=== PATIENT | male | born 1990 | race African-American/Black ===

== ENCOUNTER 2021-06-06 21:34 | Emergency (ER) | payer OTHER ==
[2021-06-06 21:49] VITALS: BP 159/91; PULSE 113; RESP 20; TEMP 98.7
[2021-06-06] MEDS ORDERED: CEPHALEXIN 500MG STARTER PACK 4 CAP BTL PO STA (22:20)
[2021-06-06] MEDS ORDERED: SULFAMETH-TMP DS STARTER PACK 2 TAB BTL PO STA (22:20)
--- NOTE | 2021-06-06 22:21 | ED ---
General Adult HPI - General Chief complaint: Skin/Abscess/Foreign Body Stated complaint: R Thigh Abscess Time Seen by Provider: 06/06/21 22:12 Source: patient, RN notes reviewed Mode of arrival: ambulatory Limitations: no limitations - History of Present Illness Initial comments: 30-year-old male presents emergency Department chief complaint of abscess to his right thigh region. Patient states started days ago states it ruptured a large hole. Patient states he drank a bunch of pus which has stopped with states she's noticed a fall or a period is a diabetic his blood sugars have been well controlled at this time. No other complaints of fevers or chills. - Related Data Previous Rx's Medication Instructions Recorded Cephalexin [Keflex] 500 mg PO Q6HR #40 cap 06/06/21 Sulfamethox-Tmp 800-160Mg [Bactrim 1 each PO Q12HR #20 tab 06/06/21 Ds] Allergies Allergy/AdvReac Type Severity Reaction Status Date / Time Penicillins Allergy Unknown Verified 06/06/21 21:45 Review of Systems ROS Statement: Those systems with pertinent positive or pertinent negative responses have been documented in the HPI. ROS Other: All systems not noted in ROS Statement are negative. Past Medical History Past Medical History: Asthma, Diabetes Mellitus History of Any Multi-Drug Resistant Organisms: None Reported Past Surgical History: No Surgical Hx Reported Past Psychological History: No Psychological Hx Reported Smoking Status: Never smoker Past Alcohol Use History: Rare Past Drug Use History: None Reported General Exam Limitations: no limitations General appearance: alert, in no apparent distress Head exam: Present: atraumatic, normocephalic, normal inspection Eye exam: Present: normal appearance, PERRL, EOMI. Absent: scleral icterus, conjunctival injection, periorbital swelling Respiratory exam: Present: normal lung sounds bilaterally. Absent: respiratory distress, wheezes, rales, rhonchi, stridor Cardiovascular Exam: Present: regular rate, normal rhythm, normal heart sounds. Absent: systolic murmur, diastolic murmur, rubs, gallop, clicks GI/Abdominal exam: Present: soft, normal bowel sounds. Absent: distended, tenderness, guarding, rebound, rigid Extremities exam: Present: other (Right posterior thigh region there is a 2 cm open very large open abscess with no active drainage, no induration.) Course Vital Signs 12/08/21 21:46 Temperature 98.7 F Pulse Rate 113 H Respiratory 20 Rate Blood Pressure 159/91 O2 Sat by Pulse 97 Oximetry Medical Decision Making - Medical Decision Making Patient has a large opening from an abscess. Patient will be started on oral antibiotics return parameters were discussed. Disposition Clinical Impression: Abscess of right thigh Disposition: HOME SELF-CARE Condition: Stable Instructions (If sedation given, give patient instructions): Abscess (ED) Additional Instructions: Please return to the Emergency Department if symptoms worsen or any other concerns. Prescriptions: Sulfamethox-Tmp 800-160Mg [Bactrim Ds] 1 each PO Q12HR #20 tab Cephalexin [Keflex] 500 mg PO Q6HR #40 cap Is patient prescribed a controlled substance at d/c from ED?: No Referrals: Primo Forman DO [Primary Care Provider] - 1-2 days Time of Disposition: 22:21
== END 2021-06-06 23:07 | disposition home or self-care (01) ==
LOC: EC 21:34
DX: L02.415 Cutaneous abscess of right lower limb (principal); J45.909 Unspecified asthma, uncomplicated; E11.9 Type 2 diabetes mellitus without complications; Z88.0 Allergy status to penicillin
CPT/HCPCS: 99282

== ENCOUNTER 2021-10-29 06:48 | Day surgery (SDC) | payer OTHER ==
[2021-10-25 14:46] VITALS: BMI 61.7
--- NOTE | 2021-10-29 00:21 | P.GSHP ---
History of Present Illness H&P Date: 10/29/21 CHIEF COMPLAINT: GERD HISTORY OF PRESENT ILLNESS: The patient is a 31-year-old male who presents reports gastroesophageal reflux disease. Upper endoscopy was offered for further evaluation and management. PAST MEDICAL HISTORY: Please see list. PAST SURGICAL HISTORY: Please see list. MEDICATIONS: Please see list. ALLERGIES: Please see list. SOCIAL HISTORY: No illicit drug use FAMILY HISTORY: No reports of Crohn disease or ulcerative colitis. REVIEW OF ORGAN SYSTEMS: CONSTITUTIONAL: No reports of fevers or chills. GI: Denies any blood in stools or constipation. PHYSICAL EXAM: VITAL SIGNS: Stable GENERAL: Well-developed and pleasant in no acute distress. HEENT: No scleral icterus. Extraocular movements grossly intact. Moist buccal mucosa. NECK: Supple without lymphadenopathy. CHEST: Unlabored respirations. Equal bilateral excursions. CARDIOVASCULAR: Regular rate and rhythm. Distal 2+ pulses. ABDOMEN: Soft, nondistended. MUSCULOSKELETAL: No clubbing, cyanosis, or edema. ASSESSMENT: 1. Gastroesophageal reflux disease PLAN: 1. Recommend proceeding with an upper endoscopy Past Medical History Past Medical History: Asthma, Chest Pain / Angina, Diabetes Mellitus, GERD/Reflux, Hypertension Additional Past Medical History / Comment(s): "high heart rate" - February 2020, History of Any Multi-Drug Resistant Organisms: None Reported Past Surgical History: No Surgical Hx Reported Additional Past Surgical History / Comment(s): lip surgery from dog bite as a child. cardioversion feb 2020 Past Anesthesia/Blood Transfusion Reactions: No Reported Reaction Smoking Status: Never smoker - Past Family History Mother Family Medical History: No Reported History Medications and Allergies Home Medications Medication Instructions Recorded Confirmed Type INSULIN LISPRO (humaLOG) [humaLOG] 20 units SQ TID-W/MEALS 08/31/21 10/25/21 History Insulin Glargine,Hum.rec.anlog 60 unit SQ HS 08/31/21 10/25/21 History [Lantus Solostar Pen] Lisinopril [Zestril] 10 mg PO DAILY 08/31/21 10/25/21 History Allergies Allergy/AdvReac Type Severity Reaction Status Date / Time Penicillins Allergy Unknown Verified 10/25/21 14:38 Childhood
[~2021-10-29 06:48] MED LIST: LACTATED RINGERS 1,000 ML IV SCH; LIDOCAINE 1% (10MG/ML) FOR IV START INTRADERMA PRN
[2021-10-29 07:26] VITALS: TEMP 97
[2021-10-29 07:38] LABS: Glucose,Whole Blood 185 mg/dL (75-99)
[2021-10-29] MEDS ORDERED: MIDAZOLAM 2 MG/2 ML VIAL ONE (08:40)
[2021-10-29] MEDS ORDERED: GLYCOPYRROLATE 0.2 MG/ML 2 ML VIAL ONE (08:40)
[2021-10-29] MEDS ORDERED: LIDOCAINE 2% INJ 20 MG/ML (2 ML VIAL) ONE (08:40)
[2021-10-29] MEDS ORDERED: PROPOFOL 10 MG/ML 20 ML VIAL IV ONE (08:40)
[2021-10-29] MEDS ORDERED: KETAMINE 10 MG/ML 20 ML VIAL ONE (08:40)
[2021-10-29] MEDS ORDERED: IV FLUID CONTINUATION 1,000 ML IV ONE (08:53)
--- NOTE | 2021-10-29 09:01 | P.PCN ---
Date of Procedure: 10/29/21 Description of Procedure: PREOPERATIVE DIAGNOSIS: Gastroesophageal reflux disease. Morbid obesity. POSTOPERATIVE DIAGNOSIS: Gastroesophageal reflux disease with erosive esophagitis Morbid obesity. Gastritis. Esophageal ulcer OPERATION: Esophagogastroduodenoscopy with biopsies along antrum and duodenum SURGEON: Elzbieta Jenkins MD ANESTHESIA: MAC. INDICATIONS: The patient is a 31-year-old female who presents with reflux disease. Benefits and risks of the procedure were described. Informed consent was obtained. DESCRIPTION: The patient was brought into the endoscopy suite and laid in the left lateral decubitus position. An Olympus gastroscope was passed along the posterior oropharynx down to the distal esophagus where the squamocolumnar junction was encountered at 40 cm from the incisors. The stomach was entered and no bile reflux was found. Additional findings are listed below. Biopsies with cold forceps were obtained of the antrum. The first through third portion of the duodenum was examined with biopsy of a cold forceps. Retroflexion of the scope confirmed Hill grade 3 lower esophageal valve. The squamocolumnar junction demonstrated LA grade C erosive esophagitis with esophageal ulceration. The stomach was desufflated. The patient tolerated the procedure well. FINDINGS: Squamocolumnar junction 40 cm from the incisors. Diaphragmatic hiatus at 40 cm. Hill grade 3 lower esophageal valve. LA grade C erosive esophagitis with esophageal ulceration Cold biopsies obtained of the duodenum Chronic gastritis with recent bleed with biopsies obtained RECOMMENDATIONS: Omeprazole 40 mg daily for 2 weeks Plan - Discharge Summary Discharge Rx Participant: No New Discharge Prescriptions: New Omeprazole [PriLOSEC] 40 mg PO DAILY #14 cap Continue Lisinopril [Zestril] 10 mg PO DAILY INSULIN LISPRO (humaLOG) [humaLOG] 20 units SQ TID-W/MEALS Insulin Glargine,Hum.rec.anlog [Lantus Solostar Pen] 60 unit SQ HS Discharge Medication List INSULIN LISPRO (humaLOG) [humaLOG] 20 units SQ TID-W/MEALS 08/31/21 [History] Insulin Glargine,Hum.rec.anlog [Lantus Solostar Pen] 60 unit SQ HS 08/31/21 [History] Lisinopril [Zestril] 10 mg PO DAILY 08/31/21 [History] Omeprazole [PriLOSEC] 40 mg PO DAILY #14 cap 10/29/21 [Rx] Follow up [facility]ment(s[facility]Ref[facility] [place] [facility] Patient Instructions/Handouts: *Surgery [facility] - (Anesthesia) Endoscopy Discharge Instructions, Upper Endoscopy (DC), Peptic Ulcer (GEN), GERD (Gastroesophageal Reflux Disease) (ED), Diet for Stomach Ulcers and Gastritis (ED) Discharge Disposition: HOME SELF-CARE
[2021-10-29 09:15] VITALS: BP 145/88; PULSE 100; RESP 18
== END 2021-10-29 10:01 | disposition home or self-care (01) ==
LOC: ORWHC2ENDO 06:48
PROVIDERS: ATTEND Surgery Plastic and Reconstructive Surgery
DX: K21.00 Gastro-esophageal reflux disease with esophagitis, without bleeding (principal); K22.10 Ulcer of esophagus without bleeding; K29.50 Unspecified chronic gastritis without bleeding; E66.01 Morbid (severe) obesity due to excess calories; E11.9 Type 2 diabetes mellitus without complications; I10 Essential (primary) hypertension; K21.9 Gastro-esophageal reflux disease without esophagitis; J45.909 Unspecified asthma, uncomplicated; Z79.4 Long term (current) use of insulin; Z88.0 Allergy status to penicillin; Z79.899 Other long term (current) drug therapy
CPT/HCPCS: 43239; 88305; 88312; J2250; J2704; J2001

== ENCOUNTER → 2021-11-19 | Outpatient (CLI) | payer OTHER ==
[2021-11-19 14:17] LABS: INR 0.9 (<1.2); Prothrombin Time 10.2 sec (9.0-12.0)
[2021-11-19 18:40] LABS: HCT 45.6 % (39.6-50.0); HGB 15.2 g/dL (13.0-17.0); MCH 28.8 pg (27.0-32.0); MCHC 33.3 g/dL (32.0-37.0); MCV 86.4 fL (80.0-97.0); Mean Platelet Volume 11.3 fL (9.5-12.2); NRBC Per 100 WBC 0 /100 WBCS (0.0-0.0); Platelet Count 237 X 10*3/uL (140-440); RBC 5.28 X 10*6/uL (4.40-5.60); RDW 12.8 % (11.5-14.5); WBC 6.66 X 10*3/uL (4.50-10.00)
[2021-11-19 20:45] LABS: ALT 43 U/L (10-49); AST 29 U/L (14-35); African American GFR (CKD) 149.7 (60.0-200.0); Albumin 4.5 g/dL (3.8-4.9); Alkaline Phosphatase 96 U/L (41-126); BUN/Creat Ratio 14.56 Ratio (12.00-20.00); Blood Urea Nitrogen 9.4 mg/dL (9.0-27.0); Calcium 9.8 mg/dL (8.7-10.3); Carbon Dioxide 23.8 mmol/L (20.0-27.5); Chloride 103 mmol/L (96-109); Globulin 2.7 g/dL (1.6-3.3); Glucose 197 mg/dL (70-110); Iron 55 ug/dL (65-175); Magnesium 1.8 mg/dL (1.5-2.4); Non-African American GFR(CKD) 129.1 (60.0-200.0); Phosphorus 3.2 mg/dL (2.4-5.1); Potassium 4.3 mmol/L (3.5-5.5); Sodium 140 mmol/L (135-145); Total Iron Binding Capacity 325 ug/dL (228-460); Total Protein 7.2 g/dL (6.2-8.2)
[2021-11-19 20:52] LABS: Chol/HDL Ratio 4.99 Ratio; LDL Cholesterol,Calculated 105.7 mg/dL (0.0-131.0); Prealbumin 22.5 mg/dL (18.0-42.0)
[2021-11-20 13:49] LABS: Zinc, Serum 75 ug/dL (60-130)
[2021-11-21 08:11] LABS: Vit B1(Thiamine) 97 ug/L (38-122)
[2021-11-21 08:38] LABS: Vitamin A 47 ug/dL (38-106)
[2021-11-22 00:41] LABS: Selenium 137 mcg/L (63-160)
== END | disposition home or self-care (01) ==
LOC: LABWHC1 12:28
PROVIDERS: ATTEND Surgery Plastic and Reconstructive Surgery
DX: E66.01 Morbid (severe) obesity due to excess calories (principal); D50.8 Other iron deficiency anemias; K90.89 Other intestinal malabsorption; E55.9 Vitamin D deficiency, unspecified; K74.1 Hepatic sclerosis; N19 Unspecified kidney failure; T56.894A Toxic effect of other metals, undetermined, initial encounter; K50.90 Crohn's disease, unspecified, without complications
CPT/HCPCS: 36415; 80053; 80061; 82306; 82525; 82607; 82728; 82746; 83036; 83540; 83550; 83735; 83970; 84100; 84134; 84255; 84425; 84443; 84590; 84630; 85027; 85610; 85730

== ENCOUNTER → 2022-02-27 | Outpatient (CLI) | payer OTHER ==
[2022-02-27 16:48] VITALS: BP 136/97; PULSE 82; RESP 16; TEMP 98.5; BMI 60.3
--- NOTE | 2022-02-27 17:14 | P.BASOAP ---
Subjective Progress Note Date: 02/27/22 He comes in with weight loss. He is losing weight. He has swelling of the legs. He was pending disability. He needs 6 months. He needs a food log. He has severe co-morbidities. He is looking sleeve. He has successful weight loss. He is now looking into the gastric bypass. Went over [facility] [place]. Objective - Vital Signs Vital signs: Vital Signs Temp 98.5 F 02/27/22 16:45 Pulse 82 02/27/22 16:45 Resp 16 02/27/22 16:45 BP 136/97 02/27/22 16:45 Pulse Ox FiO2 Intake & Output 02/26/22 02/27/22 02/27/22 18:59 06:59 18:59 Weight 177.355 kg Assessment/Plan Plan: Date: 02/27/22 Initial Weight: 180.983 kg Initial BMI: 61.5 Current Weight: 177.355 kg Current BMI: 60.3 Type of Surgery: Total Volume in Band: Previous Volume: Volume Removed: Volume Added: Band Size:
== END | disposition home or self-care (01) ==
LOC: BARWHC3 16:17
PROVIDERS: ATTEND Surgery Plastic and Reconstructive Surgery
DX: E66.01 Morbid (severe) obesity due to excess calories (principal); R63.4 Abnormal weight loss; R60.9 Edema, unspecified; Z68.44 Body mass index [BMI] 60.0-69.9, adult
CPT/HCPCS: 99211

== ENCOUNTER → 2022-04-15 | Outpatient (CLI) | payer OTHER ==
[2022-04-15 11:22] VITALS: BMI 62.1
== END ==
LOC: BARWHC3 08:27
PROVIDERS: ATTEND Surgery Plastic and Reconstructive Surgery
DX: E66.01 Morbid (severe) obesity due to excess calories (principal); Z68.44 Body mass index [BMI] 60.0-69.9, adult; Z88.0 Allergy status to penicillin; Z71.3 Dietary counseling and surveillance
CPT/HCPCS: 97804

== ENCOUNTER → 2022-06-10 | Outpatient (CLI) | payer OTHER | END | disposition home or self-care (01) | LOC: LABPAT 09:29 | PROVIDERS: ATTEND Surgery Plastic and Reconstructive Surgery | DX: Z01.812 Encounter for preprocedural laboratory examination (principal) ==

== ENCOUNTER → 2022-06-14 | Outpatient (CLI) | payer OTHER | END | disposition home or self-care (01) | LOC: LABWHC1 08:36 | PROVIDERS: ATTEND Surgery Plastic and Reconstructive Surgery | DX: Z01.818 Encounter for other preprocedural examination (principal) | CPT/HCPCS: 36415; 93005 ==

== ENCOUNTER 2022-06-17 10:41 | Inpatient (IN) | payer OTHER ==
[2022-06-11 13:59] LABS: African American GFR (CKD) 144.7 (60.0-200.0); Albumin 4.4 g/dL (3.8-4.9); Albumin/Globulin Ratio 1.96 (1.60-3.17); Anion Gap 11.9 mmol/L (10.00-18.00); BUN/Creat Ratio 16.71 Ratio (12.00-20.00); Basophils # (A) 0.01 X 10*3/uL (0.00-0.10); Basophils % (A) 0.3 %; Blood Urea Nitrogen 11.7 mg/dL (9.0-27.0); Calcium 9.5 mg/dL (8.7-10.3); Carbon Dioxide 25.4 mmol/L (20.0-27.5); Eosinophils # (A) 0.06 X 10*3/uL (0.04-0.35); Eosinophils % (A) 1.6 %; Globulin 2.3 g/dL (1.6-3.3); HGB 16.4 g/dL (13.0-17.0); Immature Grans, Automated 0.3 %; Lymphocytes # (A) 1.54 X 10*3/uL (0.90-5.00); Lymphocytes % (A) 40.5 %; MCH 30.3 pg (27.0-32.0); MCHC 34.9 g/dL (32.0-37.0); MCV 86.9 fL (80.0-97.0); Mean Platelet Volume 11.4 fL (9.5-12.2); Monocytes # (A) 0.38 X 10*3/uL (0.20-1.00); NRBC Per 100 WBC 0 /100 WBCS (0.0-0.0); Neutrophils % (A) 47.3 %; Non-African American GFR(CKD) 124.9 (60.0-200.0); Platelet Count 205 X 10*3/uL (140-440); Potassium 4.6 mmol/L (3.5-5.5); RBC 5.41 X 10*6/uL (4.40-5.60); RDW 12.3 % (11.5-14.5); Total Bilirubin 1.1 mg/dL (0.30-1.20); Total Protein 6.7 g/dL (6.2-8.2)
[~2022-06-17 10:41] MED LIST changes: +CHLORHEXIDINE GLUCONATE 15 ML CUP MUCOUS MEM PRN; -LACTATED RINGERS 1,000 ML IV SCH; -LIDOCAINE 1% (10MG/ML) FOR IV START INTRADERMA PRN; +PANTOPRAZOLE 40 MG/10 ML VIAL IVP PRN; +ceFAZolin 3 GM in SODIUM CHLORIDE 0.9% 100 ML IVPB PRN
[2022-06-17] MEDS ORDERED: SCOPOLAMINE 1 MG/72 HR PATCH TRANSDERM STA (10:44)
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
[2022-06-17] MEDS ORDERED: LIDOCAINE 1% (10MG/ML) FOR IV START INTRADERMA PRN (10:50)
[2022-06-17] MEDS ORDERED: ONDANSETRON 4 MG/2 ML VIAL IVP ONE (10:50)
[2022-06-17] MEDS ORDERED: MIDAZOLAM 2 MG/2 ML VIAL IV PRN (10:50)
[2022-06-17] MEDS ORDERED: DEXAMETHASONE SOD PHOSPHATE 4 MG/ML 1 ML VIAL IV ONE (10:50)
[2022-06-17] MEDS ORDERED: HEPARIN SODIUM,PORCINE/PF 5,000 UNIT/0.5 ML SYRINGE SQ PRN (10:50)
[2022-06-17 11:05] LABS: Glucose,Whole Blood 121 mg/dL (70-110)
--- NOTE | 2022-06-17 11:11 | P.HPADDEND ---
H&P Addendum H&P Addendum Date: 06/17/22 In the event of severe intra-abdominal scar tissue, patient given options of lysis of adhesions with delayed gastric bypass or sleeve gastrectomy at the time of the procedure. Patient opted for sleeve gastrectomy in the event of severe intra-abdominal scar tissue.
[2022-06-17] MEDS: LACTATED RINGERS 1,000 ML IV SCH (11:12)
[2022-06-17] MEDS ORDERED: SUCCINYLCHOLINE CHLORIDE 200 MG/10 ML VIAL IV ONE (11:59)
[2022-06-17] MEDS ORDERED: GLYCOPYRROLATE 0.2 MG/ML 2 ML VIAL ONE (11:59)
[2022-06-17] MEDS ORDERED: LIDOCAINE 2% INJ 20 MG/ML (2 ML VIAL) ONE (11:59)
[2022-06-17] MEDS ORDERED: KETAMINE 10 MG/ML 20 ML VIAL ONE (11:59)
[2022-06-17] MEDS ORDERED: fentaNYL (PF) 50 MCG/ML 2 ML AMP ONE (11:59)
[2022-06-17] MEDS ORDERED: PROPOFOL 10 MG/ML 20 ML VIAL IV ONE (11:59)
[2022-06-17] MEDS ORDERED: NEOSTIGMINE 1 MG/ML 10 ML VIAL ONE (11:59)
[2022-06-17] MEDS ORDERED: MIDAZOLAM 2 MG/2 ML VIAL ONE (11:59)
[2022-06-17] MEDS ORDERED: VECURONIUM 10 MG VIAL IV ONE (11:59)
[2022-06-17] MEDS ORDERED: HYDROmorphone (PF) 1 MG/ML ONE (11:59)
[2022-06-17] MEDS ORDERED: ONDANSETRON 4 MG/2 ML VIAL ONE (11:59)
[2022-06-17] MEDS ORDERED: BUPIVACAIN-EPI 0.25%-1:200,000 30 ML VIAL SQ ONE (12:31)
[2022-06-17] MEDS ORDERED: LACTATED RINGERS 1,000 ML IV ONE (13:44)
[2022-06-17] MEDS ORDERED: NALOXONE 0.4 MG/ML 1 ML VIAL IV PRN ×2 (16:18→19:46)
[2022-06-17] MEDS ORDERED: HYDROmorphone 1 MG/ML 1 ML SYRINGE IVP PRN (16:18)
[2022-06-17] MEDS ORDERED: HYOSCYAMINE ORAL DROPS 1.875 MG/15 ML BOTTLE PO PRN (16:18)
[2022-06-17] MEDS ORDERED: DEXTROSE 50% SYRINGE 50 ML IVP PRN ×2 (16:21)
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
[2022-06-17] MEDS: HYDROmorphone 0.5 MG/0.5 ML SYRINGE IVP PRN ×2 (16:44→16:54)
[2022-06-17 17:16] LABS: Glucose,Whole Blood 223 mg/dL (70-110)
[2022-06-17] MEDS: INSULIN ASPART (NovoLOG) 100 UNIT/ML VIAL SQ SCH (17:18)
[2022-06-17] MEDS: SIMETHICONE 40 MG/0.6 ML DROPS 2,000 MG/30 ML BOTTLE PO SCH (17:49)
[2022-06-17] MEDS: ONDANSETRON 4 MG/2 ML VIAL IVP SCH (17:49)
[2022-06-17] MEDS: ACETAMINOPHEN IV (For NPO) 1,000 MG in EMPTY BAG 1 BAG IVPB SCH (17:49)
[2022-06-17] MEDS ORDERED: SODIUM CHLORIDE 0.9% 1,000 ML IV ONE (19:47)
[2022-06-17] MEDS: ALBUTEROL NEBULIZED 2.5 MG/3 ML INHALATION SCH (19:51)
[2022-06-17] MEDS ORDERED: ceFAZolin 3 GM in SODIUM CHLORIDE 0.9% 100 ML IVPB SCH (20:00)
--- NOTE | 2022-06-17 20:09 | P.PN ---
Progress Note - Text Progress Note Date: 06/17/22 Per discussion with nursing, patient has mild chest pain and is to be expected following surgery. Protonix prescribed. Troponins and EKG to be sent.
[2022-06-17] MEDS: PANTOPRAZOLE 40 MG/10 ML VIAL IV SCH (20:52)
[2022-06-17] MEDS: 0.9% NACL WITH KCL 20 MEQ/L 1,000 ML IV SCH (20:56)
[2022-06-17] MEDS: fentaNYL PCA 500 MCG/50 ML BAG IV PRN (21:14)
[2022-06-17 21:21] LABS: Basophils % (A) 0 %; Eosinophils % (A) 0 %; HCT 46.4 % (39.0-53.0); HGB 15.9 gm/dL (13.0-17.5); Lymphocytes # (A) 0.5 k/uL (1.0-4.8); Lymphocytes % (A) 5 %; MCH 30.7 pg (25.0-35.0); MCHC 34.2 g/dL (31.0-37.0); MCV 89.6 fL (80.0-100.0); Mean Platelet Volume 9.6; Monocytes # (A) 0.6 k/uL (0-1.0); Monocytes % (A) 5 %; Neutrophils # (A) 10.5 k/uL (1.3-7.7); Neutrophils % (A) 89 %; Platelet Count 175 k/uL (150-450); RBC 5.18 m/uL (4.30-5.90); WBC 11.9 k/uL (3.8-10.6)
[2022-06-18] LABS: Glucose,Whole Blood 199 mg/dL (70-110)
[2022-06-18] MEDS: SIMETHICONE 40 MG/0.6 ML DROPS 2,000 MG/30 ML BOTTLE PO SCH ×4 (00:03→17:18)
[2022-06-18] MEDS: ACETAMINOPHEN IV (For NPO) 1,000 MG in EMPTY BAG 1 BAG IVPB SCH ×4 (00:04→17:18)
[2022-06-18] MEDS: ONDANSETRON 4 MG/2 ML VIAL IVP SCH ×4 (00:04→17:18)
[2022-06-18] MEDS: INSULIN ASPART (NovoLOG) 100 UNIT/ML VIAL SQ SCH ×5 (00:05→23:47)
[2022-06-18] MEDS: 0.9% NACL WITH KCL 20 MEQ/L 1,000 ML IV SCH ×4 (00:05→17:18)
[2022-06-18 05:45] LABS: Glucose,Whole Blood 188 mg/dL (70-110)
[2022-06-18] MEDS: MAGNESIUM SULFATE-D5W PMX 1 GM in DEXTROSE/WATER 1 100ML.BAG IVPB SCH ×4 (06:52→10:54)
[2022-06-18] MEDS: PANTOPRAZOLE 40 MG/10 ML VIAL IV SCH ×2 (08:00→20:34)
[2022-06-18] MEDS: ENOXAPARIN 40 MG/0.4 ML SYRINGE SQ SCH (08:01)
[2022-06-18] MEDS: ALBUTEROL NEBULIZED 2.5 MG/3 ML INHALATION SCH ×4 (08:29→18:35)
[2022-06-18 09:03] LABS: Basophils # (A) 0.01 X 10*3/uL (0.00-0.10); Basophils % (A) 0.1 %; Eosinophils # (A) 0 X 10*3/uL (0.04-0.35); Eosinophils % (A) 0 %; HCT 42.4 % (39.6-50.0); HGB 14.8 g/dL (13.0-17.0); Immature Grans, Automated 0.4 %; Lymphocytes # (A) 0.99 X 10*3/uL (0.90-5.00); Lymphocytes % (A) 9.8 %; MCH 29.5 pg (27.0-32.0); MCHC 34.9 g/dL (32.0-37.0); MCV 84.6 fL (80.0-97.0); Mean Platelet Volume 11.1 fL (9.5-12.2); Monocytes # (A) 0.79 X 10*3/uL (0.20-1.00); Monocytes % (A) 7.8 %; NRBC Per 100 WBC 0 /100 WBCS (0.0-0.0); Neutrophils # (A) 8.24 X 10*3/uL (1.80-7.70); Neutrophils % (A) 81.9 %; Platelet Count 169 X 10*3/uL (140-440); RBC 5.01 X 10*6/uL (4.40-5.60); RDW 12.8 % (11.5-14.5); WBC 10.07 X 10*3/uL (4.50-10.00)
[2022-06-18 09:18] LABS: Magnesium 1.7 mg/dL (1.5-2.4)
[2022-06-18 09:26] LABS: African American GFR (CKD) 144.7 (60.0-200.0); Anion Gap 14.3 mmol/L (10.00-18.00); Blood Urea Nitrogen 4.1 mg/dL (9.0-27.0); Calcium 8.8 mg/dL (8.7-10.3); Carbon Dioxide 16.7 mmol/L (20.0-27.5); Non-African American GFR(CKD) 124.9 (60.0-200.0); Phosphorus 3.1 mg/dL (2.4-5.1); Potassium 4.3 mmol/L (3.5-5.5)
[2022-06-18] MEDS: LACTATED RINGERS 1,000 ML IV SCH (10:55)
[2022-06-18 11:14] LABS: Glucose,Whole Blood 178 mg/dL (70-110)
[2022-06-18 11:16] VITALS: BMI 56.4
--- NOTE | 2022-06-18 12:57 | FL ---
EXAMINATION TYPE: FL UGI DATE OF EXAM: 06/18/2022 COMPARISON: NONE HISTORY: Postoperative bariatric surgery TECHNIQUE: A single contrast UGI study is performed. A total of 54 seconds of fluoroscopic time was utilized during procedure and 12 images obtained. FINDINGS: Flag Car Driver image of the abdomen shows no gross abnormality. The esophagus shows normal motility and emptying into the gastric. Contrast extends into the jejunal portion of the Lydia-en-Y. No evidence of extravasation.. IMPRESSION: Postsurgical changes with no evidence of obstruction or extravasation..
[2022-06-18] MEDS: fentaNYL PCA 500 MCG/50 ML BAG IV PRN (13:41)
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
[2022-06-18 16:15] LABS: Glucose,Whole Blood 160 mg/dL (70-110)
[2022-06-18 23:42] LABS: Glucose,Whole Blood 147 mg/dL (70-110)
[2022-06-19] MEDS: SIMETHICONE 40 MG/0.6 ML DROPS 2,000 MG/30 ML BOTTLE PO SCH ×2 (00:15→05:58)
[2022-06-19] MEDS: ONDANSETRON 4 MG/2 ML VIAL IVP SCH ×2 (00:15→05:58)
[2022-06-19] MEDS: ACETAMINOPHEN IV (For NPO) 1,000 MG in EMPTY BAG 1 BAG IVPB SCH ×2 (00:16→05:58)
[2022-06-19] MEDS: 0.9% NACL WITH KCL 20 MEQ/L 1,000 ML IV SCH (05:19)
[2022-06-19] MEDS: INSULIN ASPART (NovoLOG) 100 UNIT/ML VIAL SQ SCH (05:54)
[2022-06-19 05:55] LABS: Glucose,Whole Blood 130 mg/dL (70-110)
[2022-06-19 08:27] VITALS: BP 128/77; RESP 15; TEMP 98.3
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
[2022-06-19] MEDS: ENOXAPARIN 40 MG/0.4 ML SYRINGE SQ SCH (08:46)
[2022-06-19] MEDS: ALBUTEROL NEBULIZED 2.5 MG/3 ML INHALATION SCH (08:47)
[2022-06-19] MEDS: PANTOPRAZOLE 40 MG/10 ML VIAL IV SCH (08:47)
[2022-06-19 10:08] VITALS: PULSE 98
== END 2022-06-19 11:22 | disposition home or self-care (01) | DRG 620 ==
LOC: 2ORMAIN 10:41 → 4SSUR 15:52
PROVIDERS: ADMIT Surgery Plastic and Reconstructive Surgery; ATTEND Surgery Plastic and Reconstructive Surgery
PROC: 0DNW4ZZ Release Peritoneum, Percutaneous Endoscopic Approach (ICD-10-PCS; 2022-06-17)
PROC: 8E0W4CZ Robotic Assisted Procedure of Trunk Region, Percutaneous Endoscopic Approach (ICD-10-PCS; 2022-06-17)
PROC: 0D164ZA Bypass Stomach to Jejunum, Percutaneous Endoscopic Approach (ICD-10-PCS; principal; 2022-06-17 12:00)
DX: E66.01 Morbid (severe) obesity due to excess calories (principal); I47.1 Supraventricular tachycardia; K22.10 Ulcer of esophagus without bleeding; I11.9 Hypertensive heart disease without heart failure; J45.909 Unspecified asthma, uncomplicated; E11.65 Type 2 diabetes mellitus with hyperglycemia; Z68.44 Body mass index [BMI] 60.0-69.9, adult; N62 Hypertrophy of breast; K21.9 Gastro-esophageal reflux disease without esophagitis; K29.50 Unspecified chronic gastritis without bleeding; E55.9 Vitamin D deficiency, unspecified; E50.9 Vitamin A deficiency, unspecified; E61.1 Iron deficiency; E78.1 Pure hyperglyceridemia; R74.8 Abnormal levels of other serum enzymes; K66.0 Peritoneal adhesions (postprocedural) (postinfection); G47.30 Sleep apnea, unspecified; Z87.828 Personal history of other (healed) physical injury and trauma; Z79.4 Long term (current) use of insulin; Z79.85 Long-term (current) use of injectable non-insulin antidiabetic drugs; Z79.899 Other long term (current) drug therapy; Z88.0 Allergy status to penicillin; Z28.310 Unvaccinated for COVID-19
CPT/HCPCS: 74240; 80051; 80053; 82310; 82565; 83036; 83735; 84100; 84484; 84520; 85025; 86850; 86900; 86901; 93005; 94640

== ENCOUNTER → 2022-06-28 | Outpatient (CLI) | payer OTHER ==
[~2022-06-28] MED LIST changes: -CHLORHEXIDINE GLUCONATE 15 ML CUP MUCOUS MEM PRN; -PANTOPRAZOLE 40 MG/10 ML VIAL IVP PRN; +SODIUM CHLORIDE 0.9% 2,000 ML IV NR; +SODIUM CHLORIDE 0.9% 500 ML 500 ML in EMPTY BAG 1 BAG IV PRN; -ceFAZolin 3 GM in SODIUM CHLORIDE 0.9% 100 ML IVPB PRN
[2022-06-28 09:00] VITALS: BP 133/86; PULSE 101; RESP 16; TEMP 98.3
--- NOTE | 2022-06-28 10:14 | P.BASOAP ---
Subjective Progress Note Date: 06/28/22 Patient present to have IV fluid bolus. No abdominal pain. No infection. Heart rate improving. Recommend continued IV fluids. Protein shakes advised. Follow-up in one week. Objective - Vital Signs Vital signs: Vital Signs Temp 98.3 F 06/28/22 08:57 Pulse 101 H 06/28/22 08:57 Resp 16 06/28/22 08:57 BP 133/86 06/28/22 08:57 Pulse Ox FiO2 Intake & Output 06/27/22 06/28/22 06/28/22 18:59 06:59 18:59 Weight 160.572 kg Assessment/Plan Plan: Date: 06/28/22 Initial Weight: 180.983 kg Initial BMI: Current Weight: 160.572 kg Current BMI: Type of Surgery: Total Volume in Band: Previous Volume: Volume Removed: Volume Added: Band Size:
== END ==
LOC: PROCWHC3 08:50
PROVIDERS: ATTEND Surgery Plastic and Reconstructive Surgery
DX: E86.0 Dehydration (principal); Z88.0 Allergy status to penicillin
CPT/HCPCS: 96360; 96361

== ENCOUNTER 2022-07-14 09:28 | Emergency (ER) | payer OTHER ==
[2022-07-14] MEDS ORDERED: PANTOPRAZOLE 40 MG/10 ML VIAL IVP STA (09:53)
[2022-07-14] MEDS ORDERED: SODIUM CHLORIDE 0.9% 2,000 ML IV STA (09:53)
[2022-07-14] MEDS ORDERED: ONDANSETRON 4 MG/2 ML VIAL IVP STA (09:53)
[2022-07-14] MEDS ORDERED: MORPHINE SULFATE 4 MG/ML SYRINGE IVP STA ×2 (09:54→15:39)
[2022-07-14] MEDS ORDERED: KETOROLAC 15 MG/ML 1 ML VIAL IVP STA (09:54)
--- NOTE | 2022-07-14 10:09 | ED ---
General Adult HPI - General Chief complaint: Dizziness Stated complaint: Dizziness,L. Foot Pain Time Seen by Provider: 07/14/22 09:44 Source: patient, RN notes reviewed, old records reviewed Mode of arrival: ambulatory Limitations: no limitations - History of Present Illness Initial comments: Patient is a 31-year-old male with past medical history remarkable for gastric bypass surgery presents emergency Department complaining of multi day history of decreased oral intake due to the "fullness sensation" in his stomach, concern for dehydration, lightheadedness, shortness of breath, nonspecific abdominal discomfort, as well as nausea. Was supposed to come in on Friday for IV fluids per his surgeon Dr. Lowe, however he did not. States symptoms, have gotten worse which is why he presents here for further evaluation. Denies any lower extremity edema. Does endorse dorsal left foot pain which he believes is gout. The pain as intermittent and achy in his abdomen. Nonspecific. Minimal at this time. Endorses shortness of breath with exertion but also with generalized feeling of fatigue and lack of energy. Denies any coughing or fever s. Denies any chest pain. Endorses nausea with an episode of nonbilious nonbloody emesis. Primary complaint is a feeling of fullness any chest or drink the correct amount of water he is supposed to drink. Does endorse that he believes he is dehydrated at this time. Presents for further evaluation at this time. Denies any numbness, focal weakness. Denies any headache, blurry vision. No history of blood clots in himself or family members. No cardiac history. Does have a history of diabetes.Patient states that his sugars are typically running in the 100s. He is an insulin-dependent diabetic. No history of DKA. - Related Data Home Medications Medication Instructions Recorded Confirmed INSULIN LISPRO (HumaLOG) [humaLOG] See Protocol SQ TID-W/MEALS 07/14/22 07/14/22 Insulin Glargine [Lantus Vial] 7 unit SQ HS 07/14/22 07/14/22 Previous Rx's Medication Instructions Recorded Acetaminophen Tab [Tylenol Tab] 1,000 mg PO Q6HR PRN #30 tablet 06/19/22 Omeprazole [PriLOSEC] 40 mg PO DAILY #30 cap 06/19/22 Ondansetron Odt [Zofran Odt] 4 mg PO Q8HR PRN #9 tab 06/19/22 Simethicone 40 mg/0.6 ml Drops 40 mg PO PCHS PRN #30 ml 06/19/22 [Mylicon Drops] bisacodyL [Dulcolax] 5 mg PO DAILY PRN #10 tab MDD 15mg 06/19/22 Allergies Allergy/AdvReac Type Severity Reaction Status Date / Time Penicillins Allergy Rash/Hives, Verified 07/14/22 12:48 Difficulty breathing Review of Systems ROS Statement: Those systems with pertinent positive or pertinent negative responses have been documented in the HPI. Review of Systems: CONST: Denies fever EYES: Denies blurry vision ENT: Endorses dry tongue C/V: Denies Chest pain RESP: Endorses nonspecific shortness of breath. GI: Endorses nonspecific abdominal pain : Denies dysuria SKIN: Denies rash. MSK: Denies joint pain. NEURO: Endorses lightheadedness ROS Other: All systems not noted in ROS Statement are negative. Past Medical History Past Medical History: Asthma, Chest Pain / Angina, Diabetes Mellitus, GERD/Reflux, Hypertension Additional Past Medical History / Comment(s): "high heart rate" - February 2020,. gout History of Any Multi-Drug Resistant Organisms: None Reported Past Surgical History: No Surgical Hx Reported Additional Past Surgical History / Comment(s): lip surgery from dog bite as a child, Gastric Bypass 06/17/22. cardioversion feb 2020 Past Anesthesia/Blood Transfusion Reactions: No Reported Reaction Past Psychological History: No Psychological Hx Reported Smoking Status: Never smoker Past Alcohol Use History: None Reported Past Drug Use History: None Reported - Past Family History Mother Family Medical History: No Reported History General Exam - General Exam Comments Initial Comments: General: Appears in no acute distress. Patient is morbidly obese. HEAD: Normal with no signs of head trauma. EYES: PERRLA, EOMI, conjunctiva normal, no discharge. ENT: Hearing grossly intact, normal oropharynx. Dry mucous membranes. RESPIRATORY: Clear breath sounds bilaterally. No wheezes, rales, or rhonchi. C/V: Tachycardia with a regular rhythm. S1 and S2 auscultated, no edema, peripheral pulses 2+ and intact throughout ABD: Abd is soft, nondistended. No focal tenderness to palpation. Surgical sites appear within acceptable limits. No evidence of acute infection. No guarding. No rebound tenderness. No peritoneal signs. EXT: Normal range of motion, no obvious deformity. Left dorsal foot tenderness palpation with mild bruising. No obvious trauma. SKIN: No rashes or lesions observed on exposed skin. NEURO: Alert and oriented x 4. Cranial nerves II-XII intact. No focal sensory or strength deficits. Limitations: no limitations Course Vital Signs 07/14/22 07/14/22 07/14/22 09:30 10:23 11:51 Temperature 98.1 F 98.2 F Pulse Rate 140 H 116 H 100 Respiratory 22 18 18 Rate Blood Pressure 155/98 143/106 137/88 O2 Sat by Pulse 97 94 L 97 Oximetry 07/14/22 07/14/22 07/14/22 13:00 14:00 15:07 Temperature Pulse Rate 103 H 95 110 H Respiratory 18 18 18 Rate Blood Pressure 132/81 132/84 128/83 O2 Sat by Pulse 95 94 L 96 Oximetry Medical Decision Making - Medical Decision Making Based on the patient's presentation and physical exam, I'm concerned for suspected dehydration and the patient but cannot rule out other etiology for his current symptoms. Does have nonspecific abdominal pain with sinus tachycardia as well as subjective shortness of breath. Vital signs other than the sinus tachycardia are within acceptable limits. Patient will receive a 2 L fluid bolus, as well as pain medications for his foot and IV Zofran and Protonix. We will obtain abdominal laboratory studies in addition to a screening d-dimer for his shortness of breath. I do believe most of his symptoms are likely related to his dehydration but cannot definitively rule out PE at this time. He is low risk, and therefore we will start with a screening d-dimer. He is not hypoxic. No increased work of breathing. He was in agreement with this plan. Appears to be chronically tachycardic when looking back at prior visits. EKG shows no signs of acute ischemia. Shows chronic changes.Chest x-ray shows n o acute cardio primary process, foot x-ray shows no acute process. He shows sinus tachycardia with no signs of acute ischemia. Laboratory studies remarkable for an elevated d-dimer 0.6. Patient has acetone in his serum as well as 4+ ketones in his urine but does not appear to be in DKA, as the patient has no anion gap. Patient does appear dehydrated on labs, as well as clinically will be given multiple fluid boluses. Covid is negative. Urine is otherwise unremarkable. Due to the elevated d-dimer, I did recommend we obtain a chest CT to rule out PE as well as abdominal and pelvis CT with contrast to evaluate for hisAbdominal pain. CT PE was negative for acute pulmonary embolus. CT abdomen and pelvis revealed his surgery with findings concerning for left upper quadrant fat stranding as well as possible dehiscence at the anastomosis. Cannot rule out phlegmon. At this time it did reach out to Dr. Du of surgery who is covering for Dr. Lowe who is out of town for the next week per Dr. Du. I discussed the case with him and as he states he does not perform this type of gastric bypass surgery, is uncomfortable with the patient remaining at this hospital. He recommended antibiotics be started the patient be transferred to [facility] where he is sent patient's in the past with similar complaints. I discussed the patient's findings as well as this plan with the patient and he was in agreement this plan. Is ALLERGIC to penicillins and therefore was started on IV levofloxacin and Flagyl. We'll continue fluid hydration. We'll continue analgesia medications, antiemetics as well as keep the patient nothing by mouth. Patient's vitals are improved at this time with improvement in his sinus tachycardia, which is somewhat chronic. Remainder of his vital signs within acceptable limits. After a long delay in arranging for transfer to [facility], which was initially started at 1248 the patient was at accepted at approximately 1540. Excepting physician is Dr. Figueroa of surgery. She requested the patient be transferred via [facility] and will be placed in cat 2 at [facility] emergency department. I discussed this with the patient and he was in agreement this plan. Patient was transferred in serious condition. Was pt. sent in by a medical professional or institution (, PA, CARDROOM WORKER, urgent care, hospital, or alf...) When possible be specific @ -No Did you speak to anyone other than the patient for history (EMS, parent, family, police, friend...)? What history was obtained from this source @ -No Did you review nursing and triage notes (agree or disagree)? Why? @ -I reviewed and agree with nursing and triage notes Were old charts reviewed (outside hosp., previous admission, EMS record, old EKG, old radiological studies, urgent care reports/EKG's, alf records)? Report findings @ -Yes, old charts were reviewed. Differential Diagnosis (chest pain, altered mental status, abdominal pain women, abdominal pain men, vaginal bleeding, weakness, fever, dyspnea, syncope, headache, dizziness, GI bleed, back pain, seizure, CVA, palpatations, mental health)? @ -Pulmonary embolism, intra-abdominal infection, postop complication, dehydration, DKA. This list is not all inclusive. EKG interpreted by me (3pts min.). @ -As above X-rays interpreted by me (1pt min.). @ -Chest x-ray showed no acute cardiopulmonary process. Foot x-ray showed no acute process. CT interpreted by me (1pt min.). @ -CT PE revealed no pulmonary embolism. CT of the abdomen and pelvis revealed a fluid collection near the end anastomosis site. I agree with radiology that this is concerning for a leak versus possible infection. No other obvious findings. U/S interpreted by me (1pt. min.). @ -None done What testing was considered but not performed or refused? (CT, X-rays, U/S, labs)? Why? @ -None What meds were considered but not given or refused? Why? @ -None Did you discuss the management of the patient with other professionals (professionals i.e. , PA, CARDROOM WORKER, lab, RT, psych nurse, health social work professor, apprentice pattern maker, teacher, border patrol officer, case consultant)? Give summary @ -No Was smoking cessation discussed for >3mins.? @ -No Was critical care preformed (if so, how long)? @ -Yes. 35 minutes. See note. Were there social determinants of health that impacted care today? How? (H omelessness, low income, unemployed, alcoholism, drug addiction, transportation, low edu. Level, literacy, decrease access to med. care, long-term, rehab)? @ -No Was there de-escalation of care discussed even if they declined (Discuss DNR or withdrawal of care, Hospice)? DNR status @ -No What co-morbidities impacted this encounter? (DM, HTN, Smoking, COPD, CAD, Cancer, CVA, ARF, Chemo, Hep., AIDS, mental health diagnosis, sleep apnea, morbid obesity)? @ -None Was patient admitted / discharged? Hospital course, mention meds given and route, prescriptions, significant lab abnormalities, going to OR and other pertinent info. @ -Patient was transferred to [facility] emergency department. Excepting physician is Dr. Figueroa. Please see above for emergency Department course. Undiagnosed new problem with uncertain prognosis? @ -Yes Drug Therapy requiring intensive monitoring for toxicity (Heparin, Nitro, Insulin, Cardizem)? @ -No Were any procedures done? @ -No Diagnosis/symptom? @ -Postop complication, concern for dehiscence of surgical anastomosis versus infection Acute, or Chronic, or Acute on Chronic? @ -Acute Uncomplicated (without systemic symptoms) or Complicated (systemic symptoms)? @ -Complicated Side effects of treatment? @ -No Exacerbation, Progression, or Severe Exacerbation? @ -No Poses a threat to life or bodily function? How? (Chest pain, [place], [place], pneumonia, PE, COPD, DKA, ARF, appy, cholecystitis, CVA, Diverticulitis, Homicidal, Suicidal, threat to staff... and all critical care pts) @ -Yes, if untreated can result in significant morbidity and mortality. Diagnosis/symptom? @ -Dehydration Acute, or Chronic, or Acute on Chronic? @ -Acute Uncomplicated (without systemic symptoms) or Complicated (systemic symptoms)? @ -Complicated Side effects of treatment? @ -none Exacerbation, Progression, or Severe Exacerbation] @ -no Poses a threat to life or bodily function? @ -Yes, if untreated can result in significant morbidity and mortality. Diagnosis/symptom? @ -Left foot pain, suspect muscular tendon pain Acute, or Chronic, or Acute on Chronic? @ -Acute Uncomplicated (without systemic symptoms) or Complicated (systemic symptoms)? @ -Uncomplicated Side effects of treatment? @ -none Exacerbation, Progression, or Severe Exacerbation] @ -no Poses a threat to life or bodily function? @ -no Diagnosis/symptom? @ -Sinus tachycardia Acute, or Chronic, or Acute on Chronic? @ -Chronic Uncomplicated (without systemic symptoms) or Complicated (systemic symptoms)? @ -Uncomfortable Side effects of treatment? @ -none Exacerbation, Progression, or Severe Exacerbation] @ -no Poses a threat to life or bodily function? @ -no - Lab Data Result diagrams: 07/14/22 11:03 07/14/22 10:39 Lab Results 07/14/22 07/14/22 07/14/22 Range/Units 10:16 10:16 10:16 WBC (3.8-10.6) k/uL RBC (4.30-5.90) m/uL Hgb (13.0-17.5) gm/dL Hct (39.0-53.0) % MCV (80.0-100.0) fL MCH (25.0-35.0) pg MCHC (31.0-37.0) g/dL RDW (11.5-15.5) % Plt Count (150-450) k/uL MPV Neutrophils % % Lymphocytes % % Monocytes % % Eosinophils % % Basophils % % Neutrophils # (1.3-7.7) k/uL Lymphocytes # (1.0-4.8) k/uL Monocytes # (0-1.0) k/uL Eosinophils # (0-0.7) k/uL Basophils # (0-0.2) k/uL PT 12.6 H (9.0-12.0) sec INR 1.2 H (<1.2) APTT 26.9 (22.0-30.0) sec D-Dimer 0.86 H (<0.60) mg/L FEU Sodium (137-145) mmol/L Potassium (3.5-5.1) mmol/L Chloride (98-107) mmol/L Carbon Dioxide (22-30) mmol/L Anion Gap mmol/L BUN (9-20) mg/dL Creatinine (0.66-1.25) mg/dL Est GFR (CKD-EPI)AfAm (>60 ml/min/1.73 sqM) Est GFR (CKD-EPI)NonAf (>60 ml/min/1.73 sqM) Glucose (74-99) mg/dL POC Glucose (mg/dL) (70-110) mg/dL POC Glu Vice President Education ID Plasma Lactic Acid Adrian 1.2 (0.7-2.0) mmol/L Calcium (8.4-10.2) mg/dL Total Bilirubin (0.2-1.3) mg/dL AST (17-59) U/L ALT (4-49) U/L Alkaline Phosphatase (38-126) U/L Total Protein (6.3-8.2) g/dL Albumin (3.5-5.0) g/dL Amylase (30-110) U/L Lipase (23-300) U/L Urine Color Dark Yellow Urine Appearance Clear (Clear) Urine pH 6.0 (5.0-8.0) Ur Specific [place] 1.027 (1.001-1.035) Urine Protein 2+ H (Negative) Urine Glucose (UA) Negative (Negative) Urine Ketones 4+ H (Negative) Urine Blood Negative (Negative) Urine Nitrite Negative (Negative) Urine Bilirubin 1+ H (Negative) Urine Urobilinogen 12.0 (<2.0) mg/dL Ur Leukocyte Esterase Negative (Negative) Urine RBC 1 (0-5) /hpf Urine WBC 2 (0-5) /hpf Ur Squamous Epith Cells <1 (0-4) /hpf Hyaline Casts 61 H (0-2) /lpf Urine Mucus Many H (None) /hpf Acetone, Qual (Negative) Coronavirus (PCR) (Not Detectd) 07/14/22 07/14/22 07/14/22 Range/Units 10:24 10:39 11:03 WBC 5.0 (3.8-10.6) k/uL RBC 4.72 (4.30-5.90) m/uL Hgb 14.2 (13.0-17.5) gm/dL Hct 41.2 (39.0-53.0) % MCV 87.3 (80.0-100.0) fL MCH 30.0 (25.0-35.0) pg MCHC 34.4 (31.0-37.0) g/dL RDW 13.8 (11.5-15.5) % Plt Count 124 L (150-450) k/uL MPV 10.1 Neutrophils % 65 % Lymphocytes % 21 % Monocytes % 11 % Eosinophils % 1 % Basophils % 0 % Neutrophils # 3.3 (1.3-7.7) k/uL Lymphocytes # 1.0 (1.0-4.8) k/uL Monocytes # 0.6 (0-1.0) k/uL Eosinophils # 0.0 (0-0.7) k/uL Basophils # 0.0 (0-0.2) k/uL PT (9.0-12.0) sec INR (<1.2) APTT (22.0-30.0) sec D-Dimer (<0.60) mg/L FEU Sodium 139 (137-145) mmol/L Potassium 3.7 (3.5-5.1) mmol/L Chloride 107 (98-107) mmol/L Carbon Dioxide 18 L (22-30) mmol/L Anion Gap 14 mmol/L BUN 6 L (9-20) mg/dL Creatinine 0.57 L (0.66-1.25) mg/dL Est GFR (CKD-EPI)AfAm >90 (>60 ml/min/1.73 sqM) Est GFR (CKD-EPI)NonAf >90 (>60 ml/min/1.73 sqM) Glucose 180 H (74-99) mg/dL POC Glucose (mg/dL) 192 H (70-110) mg/dL POC Glu Vice President Education ID Don Blancas Plasma Lactic Acid Adrian (0.7-2.0) mmol/L Calcium 8.3 L (8.4-10.2) mg/dL Total Bilirubin 1.3 (0.2-1.3) mg/dL AST 28 (17-59) U/L ALT 30 (4-49) U/L Alkaline Phosphatase 66 (38-126) U/L Total Protein 6.5 (6.3-8.2) g/dL Albumin 3.6 (3.5-5.0) g/dL Amylase 47 (30-110) U/L Lipase 147 (23-300) U/L Urine Color Urine Appearance (Clear) Urine pH (5.0-8.0) Ur Specific [place] (1.001-1.035) Urine Protein (Negative) Urine Glucose (UA) (Negative) Urine Ketones (Negative) Urine Blood (Negative) Urine Nitrite (Negative) Urine Bilirubin (Negative) Urine Urobilinogen (<2.0) mg/dL Ur Leukocyte Esterase (Negative) Urine RBC (0-5) /hpf Urine WBC (0-5) /hpf Ur Squamous Epith Cells (0-4) /hpf Hyaline Casts (0-2) /lpf Urine Mucus (None) /hpf Acetone, Qual Positive (Negative) Coronavirus (PCR) (Not Detectd) 07/14/22 Range/Units 13:07 WBC (3.8-10.6) k/uL RBC (4.30-5.90) m/uL Hgb (13.0-17.5) gm/dL Hct (39.0-53.0) % MCV (80.0-100.0) fL MCH (25.0-35.0) pg MCHC (31.0-37.0) g/dL RDW (11.5-15.5) % Plt Count (150-450) k/uL MPV Neutrophils % % Lymphocytes % % Monocytes % % Eosinophils % % Basophils % % Neutrophils # (1.3-7.7) k/uL Lymphocytes # (1.0-4.8) k/uL Monocytes # (0-1.0) k/uL Eosinophils # (0-0.7) k/uL Basophils # (0-0.2) k/uL PT (9.0-12.0) sec INR (<1.2) APTT (22.0-30.0) sec D-Dimer (<0.60) mg/L FEU Sodium (137-145) mmol/L Potassium (3.5-5.1) mmol/L Chloride (98-107) mmol/L Carbon Dioxide (22-30) mmol/L Anion Gap mmol/L BUN (9-20) mg/dL Creatinine (0.66-1.25) mg/dL Est GFR (CKD-EPI)AfAm (>60 ml/min/1.73 sqM) Est GFR (CKD-EPI)NonAf (>60 ml/min/1.73 sqM) Glucose (74-99) mg/dL POC Glucose (mg/dL) (70-110) mg/dL POC Glu Vice President Education ID Plasma Lactic Acid Adrian (0.7-2.0) mmol/L Calcium (8.4-10.2) mg/dL Total Bilirubin (0.2-1.3) mg/dL AST (17-59) U/L ALT (4-49) U/L Alkaline Phosphatase (38-126) U/L Total Protein (6.3-8.2) g/dL Albumin (3.5-5.0) g/dL Amylase (30-110) U/L Lipase (23-300) U/L Urine Color Urine Appearance (Clear) Urine pH (5.0-8.0) Ur Specific [place] (1.001-1.035) Urine Protein (Negative) Urine Glucose (UA) (Negative) Urine Ketones (Negative) Urine Blood (Negative) Urine Nitrite (Negative) Urine Bilirubin (Negative) Urine Urobilinogen (<2.0) mg/dL Ur Leukocyte Esterase (Negative) Urine RBC (0-5) /hpf Urine WBC (0-5) /hpf Ur Squamous Epith Cells (0-4) /hpf Hyaline Casts (0-2) /lpf Urine Mucus (None) /hpf Acetone, Qual (Negative) Coronavirus (PCR) Not Detected (Not Detectd) - EKG Data -: EKG Interpreted by Me EKG Comments: 12-lead Electrocardiogram Interpretation Note EKG was reviewed and interpreted by myself. 12-lead ECG performed at 0956 is interpreted by me as revealing sinus tachycardia at a rate of 121 beats per minute. [place] is normal. RI interval is 136 seconds, QRS duration is 82 ms, QTc is 378 ms.. There were no acute ST or T wave abnormalities to suggest myocardial ischemia or injury. There are chronic T wave inversions in lead III. R wave progression across the precordium was satisfactory. By my interpretation this EKG is non-diagnostic for acute ischemia. When compared with Prior EKG from May 2022, as well as to 2020, patient is chronically in sinus tachycardia with chronic T wave inversions in lead III. No acute changes. Critical Care Time Critical Care Time: Yes Total Critical Care Time: 35 Critical Care Time: Upon my evaluation, this patient had a high probability of imminent or life- threatening deterioration due to postop infection versus complication, transfer, dehydration, which required my direct attention, intervention, and personal management. I have personally provided 35 minutes of critical care time exclusive of time spent on separately billable procedures. Time includes review of laboratory data, radiology results, discussion with consultants, and monitoring for potential decompensation. Interventions were performed as documented in my note. Disposition Clinical Impression: Dehydration, Post-operative complication, Sinus tachycardia, Left foot pain, Nausea and vomiting Disposition: OTHER INSTITUTION NOT DEFINED Condition: Serious Referrals: Primo Forman DO [Primary Care Provider] - 1-2 days Time of Disposition: 15:40 - Out of Hospital Transfer - Req. Specs Out of Hospital Transfer - Requested Specifics: Other Emergency Center (Transfer for [facility] for escalation of care.)
[2022-07-14 10:26] LABS: Glucose,Whole Blood 192 mg/dL (70-110)
[2022-07-14 10:47] LABS: INR 1.2 (<1.2); Partial Thromboplastin Time 26.9 sec (22.0-30.0); Prothrombin Time 12.6 sec (9.0-12.0)
--- NOTE | 2022-07-14 10:48 | XR ---
EXAMINATION TYPE: XR chest 1V portable DATE OF EXAM: 07/14/2022 10:43 AM COMPARISON: Chest radiographs from 05/15/2018 TECHNIQUE: XR chest 1V portable Portable AP radiograph of the chest. CLINICAL INDICATION:Male, 31 years old with history of abdominal pain; FINDINGS: Lungs/Pleura: Low lung volumes are present. There is no evidence of pleural effusion, focal consolida tion, or pneumothorax. Pulmonary vascularity: Unremarkable. Heart/mediastinum: Cardiomediastinal silhouette is unremarkable. Musculoskeletal: No acute osseous pathology. IMPRESSION: No acute cardiopulmonary disease/process.
--- NOTE | 2022-07-14 10:49 | XR ---
EXAMINATION TYPE: XR foot complete LT DATE OF EXAM: 07/14/2022 10:44 AM INDICATION: Patient age:Male; 31 years old; Reason for study: pain; COMPARISON: None TECHNIQUE: The left foot was examined in the AP, oblique, and lateral projections. FINDINGS: No evidence of any acute osseous pathology. No evidence of soft tissue swelling. Joints are preserve d. No findings to suggest gout. Calcaneal plantar spurring is minimal with Achilles calcaneal entheso phyte. Flattening of the arch of the foot. IMPRESSION: 1. No evidence of acute fracture. 2. No evidence for gout. 3. Pes planus.
[2022-07-14 11:09] LABS: ALT 30 U/L (4-49); AST 28 U/L (17-59); African American GFR (CKD) >90 (>60 ml/min/1.73 sqM); Albumin 3.6 g/dL (3.5-5.0); Alkaline Phosphatase 66 U/L (38-126); Amylase 47 U/L (30-110); Anion Gap 14 mmol/L; Blood Urea Nitrogen 6 mg/dL (9-20); Calcium 8.3 mg/dL (8.4-10.2); Carbon Dioxide 18 mmol/L (22-30); Chloride 107 mmol/L (98-107); Glucose 180 mg/dL (74-99); Lipase 147 U/L (23-300); Non-African American GFR(CKD) >90 (>60 ml/min/1.73 sqM); Potassium 3.7 mmol/L (3.5-5.1); Sodium 139 mmol/L (137-145); Total Bilirubin 1.3 mg/dL (0.2-1.3); Total Protein 6.5 g/dL (6.3-8.2)
[2022-07-14 11:10] LABS: Basophils % (A) 0 %; Eosinophils % (A) 1 %; HCT 41.2 % (39.0-53.0); HGB 14.2 gm/dL (13.0-17.5); Lymphocytes % (A) 21 %; MCHC 34.4 g/dL (31.0-37.0); MCV 87.3 fL (80.0-100.0); Mean Platelet Volume 10.1; Monocytes # (A) 0.6 k/uL (0-1.0); Monocytes % (A) 11 %; Neutrophils # (A) 3.3 k/uL (1.3-7.7); Neutrophils % (A) 65 %; Platelet Count 124 k/uL (150-450); RBC 4.72 m/uL (4.30-5.90); RDW 13.8 % (11.5-15.5)
[2022-07-14] MEDS ORDERED: SODIUM CHLORIDE 0.9% 1,000 ML IV STA ×2 (11:42→12:52)
[2022-07-14 11:52] VITALS: TEMP 98.2
[2022-07-14 12:07] LABS: Appearance,Urine Clear (Clear); Bilirubin,Urine 1+ (Negative); Blood,Urine Negative (Negative); Color,Urine Dark Yellow; Glucose,Urine (UA) Negative (Negative); Hyaline Casts,Urine 61 /lpf (0-2); Ketones,Urine 4+ (Negative); Leukocyte Esterase,Urine Negative (Negative); Mucus,Urine Many /hpf; Nitrite,Urine Negative (Negative); Protein,Urine 2+ (Negative); RBC,Urine 1 /hpf (0-5); Specific Gravity,Urine 1.027 (1.001-1.035); Squamous Epithelial Cell,Urine <1 /hpf (0-4); WBC,Urine 2 /hpf (0-5)
--- NOTE | 2022-07-14 12:12 | CT ---
EXAMINATION TYPE: CT chest angio for PE CT DLP: 1035.1 mGycm, Automated exposure control for dose reduction was used. DATE OF EXAM: 07/14/2022 11:55 AM COMPARISON: Chest radiograph same day CLINICAL INDICATION:Male, 31 years old with history of elevated dimer, eval for PE; pe TECHNIQUE/CONTRAST: CTA scan of the thorax is performed with IV Contrast, patient injected with 100 mL of Isovue 370, pul monary embolism protocol. MIP images are created and reviewed these [facility] FINDINGS: Pulmonary Artery: There is no evidence for a central filling defect within the pulmonary vasculature to suggest acute pulmonary embolism. Limited evaluation of the segmental and subsegmental branches se condary to bolus timing. The pulmonary artery is of normal size. Lungs/Pleura: No evidence of focal consolidation, pleural effusion or pneumothorax. Airway: Large airways are patent. Heart: Heart is within normal limits for size. Vasculature: No evidence of aortic aneurysm. Mediastinum: No gross evidence of adenopathy. Musculoskeletal: No acute osseous abnormalities Soft Tissues: Increased density posterior to the nipples bilaterally consistent with gynecomastia. Lower neck: No significant findings. Upper Abdomen: No significant findings. IMPRESSION: 1. No evidence of central pulmonary embolism. Limited evaluation of the segmental and subsegmental b ranches secondary to poor bolus timing. 2. No acute process
--- NOTE | 2022-07-14 12:20 | CT ---
EXAMINATION TYPE: CT abdomen pelvis w con CT DLP: 3567 mGycm, Automated exposure control for dose reduction was used. DATE OF EXAM: 07/14/2022 11:55 AM COMPARISON: None CLINICAL INDICATION:Male, 31 years old with history of abd pain, acute, nonlocalized; upper abd pain TECHNIQUE: Axial CT of the abdomen and pelvis. Sagittal and coronal reformats were created on a [employer] workstation. Contrast used:100 mL of Isovue 370 with IV Contrast, Oral contrast used: without Oral Contrast FINDINGS: LOWER CHEST: Unremarkable ABDOMEN LIVER: Unremarkable GALLBLADDER AND BILE DUCTS: Unremarkable. PANCREAS: Unremarkable. SPLEEN: Unremarkable. ADRENAL GLANDS: Unremarkable. KIDNEYS AND URETERS: No evidence of hydronephrosis or renal calculus. The ureters are unremarkable. PELVIS BLADDER: Unremarkable REPRODUCTIVE: Unremarkable. ABDOMEN & PELVIS STOMACH AND BOWEL: No evidence of bowel obstruction. Postsurgical changes to the bowel consistent wit h gastric bypass. There is a suspicious area in the left upper quadrant that is felt to be outside th e bowel measuring up to 3.2 x 3.3 cm this is immediately adjacent to small bowel loops with suture pr esent. PERITONEUM/RETROPERITONEUM: No evidence of pneumoperitoneum or free fluid. . VASCULATURE: No evidence of aortic aneurysm. MUSCULOSKELETAL: No acute osseous abnormalities LYMPH NODES: No gross evidence for lymphadenopathy. SOFT TISSUE/ABDOMINAL WALL: Port site surgical changes are noted in the anterior abdominal wall. IMPRESSION: Left upper quadrant fat stranding surrounding a lower density area immediately adjacent to small cruzito l loops with surgical changes. Findings could represent dehiscent at an anastomotic site. Further bismark luation is recommended. No free air in the abdomen. Phlegmonous change with possible early abscess fo rmation not entirely excluded. Surgical consultation recommended.
[2022-07-14] MEDS ORDERED: LEVOFLOXACIN 750MG-D5W PMX 750 MG in DEXTROSE/WATER 1 150ML.BAG IVPB ONE (14:00)
[2022-07-14] MEDS ORDERED: metroNIDAZOLE-NS PMX 500 MG in SALINE 1 100ML.BAG IVPB SCH (14:00)
[2022-07-14 16:41] VITALS: BP 135/92; PULSE 111; RESP 16
[2022-07-15] MEDS ORDERED: LEVOFLOXACIN 750MG-D5W PMX 750 MG in DEXTROSE/WATER 1 150ML.BAG IVPB SCH (16:00)
== END 2022-07-14 16:24 | disposition other institution (70) ==
LOC: EC 09:28
DX: T81.9XXA Unspecified complication of procedure, initial encounter (principal); E86.0 Dehydration; R00.0 Tachycardia, unspecified; M79.605 Pain in left leg; R11.2 Nausea with vomiting, unspecified; I10 Essential (primary) hypertension; E11.9 Type 2 diabetes mellitus without complications; J45.909 Unspecified asthma, uncomplicated; Z79.4 Long term (current) use of insulin; Z88.0 Allergy status to penicillin; Z20.822 Contact with and (suspected) exposure to COVID-19
CPT/HCPCS: 99291; 96365; 96366; 96376; 96375 ×4; 96361 ×5; 36415; 93005; 85379; 80053; 82150; 82009; 83605; 83690; 85025; 85610; 85730; 81001; 87040; 87635; 73630; 71045; 71275; 74177; J2270; J2405; J1956; J1885; C9113; Q9967

== ENCOUNTER → 2022-07-22 | Outpatient (CLI) | payer OTHER ==
[2022-07-22 11:53] VITALS: BP 135/97; PULSE 117; RESP 16; TEMP 97.9
[2022-07-22] MEDS: SODIUM CHLORIDE 0.9% 1,000 ML IV SCH ×2 (12:00→13:02)
== END ==
LOC: PROCWHC3 11:41
PROVIDERS: ATTEND Surgery Plastic and Reconstructive Surgery
DX: E86.0 Dehydration (principal); Z88.0 Allergy status to penicillin
CPT/HCPCS: 96360; 96361

== ENCOUNTER → 2022-07-22 | Outpatient (CLI) | payer OTHER ==
[2022-07-22 12:06] VITALS: BP 135/97; PULSE 108; TEMP 97.9; BMI 51.3
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
[2022-07-22 15:52] LABS: INR 1.2 (<1.2); Partial Thromboplastin Time 24.3 sec (22.0-30.0); Prothrombin Time 12.2 sec (9.0-12.0)
[2022-07-22 19:08] LABS: HCT 43.9 % (39.6-50.0); HGB 14.9 g/dL (13.0-17.0); MCHC 33.9 g/dL (32.0-37.0); MCV 85.6 fL (80.0-97.0); Mean Platelet Volume 11.3 fL (9.5-12.2); NRBC Per 100 WBC 0 /100 WBCS (0.0-0.0); Platelet Count 209 X 10*3/uL (140-440); RBC 5.13 X 10*6/uL (4.40-5.60); RDW 12.9 % (11.5-14.5); WBC 3.69 X 10*3/uL (4.50-10.00)
[2022-07-23 11:15] LABS: % Iron Saturation 22.98 (15.00-50.00); ALT 82 U/L (10-49); AST 104 U/L (14-35); African American GFR (CKD) 158.5 (60.0-200.0); Albumin 3.9 g/dL (3.8-4.9); Albumin/Globulin Ratio 1.42 (1.60-3.17); Alkaline Phosphatase 58 U/L (41-126); BUN/Creat Ratio 11.28 Ratio (12.00-20.00); Blood Urea Nitrogen 6.3 mg/dL (9.0-27.0); Calcium 8.8 mg/dL (8.7-10.3); Carbon Dioxide 22.7 mmol/L (20.0-27.5); Chloride 100 mmol/L (96-109); Globulin 2.7 g/dL (1.6-3.3); Glucose 113 mg/dL (70-110); Iron 49 ug/dL (65-175); Magnesium 1.4 mg/dL (1.5-2.4); Non-African American GFR(CKD) 136.8 (60.0-200.0); Phosphorus 3.2 mg/dL (2.4-5.1); Potassium 3.5 mmol/L (3.5-5.5); Sodium 141 mmol/L (135-145); Total Iron Binding Capacity 213 ug/dL (228-460); Total Protein 6.6 g/dL (6.2-8.2)
[2022-07-23 11:22] LABS: Chol/HDL Ratio 4.51 Ratio; LDL Cholesterol,Calculated 69.8 mg/dL (0.0-131.0); Prealbumin 18.8 mg/dL (18.0-42.0)
== END | disposition home or self-care (01) ==
LOC: BARWHC3 11:42
PROVIDERS: ATTEND Surgery Plastic and Reconstructive Surgery
DX: I47.1 Supraventricular tachycardia (principal); E66.01 Morbid (severe) obesity due to excess calories; Z88.0 Allergy status to penicillin; Z68.43 Body mass index [BMI] 50.0-59.9, adult; E55.9 Vitamin D deficiency, unspecified; K21.9 Gastro-esophageal reflux disease without esophagitis; Z98.890 Other specified postprocedural states; I11.9 Hypertensive heart disease without heart failure; D50.9 Iron deficiency anemia, unspecified; E11.65 Type 2 diabetes mellitus with hyperglycemia; N62 Hypertrophy of breast; K29.50 Unspecified chronic gastritis without bleeding; E50.9 Vitamin A deficiency, unspecified; E61.0 Copper deficiency; E78.5 Hyperlipidemia, unspecified; Z86.39 Personal history of other endocrine, nutritional and metabolic disease; M10.9 Gout, unspecified; Z79.4 Long term (current) use of insulin
CPT/HCPCS: 84255; 84134; 84425; 80061; 80053; 82607; 82728; 82525; 82746; 83540; 83550; 83735; 84100; 84443; 84590; 84630; 85027; 85610; 85730; 82306; 83970; 83036; G0463; 99211

== ENCOUNTER 2022-07-28 23:38 | Emergency (ER) | payer OTHER ==
[2022-07-28 23:51] VITALS: BP 144/68; PULSE 71; RESP 15; TEMP 98.2
[2022-07-28] MEDS ORDERED: ONDANSETRON 4 MG/2 ML VIAL IVP STA (23:55)
[2022-07-28] MEDS ORDERED: SODIUM CHLORIDE 0.9% 1,000 ML IV STA (23:55)
--- NOTE | 2022-07-28 23:59 | ED ---
General Adult HPI - General Chief complaint: Nausea/Vomiting/Diarrhea Stated complaint: Weakess Time Seen by Provider: 07/28/22 23:52 Source: patient, EMS Mode of arrival: EMS Limitations: no limitations - History of Present Illness Initial comments: Patient presents to the ED by ambulance for evaluation. Patient states that he had a small amount of food to eat this evening, then felt like he needed to have a bowel movement, so he went to the bathroom. Patient states that he then became dizzy and nauseated, and he vomited once. Patient also states that he had a loose bowel movement. Patient states that he now continues to feel nauseated and generally weak. Patient states that he has had similar episodes intermittently ever since having gastric bypass surgery last month. Patient denies fever or chills, headache, focal neuro deficit, visual changes, chest pain or pressure, dyspnea, palpitations, syncope, abdominal pain, back or flank pain, constipation, bloody or melanotic stool, hematemesis, dysuria/hematuria/urinary frequency/urinary symptoms, or any other symptoms or complaints. - Related Data Home Medications Medication Instructions Recorded Confirmed INSULIN LISPRO (HumaLOG) [humaLOG] See Protocol SQ TID-W/MEALS 07/14/22 07/22/22 Insulin Glargine [Lantus Vial] 7 unit SQ HS 07/14/22 07/22/22 Previous Rx's Medication Instructions Recorded Acetaminophen Tab [Tylenol] 1,000 mg PO Q6HR PRN #30 tablet 06/19/22 Ondansetron Odt [Zofran ODT] 4 mg PO Q8HR PRN #9 tab 06/19/22 bisacodyL [Dulcolax] 5 mg PO DAILY PRN #10 tab MDD 15mg 06/19/22 Omeprazole [PriLOSEC] 40 mg PO BID #14 cap 07/22/22 Sucralfate [Carafate] 1 gm PO BID #30 tablet 07/22/22 Allergies Allergy/AdvReac Type Severity Reaction Status Date / Time Penicillins Allergy Rash/Hives, Verified 07/28/22 23:48 Difficulty breathing Review of Systems ROS Statement: Those systems with pertinent positive or pertinent negative responses have been documented in the HPI. ROS Other: All systems not noted in ROS Statement are negative. Past Medical History Past Medical History: Asthma, Chest Pain / Angina, Diabetes Mellitus, GERD/Reflu x, Hypertension Additional Past Medical History / Comment(s): "high heart rate" - February 2020,. gout History of Any Multi-Drug Resistant Organisms: None Reported Past Surgical History: No Surgical Hx Reported, Bariatric Surgery Additional Past Surgical History / Comment(s): lip surgery from dog bite as a child, Gastric Bypass 06/17/22. cardioversion feb 2020 Past Anesthesia/Blood Transfusion Reactions: No Reported Reaction Past Psychological History: No Psychological Hx Reported Smoking Status: Never smoker Past Alcohol Use History: None Reported Past Drug Use History: None Reported - Past Family History Mother Family Medical History: No Reported History General Exam Limitations: no limitations General appearance: alert, in no apparent distress Head exam: Present: atraumatic, normocephalic Eye exam: Present: normal appearance, PERRL, EOMI. Absent: nystagmus ENT exam: Present: mucous membranes moist Respiratory exam: Present: normal lung sounds bilaterally. Absent: respiratory distress, wheezes, rales, rhonchi, stridor Cardiovascular Exam: Present: regular rate, normal rhythm, normal heart sounds, other (Normal radial pulses bilaterally) GI/Abdominal exam: Present: soft, normal bowel sounds, other (Obese abdomen). Absent: distended, tenderness, guarding Extremities exam: Absent: pedal edema Back exam: Absent: CVA tenderness (R), CVA tenderness (L) Neurological exam: Present: alert, oriented X3, CN II-XII intact. Absent: motor sensory deficit Psychiatric exam: Present: normal affect, normal mood Skin exam: Present: warm, dry, intact, normal color Course Vital Signs 07/28/22 23:48 Temperature 98.2 F Pulse Rate 71 Respiratory 15 Rate Blood Pressure 144/68 O2 Sat by Pulse 100 Oximetry - Reevaluation(s) Reevaluation #1: 07/29/22 00:47 Patient sates that his nausea has improved with ED treatment. Patient has not had any vomiting or diarrhea while in the ED. Patient remains alert and breathing comfortably. Patient continues to have a soft and completely nontender abdominal exam. Patient and significant other are aware the patient's test results, and patient feels comfortable going home at this time. Will discharge patient home with a starter pack of ODT Zofran. Patient was counseled about nausea/vomiting and weakness/dizziness. Patient was clearly explained return and follow-up instructions, and he was instructed to follow up closely with his primary care provider. Patient feels comfortable with this plan. Medical Decision Making - Medical Decision Making Was pt. sent in by a medical professional or institution (, SHIVANI, FOOD SERVICE SUPERVISOR, urgent care, hospital, or long-term...) When possible be specific @ -[No] Did you speak to anyone other than the patient for history (EMS, parent, family, police, friend...)? What history was obtained from this source @ -[No] Did you review nursing and triage notes (agree or disagree)? Why? @ -[I reviewed and agree with nursing and triage notes] Were old charts reviewed (outside hosp., previous admission, EMS record, old EKG, old radiological studies, urgent care reports/EKG's, long-term records)? Report findings @ -[No old charts were reviewed] Differential Diagnosis (chest pain, altered mental status, abdominal pain women, abdominal pain men, vaginal bleeding, weakness, fever, dyspnea, syncope, headache, dizziness, GI bleed, back pain, seizure, CVA, palpatations, mental health)? @ -Nausea, vomiting, diarrhea, viral illness, gastritis, food poisoning, gastroenteritis, GERD, pancreatitis, hepatitis, colitis, enteritis, dizziness, anemia, hypoglycemia, hyperglycemia, dehydration, electrolyte abnormality, DKA, medication reaction EKG interpreted by me (3pts min.). @ -None done X-rays interpreted by me (1pt min.). @ -[None done] CT interpreted by me (1pt min.). @ -[None done] U/S interpreted by me (1pt. min.). @ -[None done] What testing was considered but not performed or refused? (CT, X-rays, U/S, labs)? Why? @ -[None] What meds were considered but not given or refused? Why? @ -[None] Did you discuss the management of the patient with other professionals (professionals i.e. , SHIVANI, FOOD SERVICE SUPERVISOR, lab, RT, psych nurse, social services, aquatic facility manager, teacher, artillery officer, residential case manager)? Give summary @ -[No] Was smoking cessation discussed for >3mins.? @ -[No] Was critical care preformed (if so, how long)? @ -[No] Were there social determinants of health that impacted care today? How? (Homelessness, low income, unemployed, alcoholism, drug addiction, transportat ion, low edu. Level, literacy, decrease access to med. care, fci, rehab)? @ -[No] Was there de-escalation of care discussed even if they declined (Discuss DNR or withdrawal of care, Hospice)? DNR status @ -[No] What co-morbidities impacted this encounter? (DM, HTN, Smoking, COPD, CAD, Cancer, CVA, ARF, Chemo, Hep., AIDS, mental health diagnosis, sleep apnea, morbid obesity)? @ -Obesity status post gastric bypass surgery Was patient admitted / discharged? Hospital course, mention meds given and route, prescriptions, significant lab abnormalities, going to OR and other pertinent info. @ -Patient has a soft and nontender abdominal exam. Patient denies having any abdominal pain. Patient is afebrile and without leukocytosis. Patient's labs are fairly unremarkable. I do not suspect an emergent medical or surgical condition at this time. Will discharge patient home with his family at this time. Undiagnosed new problem with uncertain prognosis? @ -[No] Drug Therapy requiring intensive monitoring for toxicity (Heparin, Nitro, Insulin, Cardizem)? @ -[No] Were any procedures done? @ -[No] Diagnosis/symptom? @ -Nausea and vomiting Acute, or Chronic, or Acute on Chronic? @ -Acute Uncomplicated (without systemic symptoms) or Complicated (systemic symptoms)? @ -[default] Side effects of treatment? @ -[No] Exacerbation, Progression, or Severe Exacerbation? @ -Exacerbation Poses a threat to life or bodily function? How? (Chest pain, [place], [place], pneumonia, PE, COPD, DKA, ARF, appy, cholecystitis, CVA, Diverticulitis, Homicidal, Suici deny, threat to staff... and all critical care pts) @ -[No] Diagnosis/symptom? @ -Generalized weakness Acute, or Chronic, or Acute on Chronic? @ -Acute Uncomplicated (without systemic symptoms) or Complicated (systemic symptoms)? @ -[default] Side effects of treatment? @ -[none] Exacerbation, Progression, or Severe Exacerbation] @ -[no] Poses a threat to life or bodily function? @ -[no] - Lab Data Result diagrams: 07/28/22 23:57 07/28/22 23:57 Lab Results 07/28/22 07/28/22 Range/Units 23:57 23:57 WBC 6.8 (3.8-10.6) k/uL RBC 5.17 (4.30-5.90) m/uL Hgb 15.2 (13.0-17.5) gm/dL Hct 44.2 (39.0-53.0) % MCV 85.4 (80.0-100.0) fL MCH 29.4 (25.0-35.0) pg MCHC 34.4 (31.0-37.0) g/dL RDW 13.5 (11.5-15.5) % Plt Count 197 D (150-450) k/uL MPV 9.5 Neutrophils % 69 % Lymphocytes % 21 % Monocytes % 7 % Eosinophils % 1 % Basophils % 0 % Neutrophils # 4.7 (1.3-7.7) k/uL Lymphocytes # 1.5 (1.0-4.8) k/uL Monocytes # 0.5 (0-1.0) k/uL Eosinophils # 0.1 (0-0.7) k/uL Basophils # 0.0 (0-0.2) k/uL Sodium 140 (137-145) mmol/L Potassium 3.5 (3.5-5.1) mmol/L Chloride 102 (98-107) mmol/L Carbon Dioxide 22 (22-30) mmol/L Anion Gap 16 mmol/L BUN 7 L (9-20) mg/dL Creatinine 0.54 L (0.66-1.25) mg/dL Est GFR (CKD-EPI)AfAm >90 (>60 ml/min/1.73 sqM) Est GFR (CKD-EPI)NonAf >90 (>60 ml/min/1.73 sqM) Glucose 160 H (74-99) mg/dL Calcium 8.9 (8.4-10.2) mg/dL Total Bilirubin 1.4 H (0.2-1.3) mg/dL AST 40 (17-59) U/L ALT 60 H (4-49) U/L Alkaline Phosphatase 62 (38-126) U/L Total Protein 6.9 (6.3-8.2) g/dL Albumin 4.0 (3.5-5.0) g/dL Lipase 206 (23-300) U/L Disposition Clinical Impression: Weakness, Nausea and vomiting Disposition: HOME SELF-CARE Condition: Stable Instructions (If sedation given, give patient instructions): Acute Nausea and Vomiting (ED), Acute Diarrhea (ED), Weakness (ED), Dizziness (ED) Additional Instructions: Return to the ER immediately should you develop persistent vomiting or diarrhea, a fever, any significant pain, feeling dizzy or faint, shortness of breath, or new or worsening symptoms. Follow up closely with your primary care provider. Is patient prescribed a controlled substance at d/c from ED?: No Referrals: Primo Forman DO [Primary Care Provider] - 1-2 days Time of Disposition: 00:54
[2022-07-29 00:06] LABS: Basophils % (A) 0 %; Eosinophils # (A) 0.1 k/uL (0-0.7); Eosinophils % (A) 1 %; HCT 44.2 % (39.0-53.0); HGB 15.2 gm/dL (13.0-17.5); Lymphocytes # (A) 1.5 k/uL (1.0-4.8); Lymphocytes % (A) 21 %; MCH 29.4 pg (25.0-35.0); MCHC 34.4 g/dL (31.0-37.0); MCV 85.4 fL (80.0-100.0); Mean Platelet Volume 9.5; Monocytes # (A) 0.5 k/uL (0-1.0); Monocytes % (A) 7 %; Neutrophils # (A) 4.7 k/uL (1.3-7.7); Neutrophils % (A) 69 %; Platelet Count 197 k/uL (150-450); RBC 5.17 m/uL (4.30-5.90); RDW 13.5 % (11.5-15.5); WBC 6.8 k/uL (3.8-10.6)
[2022-07-29 00:14] LABS: Chloride 102 mmol/L (98-107)
[2022-07-29 00:16] LABS: ALT 60 U/L (4-49); AST 40 U/L (17-59); African American GFR (CKD) >90 (>60 ml/min/1.73 sqM); Alkaline Phosphatase 62 U/L (38-126); Anion Gap 16 mmol/L; Blood Urea Nitrogen 7 mg/dL (9-20); Calcium 8.9 mg/dL (8.4-10.2); Carbon Dioxide 22 mmol/L (22-30); Glucose 160 mg/dL (74-99); Lipase 206 U/L (23-300); Non-African American GFR(CKD) >90 (>60 ml/min/1.73 sqM); Potassium 3.5 mmol/L (3.5-5.1); Sodium 140 mmol/L (137-145); Total Bilirubin 1.4 mg/dL (0.2-1.3); Total Protein 6.9 g/dL (6.3-8.2)
[2022-07-29] MEDS ORDERED: KETOROLAC 15 MG/ML 1 ML VIAL IVP STA (00:46)
[2022-07-29] MEDS ORDERED: ONDANSETRON 4 MG ODT STARTER PACK 2 TAB BTL PO STA (00:47)
== END 2022-07-29 01:05 | disposition home or self-care (01) ==
LOC: EC 23:38
DX: R53.1 Weakness (principal); R11.2 Nausea with vomiting, unspecified; I10 Essential (primary) hypertension; J44.9 Chronic obstructive pulmonary disease, unspecified; E11.9 Type 2 diabetes mellitus without complications; Z79.4 Long term (current) use of insulin; Z88.0 Allergy status to penicillin
CPT/HCPCS: 99285 ×2; 96374 ×2; 96361 ×2; 36415; 80053; 83690; 85025; J2405

== ENCOUNTER → 2022-07-31 | Outpatient (CLI) | payer OTHER ==
[~2022-07-31] MED LIST changes: +ONDANSETRON 4 MG/2 ML VIAL IVP STA; +SODIUM CHLORIDE 0.9% 1,000 ML IV ONE; -SODIUM CHLORIDE 0.9% 2,000 ML IV NR; -SODIUM CHLORIDE 0.9% 500 ML 500 ML in EMPTY BAG 1 BAG IV PRN
[2022-07-31] MEDS: SODIUM CHLORIDE 0.9% 1,000 ML IV ONE ×2 (14:30→15:20)
[2022-07-31 14:44] VITALS: TEMP 98
[2022-07-31 14:54] LABS: Basophils % (A) 0 %; Eosinophils % (A) 1 %; HCT 43.2 % (39.0-53.0); HGB 14.7 gm/dL (13.0-17.5); Lymphocytes # (A) 0.9 k/uL (1.0-4.8); Lymphocytes % (A) 17 %; MCH 29.2 pg (25.0-35.0); MCHC 34.1 g/dL (31.0-37.0); MCV 85.8 fL (80.0-100.0); Mean Platelet Volume 9.7; Monocytes # (A) 0.4 k/uL (0-1.0); Monocytes % (A) 8 %; Neutrophils # (A) 3.9 k/uL (1.3-7.7); Neutrophils % (A) 72 %; Platelet Count 168 k/uL (150-450); RBC 5.04 m/uL (4.30-5.90); RDW 13.9 % (11.5-15.5); WBC 5.5 k/uL (3.8-10.6)
[2022-07-31 15:07] LABS: ALT 32 U/L (4-49); AST 21 U/L (17-59); African American GFR (CKD) >90 (>60 ml/min/1.73 sqM); Albumin 3.7 g/dL (3.5-5.0); Alkaline Phosphatase 67 U/L (38-126); Anion Gap 16 mmol/L; Blood Urea Nitrogen 4 mg/dL (9-20); Calcium 9.1 mg/dL (8.4-10.2); Carbon Dioxide 18 mmol/L (22-30); Chloride 105 mmol/L (98-107); Glucose 192 mg/dL (74-99); Non-African American GFR(CKD) >90 (>60 ml/min/1.73 sqM); Potassium 3.6 mmol/L (3.5-5.1); Sodium 139 mmol/L (137-145); Total Bilirubin 1.6 mg/dL (0.2-1.3); Total Protein 6.8 g/dL (6.3-8.2)
[2022-07-31 15:10] VITALS: RESP 16
[2022-07-31 15:39] VITALS: BP 111/77; PULSE 99
== END ==
LOC: PROCWHC3 14:33
PROVIDERS: ATTEND Surgery Plastic and Reconstructive Surgery
DX: E86.0 Dehydration (principal); Z88.0 Allergy status to penicillin
CPT/HCPCS: 80053; 85025; 96360; 96361; 36415; J2405

== ENCOUNTER → 2022-07-31 | Outpatient (CLI) | payer OTHER ==
[2022-07-31 14:16] VITALS: BP 135/97; PULSE 108; RESP 12; TEMP 97.9; BMI 51.3
--- NOTE | 2022-07-31 14:32 | P.BASOAP ---
Subjective Progress Note Date: 07/31/22 He comes in intractable nausea and vomiting. He reports epigastric and periumbilical pain. Heart rate up to 120s. Recommend CT abdomen and pelvis and ultrasound. ER notified. Plan for admission with gallbladder address. May need EGD. Objective - Vital Signs Vital signs: Vital Signs Temp 97.9 F 07/31/22 14:09 Pulse 108 H 07/31/22 14:09 Resp 12 07/31/22 14:09 BP 135/97 07/31/22 14:09 Pulse Ox FiO2 Intake & Output 07/30/22 07/31/22 07/31/22 18:59 06:59 18:59 Weight 150.956 kg Assessment/Plan Plan: Date: 07/31/22 Initial Weight: 180.983 kg Initial BMI: 61.5 Current Weight: 150.956 kg Current BMI: 51.3 Type of Surgery: Total Volume in Band: Previous Volume: Volume Removed: Volume Added: Band Size:
== END ==
LOC: BARWHC3 13:42
PROVIDERS: ATTEND Surgery Plastic and Reconstructive Surgery
DX: E66.01 Morbid (severe) obesity due to excess calories (principal); Z68.43 Body mass index [BMI] 50.0-59.9, adult; Z88.0 Allergy status to penicillin
CPT/HCPCS: 99211

== ENCOUNTER 2022-09-05 00:49 | Inpatient (IN) | payer OTHER ==
[2022-09-05] MEDS ORDERED: SODIUM CHLORIDE 0.9% 1,000 ML IV STA ×2 (01:05→02:55)
[2022-09-05] MEDS ORDERED: ONDANSETRON 4 MG/2 ML VIAL IVP STA (01:07)
--- NOTE | 2022-09-05 01:09 | ED ---
Chest Pain HPI - General Chief Complaint: Chest Pain Stated Complaint: Chest Pain, Right Arm Pain Time Seen by Provider: 09/05/22 01:05 Source: patient Mode of arrival: wheelchair Limitations: no limitations - History of Present Illness Initial Comments: Patient is a 31-year-old male who presents to the emergency department with a chief complaint of chest pain. The pain started abruptly around 5:00 today. Patient appears to be in significant discomfort he states the pain is left-sided and shooting. It is worse with standing and sitting forward. Patient also has pain in his right arm, specifically his right elbow. He denies injury. Patient feels dizzy as if the room is spinning and he has nausea without any episodes of vomiting. He denies shortness of breath, diaphoresis. He also complains of blurry vision in both of his eyes. No head trauma. He has history of hypertension, diabetes, tachycardia. He does not take any rate controlling medication. States he has an appointment with a chief psychology next week for evaluation of tachycardia. No family history of cardiac disease. Denies tobacco use. He denies alcohol and other illicit drug use. Of note, patient has history of Lydia-en-Y in May 2022 and cholecystectomy last month. - Related Data Home Medications Medication Instructions Recorded Confirmed Insulin Glargine [Lantus Vial] 7 unit SQ HS 07/14/22 08/20/22 Previous Rx's Medication Instructions Recorded Diclofenac Sodium Gel [Voltaren 4 gm TOPICAL QID #100 gm 08/04/22 Gel] Acetaminophen Oral Susp [Tylenol] 650 mg PO Q4-6H PRN #480 ml 08/09/22 Simethicone 40 mg/0.6 ml Drops 40 mg PO PCHS PRN #30 ml 08/09/22 [Mylicon Drops] Sucralfate [Carafate] 1 gm PO BID #90 tablet 08/09/22 Scopolamine 1 mg/72 Hr Patch 1 patch TRANSDERM Q72H #4 patch 08/10/22 [TransDerm Scop] Allergies Allergy/AdvReac Type Severity Reaction Status Date / Time Penicillins Allergy Rash/Hives, Verified 09/05/22 00:56 Difficulty breathing Review of Systems ROS Statement: Those systems with pertinent positive or pertinent negative responses have been documented in the HPI. ROS Other: All systems not noted in ROS Statement are negative. Past Medical History Past Medical History: Asthma, Chest Pain / Angina, Diabetes Mellitus, GERD/Reflux, Hypertension Additional Past Medical History / Comment(s): "high heart rate" - February 2020,. gout. RECENT INPT FOR DEHYDRATION-07/31/22-08/09/22 History of Any Multi-Drug Resistant Organisms: None Reported Past Surgical History: Bariatric Surgery, Cholecystectomy Additional Past Surgical History / Comment(s): lip surgery from dog bite as a child, Gastric Bypass 06/17/22. cardioversion feb 2020 Past Anesthesia/Blood Transfusion Reactions: No Reported Reaction Past Psychological History: No Psychological Hx Reported Smoking Status: Never smoker - Past Family History Mother Family Medical History: No Reported History General Exam Limitations: no limitations General appearance: alert, in distress (due to pain) Eye exam: Present: normal appearance, PERRL, EOMI. Absent: scleral icterus, conjunctival injection, periorbital swelling Neck exam: Present: normal inspection Respiratory exam: Present: normal lung sounds bilaterally, chest wall tenderness (left sided ). Absent: respiratory distress, wheezes, rales, rhonchi, stridor Cardiovascular Exam: Present: normal rhythm, tachycardia, normal heart sounds. Absent: regular rate, systolic murmur, diastolic murmur, rubs, gallop, clicks GI/Abdominal exam: Present: soft, normal bowel sounds. Absent: distended, tenderness, guarding, rebound, rigid Right Upper Arm exam: Present: normal inspection. Absent: full ROM (limited due to pain), tenderness, swelling Elbow exam: Present: normal inspection, tenderness. Absent: full ROM (limited due to pain), swelling, erythema Forearm Wrist exam: Present: normal inspection. Absent: full ROM (limited due to pain), tenderness, swelling, erythema Vascular: Present: normal capillary refill Neurological exam: Present: alert, oriented X3, CN II-XII intact Psychiatric exam: Present: normal affect, anxious Skin exam: Present: warm, dry, intact, normal color. Absent: rash Course Vital Signs 09/05/22 09/05/22 09/05/22 00:53 01:09 01:10 Temperature 97.6 F Pulse Rate 110 H 122 H 124 H Respiratory 28 H 14 Rate Blood Pressure 122/84 120/80 O2 Sat by Pulse 96 97 97 Oximetry 09/05/22 09/05/22 09/05/22 01:20 01:30 01:40 Temperature Pulse Rate 107 H 100 98 Respiratory 17 15 20 Rate Blood Pressure 120/80 120/80 130/88 O2 Sat by Pulse 96 97 Oximetry 09/05/22 09/05/22 09/05/22 01:50 02:00 02:20 Temperature Pulse Rate 106 H 97 Respiratory 17 Rate Blood Pressure 130/88 130/88 127/74 O2 Sat by Pulse 93 L Oximetry 09/05/22 09/05/22 09/05/22 02:30 02:40 02:50 Temperature Pulse Rate 93 94 90 Respiratory 17 14 18 Rate Blood Pressure 127/74 121/77 121/77 O2 Sat by Pulse 92 L 95 92 L Oximetry 09/05/22 09/05/22 03:00 03:10 Temperature Pulse Rate 89 84 Respiratory 17 15 Rate Blood Pressure 121/77 116/82 O2 Sat by Pulse 93 L 99 Oximetry Chest Pain MDM - [facility] EKG taken at 1:00, interpreted of any Sinus tachycardia, no ST segment or T-wave abnormalities Ventricular rate of 131, NH interval 131, QRS duration 94, QTC 395 Was pt. sent in by a medical professional or institution (, PA, HAULPAK DRIVER, urgent care, hospital, or group home...) When possible be specific @ -[No] Did you speak to anyone other than the patient for history (EMS, parent, family, police, friend...)? What history was obtained from this source @ -[No] Did you review nursing and triage notes (agree or disagree)? Why? @ -[I reviewed and agree with nursing and triage notes] Were old charts reviewed (outside hosp., previous admission, EMS record, old EKG, old radiological studies, urgent care reports/EKG's, group home records)? Report findings @ -[No old charts were reviewed] Differential Diagnosis (chest pain, altered mental status, abdominal pain women, abdominal pain men, vaginal bleeding, weakness, fever, dyspnea, syncope, headache, dizziness, GI bleed, back pain, seizure, CVA, palpatations, mental health)? @ -[not applicable] EKG interpreted by me (3pts min.). @ -[As above] X-rays interpreted by me (1pt min.). @ -[None done] CT interpreted by me (1pt min.). @ -Yes, negative for acute process U/S interpreted by me (1pt. min.). @ -[None done] What testing was considered but not performed or refused? (CT, X-rays, U/S, labs)? Why? @ -[None] What meds were considered but not given or refused? Why? @ -[None] Did you discuss the management of the patient with other professionals (professionals i.e. DrBrandon, PA, HAULPAK DRIVER, lab, RT, psych nurse, social security specialist, filenet p8 developer, teacher, career services officer, case planner)? Give summary @ -[No] Was smoking cessation discussed for >3mins.? @ -[No] Was critical care preformed (if so, how long)? @ -[No] Were there social determinants of health that impacted care today? How? (Homelessness, low income, unemployed, alcoholism, drug addiction, t ransportation, low edu. Level, literacy, decrease access to med. care, skilled nursing, rehab)? @ -[No] Was there de-escalation of care discussed even if they declined (Discuss DNR or withdrawal of care, Hospice)? DNR status @ -[No] What co-morbidities impacted this encounter? (DM, HTN, Smoking, COPD, CAD, Cancer, CVA, ARF, Chemo, Hep., AIDS, mental health diagnosis, sleep apnea, morbid obesity)? @ -Diabetes, hypertension, obesity Was patient admitted / discharged? Hospital course, mention meds given and route, prescriptions, significant lab abnormalities, going to OR and other pertinent info. @ -Patient presenting for chest pain. Patient appears to be in pain. He is tachycardic which he has history of. Hemodynamically stable. No shortness of breath. EKG shows sinus tachycardia with no evidence of acute ischemia.Laboratory studies obtained. Troponin is within normal limits. D- dimer is elevated at 0.76. There is mild hypokalemia at 3.3, hypomagnesemia at 1.3. Lactic elevated at 2.9. Patient given fluid bolus zofran and dilaudid with improvement of sym ptoms.Patient did become mildy hypoxic at 92% he was placed on 2L nasal cannula. CT angiogram thoracic abdomen and pelvis shows no evidence of dissection, aneurysm, pulmonary embolism or acute process.There is a 3.24.04.8 cm cystic mass adjacent to the greater curvature staple line which is favored to relate the sequelae of prior surgery. results discussed with patient and family. Patient tp be admitted for further evaluation and management. Cardiology and general surgery on consult. Patient admitted in stable condition Undiagnosed new problem with uncertain prognosis? @ -[No] Drug Therapy requiring intensive monitoring for toxicity (Heparin, Nitro, Insulin, Cardizem)? @ -[No] Were any procedures done? @ -[No] Diagnosis/symptom? @ -chest pain Acute, or Chronic, or Acute on Chronic? -acute Uncomplicated (without systemic symptoms) or Complicated (systemic symptoms)? @ -uncomplicated Side effects of treatment? @ -[No] Exacerbation, Progression, or Severe Exacerbation? @ -[No] Poses a threat to life or bodily function? How? (Chest pain, USA, DC, pneumonia, PE, COPD, DKA, ARF, appy, cholecystitis, CVA, Diverticulitis, Homicidal, Suicidal, threat to staff... and all critical care pts) @ -possibly Dr. Babb is my attending . Disposition Clinical Impression: Chest pain Disposition: ADMITTED IP TO THIS HOSP Condition: Stable Referrals: None,Stated [REFERRING] - 1-2 days
[2022-09-05 01:20] LABS: Basophils % (A) 1 %; Eosinophils # (A) 0.1 k/uL (0-0.7); Eosinophils % (A) 1 %; HCT 44.2 % (39.0-53.0); Lymphocytes % (A) 30 %; MCH 29.9 pg (25.0-35.0); MCHC 33.8 g/dL (31.0-37.0); MCV 88.4 fL (80.0-100.0); Mean Platelet Volume 10.1; Monocytes # (A) 0.7 k/uL (0-1.0); Monocytes % (A) 10 %; Neutrophils # (A) 3.6 k/uL (1.3-7.7); Neutrophils % (A) 55 %; Platelet Count 130 k/uL (150-450); RDW 14.2 % (11.5-15.5); WBC 6.4 k/uL (3.8-10.6)
[2022-09-05] MEDS ORDERED: HYDROmorphone 1 MG/ML 1 ML SYRINGE IVP STA (01:22)
[2022-09-05 01:31] LABS: ALT 23 U/L (4-49); AST 25 U/L (17-59); African American GFR (CKD) >90 (>60 ml/min/1.73 sqM); Albumin 4.1 g/dL (3.5-5.0); Alkaline Phosphatase 71 U/L (38-126); Anion Gap 20 mmol/L; Blood Urea Nitrogen 3 mg/dL (9-20); Calcium 8.9 mg/dL (8.4-10.2); Carbon Dioxide 16 mmol/L (22-30); Chloride 99 mmol/L (98-107); Glucose 218 mg/dL (74-99); Magnesium 1.3 mg/dL (1.6-2.3); Non-African American GFR(CKD) >90 (>60 ml/min/1.73 sqM); Potassium 3.3 mmol/L (3.5-5.1); Sodium 135 mmol/L (137-145); Total Bilirubin 1.6 mg/dL (0.2-1.3); Total Protein 7.1 g/dL (6.3-8.2)
[2022-09-05 01:33] LABS: INR 1.2 (<1.2); Prothrombin Time 12.8 sec (9.0-12.0)
[2022-09-05] MEDS ORDERED: POTASSIUM CHLORIDE ER 20 MEQ TAB.ER PO STA (01:44)
[2022-09-05] MEDS ORDERED: MAGNESIUM SULFATE-D5W PMX 1 GM in DEXTROSE/WATER 1 100ML.BAG IVPB ONE (01:45)
[2022-09-05 02:13] LABS: Alcohol <10 mg/dL; Lipase 114 U/L (23-300)
--- NOTE | 2022-09-05 04:04 | CT ---
EXAM: CT Angiography Chest, Abdomen and Pelvis Without and With Intravenous Contrast CLINICAL HISTORY: ITS.REASON CT Reason: dissection concern TECHNIQUE: Axial computed tomographic angiography images of the chest, abdomen and pelvis without and with intravenous contrast. CTDI is 42.14 mGy and DLP is 1929.65 mGy-cm. This CT exam was performed using one or more of the following dose reduction techniques: automated exposure control, adjustment of the mA and/or kV according to patient size, and/or use of iterative reconstruction technique. MIP reconstructed images were created and reviewed. COMPARISON: No relevant prior studies available. FINDINGS: Limitations: Limited evaluation given bolus timing. VASCULATURE: Aorta: No acute findings. No aortic aneurysm. No dissection. Pulmonary arteries: Poorly diagnostic due to bolus timing and motion. No evidence of pulmonary embolism in the pulmonary outflow tract. Great vessels of aortic arch: No acute findings. No dissection. No arterial occlusion or significant stenosis. Celiac trunk and mesenteric arteries: No acute findings. No occlusion or significant stenosis. Renal arteries: No acute findings. No occlusion or significant stenosis. Iliac arteries: No acute findings. No occlusion or significant stenosis. CHEST: Lungs: Dependent atelectatic changes. No mass. No consolidation. Pleural space: Unremarkable. No significant effusion. No pneumothorax. Heart: Unremarkable. No cardiomegaly. No significant pericardial effusion. Mediastinum: Small esophageal hiatal hernia. ABDOMEN: Liver: Unremarkable. No mass. Gallbladder and bile ducts: Cholecystectomy changes. No ductal dilation. Pancreas: Unremarkable. No ductal dilation. No mass. Spleen: Unremarkable. No splenomegaly. Adrenals: Unremarkable. No mass. Kidneys and ureters: Unremarkable. No obstructing stones. No hydronephrosis. No solid mass. Stomach and bowel: Lydia-en-Y gastric bypass changes. 3.2 x 4.0 x 4.8 cm cystic mass adjacent to the greater curvature staple line which is favored to relate to sequelae of prior surgery. No evidence of bowel obstruction. PELVIS: Appendix: Normal appendix. Bladder: Unremarkable. No stones. No mass. Reproductive: Unremarkable as visualized. CHEST, ABDOMEN and PELVIS: Intraperitoneal space: Unremarkable. No significant fluid collection. No free air. Bones/joints: No acute fracture. No dislocation. Soft tissues: Umbilical hernia containing fat. Lymph nodes: Unremarkable. No enlarged lymph nodes. Tubes, lines and devices: Stranding overlying the intra-abdominal wall which may relate to laparoscopic port changes. IMPRESSION: 1. No evidence of aneurysm or dissection is clinically queried. 2. Lydia-en-Y gastric bypass changes. 3.2 x 4.0 x 4.8 cm cystic mass adjacent to the greater curvature staple line which is favored to relate to sequelae of prior surgery. No evidence of bowel obstruction. 3. No other acute findings. 4. Incidental findings as described.
[2022-09-05] MEDS ORDERED: NALOXONE 0.4 MG/ML 1 ML VIAL IV PRN ×2 (04:07→04:24)
[2022-09-05] MEDS ORDERED: SIMETHICONE 40 MG/0.6 ML DROPS 2,000 MG/30 ML BOTTLE PO PRN (04:25)
[2022-09-05] MEDS ORDERED: DEXTROSE 50% SYRINGE 50 ML IVP PRN ×2 (04:27)
[2022-09-05] MEDS: SCOPOLAMINE 1 MG/72 HR PATCH TRANSDERM SCH (04:38)
[2022-09-05] MEDS: HYDROmorphone 0.5 MG/0.5 ML SYRINGE IVP PRN ×2 (04:46→17:55)
[2022-09-05 05:02] LABS: Glucose,Whole Blood 169 mg/dL (70-110)
[2022-09-05] MEDS ORDERED: POTASSIUM CHLORIDE 20 MEQ in WATER FOR INJECTION 1 100ML.BAG IVPB STA (05:19)
[2022-09-05] MEDS: INSULIN ASPART (NovoLOG) 100 UNIT/ML VIAL SQ SCH ×2 (07:33→18:12)
--- NOTE | 2022-09-05 09:50 | P.CRDCN ---
History of Present Illness Consult date: 09/05/22 Consult reason: chest pain History of present illness: History of present illness: This is a 31-year-old male patient seen in the past by Dr. Jamal Gallegos with past medical history of SVT status post cardioversion in 2019, diabetes mellitus, hypertension, gastroesophageal reflux disease, morbid obesity. Patient was last seen in the office in 2019 that time he was on Toprol-XL 25 mg daily. We have been asked to evaluate the patient for chest pain. Patient complains of severe pain in his right arm most severe at the elbow. He states he has had no injury but is unable to move his arm. Regarding chest pains had some that comes and goes when he stands. He also states his heart rate was elevated when he came in. No chest pain at this time. Patient denies alcohol use. Patient has not been taking Toprol-XL at home. EKG sinus tachycardia 131 bpm Laboratory studies: WBC 6.4, hemoglobin 15. Platelet count 130. INR 1.2. D- dimer 0.76. Sodium 135, potassium 3.3, CO2 16, BUN 3, creatinine 0.53. Blood sugar 218. Troponin negative 2. Lactic acid 2.9 and repeat 0.6. Alcohol level less than 10, acetone positive CT angiogram of the chest abdomen pelvis revealed no evidence of aneurysm or dissection. Lydia-en-Y gastric bypass changes. Cystic mass adjacent to a stable. No evidence of bowel obstruction. No other acute findings. Home cardiac medications: None Review Of Systems: At the time of my evaluation: Constitutional: No fever, no chills. No weakness, fatigue or lethargy. EENT: No headache. No dizziness. Lungs: No shortness of breath, cough, no sputum production. No wheezing. Cardiovascular: No chest pain, no lower extremity edema. No palpitations. No paroxysmal nocturnal dyspnea. No orthopnea. No lightheadedness or dizziness. No syncopal episodes. Abdominal: No abdominal pain. No nausea, vomiting. No diarrhea. No constipation. No bloody or tarry stools. Genitourinary: No dysuria.. No urinary retention. Musculoskeletal: No myalgias. No muscle weakness, no frequent falls. No back pain. No neck pain. Integumentary: No wounds. Neurologic: No aphasia. No facial droop. No change in mentation. No head injury. No headache. Physical examination: Gen: This is a 31-year-old male, resting on the ER stretcher. Appears to be uncomfortable due to right elbow pain. VS: reviewed HEENT: Head is atraumatic, normocephalic. Pupils equal, round. Sclerae is anicteric. NECK: Supple. No JVD. LUNGS: Clear to auscultation. No wheezes or rhonchi. No intercostal retractions. HEART: Regular rate and rhythm. No murmur. ABDOMEN: Soft. No tenderness. EXTREMITIES: No pedal edema. No calf tenderness. NEUROLOGICAL: Patient is awake, alert and oriented x3. Assessment: Right elbow pain SVT Cystic mass on CAT scan Plan: Patient will be started on Toprol-XL 25 mg daily and should continue at discha rge. No cardiac workup, discontinue cardiac monitoring. Cardiology will sign off this case and follow on an as-needed basis. Please reconsult for any new concerns. Thank you kindly for this consultation. Nurse practitioner note has been reviewed, I agree with documented findings and plan of care. Patient was seen and examined. Past Medical History Past Medical History: Asthma, Chest Pain / Angina, Diabetes Mellitus, GERD/Reflux, Hypertension Additional Past Medical History / Comment(s): "high heart rate" - February 2020,. gout. RECENT INPT FOR DEHYDRATION-07/31/22-08/09/22 History of Any Multi-Drug Resistant Organisms: None Reported Past Surgical History: Bariatric Surgery, Cholecystectomy Additional Past Surgical History / Comment(s): lip surgery from dog bite as a child, Gastric Bypass 06/17/22. cardioversion feb 2020 Past Anesthesia/Blood Transfusion Reactions: No Reported Reaction Past Psychological History: No Psychological Hx Reported Smoking Status: Never smoker - Past Family History Mother Family Medical History: No Reported History Medications and Allergies Home Medications Medication Instructions Recorded Confirmed Type Insulin Glargine [Lantus Vial] 7 unit SQ HS 07/14/22 09/05/22 History Acetaminophen Oral Susp [Tylenol] 650 mg PO Q4-6H PRN #480 ml 08/09/22 09/05/22 Rx Simethicone 40 mg/0.6 ml Drops 40 mg PO PCHS PRN #30 ml 08/09/22 09/05/22 Rx [Mylicon Drops] Diclofenac Sodium Gel [Voltaren 4 gm TOPICAL QID PRN 09/05/22 09/05/22 History Gel] Metoclopramide [Reglan] 10 mg PO Q6H PRN 09/05/22 09/05/22 History Omeprazole 40 mg PO BID PRN 09/05/22 09/05/22 History Scopolamine [Scopolamine 1 MG/72 1 patch TRANSDERM Q72H PRN 09/05/22 09/05/22 History HR patch] Sucralfate [Carafate] 1 gm PO BID PRN 09/05/22 09/05/22 History Allergies Allergy/AdvReac Type Severity Reaction Status Date / Time Penicillins Allergy Rash/Hives, Verified 09/05/22 06:55 Difficulty breathing Physical Exam Vitals: Vital Signs Temp Pulse Resp BP Pulse Ox 09/05/22 06:30 98 18 128/85 96 09/05/22 06:00 95 16 118/87 95 09/05/22 05:50 90 16 118/87 95 09/05/22 05:46 95 09/05/22 05:40 93 14 118/87 99 09/05/22 05:30 87 13 116/81 98 09/05/22 05:20 89 13 116/81 97 09/05/22 05:10 90 13 116/81 97 09/05/22 05:00 87 12 132/93 99 09/05/22 04:50 86 14 132/93 100 09/05/22 04:40 88 20 132/93 99 09/05/22 04:30 88 17 124/82 100 09/05/22 04:20 110 H 14 124/82 100 09/05/22 04:10 84 15 124/82 99 09/05/22 04:00 82 16 122/78 99 09/05/22 03:50 83 15 122/78 98 09/05/22 03:40 89 15 122/78 98 09/05/22 03:30 87 15 116/82 98 09/05/22 03:20 85 16 116/82 98 09/05/22 03:10 84 15 116/82 99 09/05/22 03:00 89 17 121/77 93 L 09/05/22 02:50 90 18 121/77 92 L 09/05/22 02:40 94 14 121/77 95 09/05/22 02:30 93 17 127/74 92 L 09/05/22 02:20 97 17 127/74 93 L 09/05/22 02:00 130/88 09/05/22 01:50 106 H 130/88 09/05/22 01:40 98 20 130/88 09/05/22 01:30 100 15 120/80 97 09/05/22 01:20 107 H 17 120/80 96 09/05/22 01:10 124 H 14 120/80 97 09/05/22 01:09 122 H 97 09/05/22 00:53 97.6 F 110 H 28 H 122/84 96 Intake and Output 09/04/22 09/05/22 09/05/22 22:59 06:59 14:59 Other: Weight 136.985 kg Results 09/05/22 01:14 09/05/22 01:14 Cardiac Enzymes 09/05/22 09/05/22 09/05/22 Range/Units 01:14 01:14 04:23 AST 25 (17-59) U/L Troponin I <0.012 <0.012 (0.000-0.034) ng/mL Coagulation 09/05/22 Range/Units 01:14 PT 12.8 H (9.0-12.0) sec APTT 23.0 (22.0-30.0) sec CBC 09/05/22 Range/Units 01:14 WBC 6.4 (3.8-10.6) k/uL RBC 5.00 (4.30-5.90) m/uL Hgb 15.0 (13.0-17.5) gm/dL Hct 44.2 (39.0-53.0) % Plt Count 130 L (150-450) k/uL Comprehensive Metabolic Panel 09/05/22 Range/Units 01:14 Sodium 135 L (137-145) mmol/L Potassium 3.3 L (3.5-5.1) mmol/L Chloride 99 (98-107) mmol/L Carbon Dioxide 16 L (22-30) mmol/L BUN 3 L (9-20) mg/dL Creatinine 0.53 L (0.66-1.25) mg/dL Glucose 218 H (74-99) mg/dL Calcium 8.9 (8.4-10.2) mg/dL AST 25 (17-59) U/L ALT 23 (4-49) U/L Alkaline Phosphatase 71 (38-126) U/L Total Protein 7.1 (6.3-8.2) g/dL Albumin 4.1 (3.5-5.0) g/dL Current Medications Generic Name Dose Route Start Last Admin Trade Name Freq PRN Reason Stop Dose Admin Dextrose/Water 25 ml 09/05/22 04:27 Dextrose 50% Syringe 50 Ml IVP PER PROTOCOL PRN Hypoglycemia Protocol Dextrose/Water 50 ml 09/05/22 04:27 Dextrose 50% Syringe 50 Ml IVP PER PROTOCOL PRN Hypoglycemia Protocol Hydromorphone HCl 0.5 mg 09/05/22 04:07 09/05/22 04:46 Hydromorphone 0.5 Mg/0.5 Ml Syringe IVP 0.5 mg Q3HR PRN Administration Moderate Pain (Scale 4 to 6) Sodium Chloride 1,000 mls @ 130 mls/hr 09/05/22 02:55 09/05/22 03:13 Saline 0.9% IV 09/05/22 10:36 130 mls/hr .[id number] STA Administration Insulin Aspart 0 unit 09/05/22 07:30 Insulin Aspart (Novolog) 100 Unit/Ml Vial SQ ACHS CHAZ Protocol Naloxone HCl 0.2 mg 09/05/22 04:07 Naloxone 0.4 Mg/Ml 1 Ml Vial IV Q2M PRN Opioid Reversal Ondansetron HCl 4 mg 09/05/22 04:07 Ondansetron 4 Mg/2 Ml Vial IVP Q8HR PRN Nausea And Vomiting Scopolamine 1 patch 09/05/22 04:30 09/05/22 04:38 Scopolamine 1 Mg/72 Hr Patch TRANSDERM 1 patch Q72H CHAZ Administration Simethicone 40 mg 09/05/22 04:25 09/05/22 04:39 Simethicone 40 Mg/0.6 Ml Drops 2,000 Mg/30 Ml Bottle PO 40 mg PCHS PRN Administration gas Sucralfate 1 gm 09/05/22 09:00 Sucralfate 1 Gm Tab PO BID CHAZ Intake and Output 09/04/22 09/05/22 09/05/22 22:59 06:59 14:59 Other: Weight 136.985 kg 09/05/22 01:14 09/05/22 01:14
[2022-09-05] MEDS ORDERED: PROPOFOL 10 MG/ML 20 ML VIAL IV ONE (10:27)
[2022-09-05] MEDS ORDERED: fentaNYL (PF) 50 MCG/ML 2 ML AMP ONE (10:27)
[2022-09-05] MEDS ORDERED: KETAMINE 10 MG/ML 20 ML VIAL ONE (10:27)
[2022-09-05] MEDS ORDERED: GLYCOPYRROLATE 0.2 MG/ML 2 ML VIAL ONE (10:27)
[2022-09-05] MEDS ORDERED: MIDAZOLAM 2 MG/2 ML VIAL ONE (10:27)
[2022-09-05] MEDS ORDERED: ONDANSETRON 4 MG/2 ML VIAL ONE (10:27)
[2022-09-05] MEDS ORDERED: LIDOCAINE 2% INJ 20 MG/ML (2 ML VIAL) ONE (10:27)
--- NOTE | 2022-09-05 10:27 | P.GSCN ---
History of Present Illness Consult date: 09/05/22 History of present illness: CHIEF COMPLAINT: Atypical chest pain, history of gastric stenosis plus esophageal stricture HISTORY OF PRESENT ILLNESS: The patient is a 31 year old male with complicated history of gastric bypass followed by cholecystectomy and gastric stenosis in the past 3 months. Patient presented with atypical chest pain where CT of the chest demonstrated questionable cystic lesion at his gastric bypass. Separately, patient comes in with dehydration and chest pain. Gen. surgery is consulted for abnormal computed tomography scan including gastric stenosis. Patient reports developing heart rate 180s and came to emergency room 5 days ago. He has reports new onset right arm pain and inability to move started last night. Patient reports intractable nausea and vomiting last night into this morning. He has personal history of esophageal stenosis. PAST MEDICAL HISTORY: See list and reviewed PAST SURGICAL HISTORY: See list and reviewed MEDICATIONS: See list and reviewed ALLERGIES: See list and reviewed SOCIAL HISTORY: See list and reviewed FAMILY HISTORY: See list and reviewed REVIEW OF ORGAN SYSTEMS: CONSTITUTIONAL: No fevers or chills. Intentional weight loss from gastric bypass surgery, highest 470 pounds, BMI 63.9. EYES: Denies any trouble with vision. No glasses. HEENT: No difficulties with hearing. No nosebleeds. Has difficulty swallowing. RESPIRATORY: Has atypical chest pain. Has obstructive sleep apnea. CARDIOVASCULAR: Denies any chest pain, palpitations, or recent heart attacks. Has persistent tachycardia prior to surgery, with cardiac clearance obtained. GASTROINTESTINAL: Denies fatty food intolerance. Has nausea or vomiting. GENITOURINARY: Denies any blood in urine or increased urinary frequency. NEUROLOGICAL: Denies any numbness or tingling along the distal extremities. No seizure disorders or headaches. MUSCULOSKELETAL: Has back pain, stiffness or joint arthritis. Has gout. SKIN: No current skin cancer. No rash. PSYCHIATRIC: Denies current depression or suicidal thoughts. ENDOCRINE: Denies current thyroid disorders. Has insulin-dependent diabetes type 2. HEME/LYMPHATIC: Denies any lumps and bumps around the neck. No recent deep venous thrombosis. ALLERGY/IMMUNOLOGY: No immunoglobulin therapy. No immune deficiencies. BREAST: Denies current breast lumps, pain or nipple discharge. PHYSICAL EXAM: VITALS: Reviewed CONSTITUTIONAL: Well developed and in no acute distress. EYES: Conjuctivae without sclera icterus. Extraocular movements grossly intact. HEAD, EARS, NOSE, THROAT: Moist buccal mucosa. Head is atraumatic, normocephalic. Hears conversational speech. No nasal drainage. NECK: Supple. No JV distention. No thyroidomegaly. RESPIRATORY: Non-labored respirations and equal bilateral excursions. No gross wheezes. CARDIOVASCULAR: Palpable 2+ radial pulses. ABDOMEN: Tender epigastrium. No diffuse peritonitis. All incisions granulated. LYMPH: No neck lymphadenopathy. MUSCULOSKELETAL: No clubbing cyanosis. SKIN: Warm and well perfused with good skin turgor. NEUROLOGIC: Cranial nerves II through XII grossly intact. No focal or lateralizing signs. PSYCH: Appropriate affect. Alert and oriented to person, place and time. Displays appropriate insight. CLINCAL LABS: Reviewed. WBC normal. Hemoglobin normal. Total bilirubin elevated at 1.6. Magnesium low 1.3. Lactic acid level was elevated. IMAGING: Independently reviewed CT of the chest demonstrates no features of internal hernia, small bowel obstruction or intra-abdominal abscess. This is my independent interpretation. RADIOLOGY: Report reviewed demonstrates 3.5 cm cystic lesion at staple line of the gastric pouch. ASSESSMENT: 1. Abnormal computed tomography scan chest with cystic mass 2. Atypical chest pain 3. Morbid obesity excess calories, BM 40.7 4. Status post gastric bypass 5. Obstructive sleep apnea 6. Gout 7. Intractable nausea vomiting 8. Dysphagia 9. History of esophageal dilation for esophageal stricture 10. History of elevated LFTs 11. Dehydration 12. Hypomagnesia 13. Pre-existing persistent tachycardia 14. Diabetes type 2, insulin-dependent with diabetic nephropathy 15. Right arm weakness with pain PLAN: 1. IV fluid hydration for dehydration 2. He has personal history of esophageal stenosis with atypical chest pain. Upper endoscopy advised with possible dilation. He is elevated list due to pre- existing gastric bypass procedure. 3. Cardiology consultation pending Past Medical History Past Medical History: Asthma, Chest Pain / Angina, Diabetes Mellitus, GERD/Reflux, Hypertension Additional Past Medical History / Comment(s): "high heart rate" - February 2020,. gout. RECENT INPT FOR DEHYDRATION-07/31/22-08/09/22 History of Any Multi-Drug Resistant Organisms: None Reported Past Surgical History: Bariatric Surgery, Cholecystectomy Additional Past Surgical History / Comment(s): lip surgery from dog bite as a child, Gastric Bypass 06/17/22. cardioversion feb 2020 Past Anesthesia/Blood Transfusion Reactions: No Reported Reaction Past Psychological History: No Psychological Hx Reported Smoking Status: Never smoker - Past Family History Mother Family Medical History: No Reported History Medications and Allergies Home Medications Medication Instructions Recorded Confirmed Type Insulin Glargine [Lantus Vial] 7 unit SQ HS 07/14/22 09/05/22 History Acetaminophen Oral Susp [Tylenol] 650 mg PO Q4-6H PRN #480 ml 08/09/22 09/05/22 Rx Simethicone 40 mg/0.6 ml Drops 40 mg PO PCHS PRN #30 ml 08/09/22 09/05/22 Rx [Mylicon Drops] Diclofenac Sodium Gel [Voltaren 4 gm TOPICAL QID PRN 09/05/22 09/05/22 History Gel] Metoclopramide [Reglan] 10 mg PO Q6H PRN 09/05/22 09/05/22 History Omeprazole 40 mg PO BID PRN 09/05/22 09/05/22 History Scopolamine [Scopolamine 1 MG/72 1 patch TRANSDERM Q72H PRN 09/05/22 09/05/22 History HR patch] Sucralfate [Carafate] 1 gm PO BID PRN 09/05/22 09/05/22 History Allergies Allergy/AdvReac Type Severity Reaction Status Date / Time Penicillins Allergy Rash/Hives, Verified 09/05/22 06:55 Difficulty breathing Surgical - Exam Vital Signs Temp Pulse Resp BP Pulse Ox 97.6 F 110 H 28 H 122/84 96 09/05/22 00:53 09/05/22 00:53 09/05/22 00:53 09/05/22 00:53 09/05/22 00:53 Results - Labs 09/05/22 01:14 09/05/22 01:14 Abnormal Lab Results - Last 24 Hours (Table) 09/05/22 09/05/22 09/05/22 Range/Units 01:14 01:14 01:14 Plt Count 130 L (150-450) k/uL PT 12.8 H (9.0-12.0) sec INR 1.2 H (<1.2) D-Dimer 0.76 H (<0.60) mg/L FEU Sodium 135 L (137-145) mmol/L Potassium 3.3 L (3.5-5.1) mmol/L Carbon Dioxide 16 L (22-30) mmol/L BUN 3 L (9-20) mg/dL Creatinine 0.53 L (0.66-1.25) mg/dL Glucose 218 H (74-99) mg/dL POC Glucose (mg/dL) (70-110) mg/dL Hemoglobin A1c (0.0-6.0) % Plasma Lactic Acid Adrian (0.7-2.0) mmol/L Magnesium 1.3 L (1.6-2.3) mg/dL Total Bilirubin 1.6 H (0.2-1.3) mg/dL 09/05/22 09/05/22 09/05/22 Range/Units 01:14 04:57 04:57 Plt Count (150-450) k/uL PT (9.0-12.0) sec INR (<1.2) D-Dimer (<0.60) mg/L FEU Sodium (137-145) mmol/L Potassium (3.5-5.1) mmol/L Carbon Dioxide (22-30) mmol/L BUN (9-20) mg/dL Creatinine (0.66-1.25) mg/dL Glucose (74-99) mg/dL POC Glucose (mg/dL) (70-110) mg/dL Hemoglobin A1c 6.6 H (0.0-6.0) % Plasma Lactic Acid Adrian 2.9 H* 0.6 L (0.7-2.0) mmol/L Magnesium (1.6-2.3) mg/dL Total Bilirubin (0.2-1.3) mg/dL 09/05/22 Range/Units 05:01 Plt Count (150-450) k/uL PT (9.0-12.0) sec INR (<1.2) D-Dimer (<0.60) mg/L FEU Sodium (137-145) mmol/L Potassium (3.5-5.1) mmol/L Carbon Dioxide (22-30) mmol/L BUN (9-20) mg/dL Creatinine (0.66-1.25) mg/dL Glucose (74-99) mg/dL POC Glucose (mg/dL) 169 H (70-110) mg/dL Hemoglobin A1c (0.0-6.0) % Plasma Lactic Acid Adrian (0.7-2.0) mmol/L Magnesium (1.6-2.3) mg/dL Total Bilirubin (0.2-1.3) mg/dL Diabetes panel 09/05/22 09/05/22 Range/Units 01:14 04:57 Sodium 135 L (137-145) mmol/L Potassium 3.3 L (3.5-5.1) mmol/L Chloride 99 (98-107) mmol/L Carbon Dioxide 16 L (22-30) mmol/L BUN 3 L (9-20) mg/dL Creatinine 0.53 L (0.66-1.25) mg/dL Glucose 218 H (74-99) mg/dL Hemoglobin A1c 6.6 H (0.0-6.0) % Calcium 8.9 (8.4-10.2) mg/dL AST 25 (17-59) U/L ALT 23 (4-49) U/L Alkaline Phosphatase 71 (38-126) U/L Total Protein 7.1 (6.3-8.2) g/dL Albumin 4.1 (3.5-5.0) g/dL Calcium panel 09/05/22 Range/Units 01:14 Calcium 8.9 (8.4-10.2) mg/dL Albumin 4.1 (3.5-5.0) g/dL Pituitary panel 09/05/22 Range/Units 01:14 Sodium 135 L (137-145) mmol/L Potassium 3.3 L (3.5-5.1) mmol/L Chloride 99 (98-107) mmol/L Carbon Dioxide 16 L (22-30) mmol/L BUN 3 L (9-20) mg/dL Creatinine 0.53 L (0.66-1.25) mg/dL Glucose 218 H (74-99) mg/dL Calcium 8.9 (8.4-10.2) mg/dL Adrenal panel 09/05/22 Range/Units 01:14 Sodium 135 L (137-145) mmol/L Potassium 3.3 L (3.5-5.1) mmol/L Chloride 99 (98-107) mmol/L Carbon Dioxide 16 L (22-30) mmol/L BUN 3 L (9-20) mg/dL Creatinine 0.53 L (0.66-1.25) mg/dL Glucose 218 H (74-99) mg/dL Calcium 8.9 (8.4-10.2) mg/dL Total Bilirubin 1.6 H (0.2-1.3) mg/dL AST 25 (17-59) U/L ALT 23 (4-49) U/L Alkaline Phosphatase 71 (38-126) U/L Total Protein 7.1 (6.3-8.2) g/dL Albumin 4.1 (3.5-5.0) g/dL
[2022-09-05] MEDS ORDERED: LACTATED RINGERS 1,000 ML IV ONE (10:33)
[2022-09-05] MEDS ORDERED: SODIUM CHLORIDE 0.9% 2,000 ML IV ONE (10:54)
--- NOTE | 2022-09-05 10:58 | P.PCN ---
Date of Procedure: 09/05/22 Description of Procedure: PREOPERATIVE DIAGNOSIS: Dysphagia. s/p Lydia-en-y gastric bypass. Nausea with vomiting. Morbid obesity. Diabetes type 2. Gastrojejunal stricture with chronic ulcer without perforation POSTOPERATIVE DIAGNOSIS: Dysphagia. s/p Lydia-en-y gastric bypass. Nausea with vomiting. Morbid obesity. Diabetes type 2. Gastrojejunal stricture without chronic ulcer without perforation Gastritis OPERATION: Esophagogastrojejunoscopy with balloon dilatation from 12 to 18 mm. SURGEON: Elzbieta Jenkins MD ANESTHESIA: MAC. INDICATIONS: The patient is a 31-year-old male who presents with a history of dysphagia, gastric bypass including nausea and vomiting. Benefits and risks of the procedure were described. Informed consent was obtained. DESCRIPTION: The patient was brought into the endoscopy suite and laid in the left lateral decubitus position. After a timeout was confirmed, the procedure was initiated. An Olympus gastroscope was passed along the posterior oropharynx down to the distal esophagus where the squamocolumnar junction was unremarkable. The gastric pouch was entered. A gastrojejunal stricture of 9 mm was found as the adult gastroscope was 9.5 mm in size. A Telly balloon dilator was placed through the scope. Final insufflation up to 12 mm was performed with a total of 2 minutes. The scope was advanced up to 60 cm from the incisors into the Lydia limb. The mucosa of the gastrojejunal anastomosis was intact. Resolved chronic gastrojejunal marginal ulcer was encountered. No full-thickness injury was encountered. The GI tract was desufflated. The patient tolerated the procedure well. FINDINGS: Squamocolumnar junction unremarkable at 43 cm. Stricture of approximately 12 mm encountered. Resolved chronic gastrojejunal ulceration Successful balloon dilatation to 18 mm. Gastric pouch 5 cm. Moderate gastritis along gastric pouch or biopsies obtained RECOMMENDATIONS: Continue carafate
[2022-09-05] MEDS ORDERED: PANTOPRAZOLE 40 MG/10 ML VIAL IVP SCH (11:00)
[2022-09-05 12:12] LABS: Glucose,Whole Blood 155 mg/dL (70-110)
[2022-09-05] MEDS ORDERED: Magnesium Replacement Protocol 1 EACH MISC MISCELLANE PRN (12:34)
[2022-09-05] MEDS ORDERED: Potassium Replacement Protocol 1 EACH MISC MISCELLANE PRN (12:34)
[2022-09-05] MEDS ORDERED: KETOROLAC 15 MG/ML 1 ML VIAL IVP PRN (12:37)
--- NOTE | 2022-09-05 12:57 | P.HPIM ---
History of Present Illness H&P Date: 09/05/22 This is a 31 year old male who has medical history of recent gastric bypass with laproscopic cholecystectomy, hypertension, diabetes. Patient was recently admitted to the hospital from 07/31/22 to 08/09/22 for dehydration and chest pain status post gastric bypass. During that admission patient underwent laproscopic cholecystectomy and was also evaluated by orthopedics for likely gout attack to the right great toe. Patient presents to the hospital this admission with complaints of chest pain that started around 0500 reported as left sided and shooting. Patient also reports dizziness and room spinning with blurry vision. Patient does admit to nausea and vomiting. No fever or chills. Additionally patient has pain and tenderness to the right elbow which is red warm and tender and there is possibly bursitis. Work up reveals platelet count of 130, D-Dimer of 0.76, sodium 135, potassium 3.3, blood glucose elevated at 169, magnesium 1.3. Troponin level is negative x 3. Patient is found to be ac etone positive and anion gap of 20. Patient had CT angiography completed of the chest abdomen and pelvis which reveals no evidence of aneurysm or dissection of the aorta, there are naty-en-Y gastric bypass changes with 3.2 x 4.0 x 4.8 cm cystic mass adjacent to greater curvature staple line which is favored to relelate to the sequelae of prior surgery. No evidence of bowel obstruction. No other acute findings. Poorly diagnostic pulmonary arteries secondary to bolus timing and motion, there is no pulmonary embolism in the pulmonary outflow tract. General surgery has been consulted and patient will be taken for upper endoscopy. Orthopedics will be consulted for evaluation of right elbow and l ikely patient will need aspiration if there bursitis. Unable to use medication like toradol or steroids patient does have chronic gastritis. Patient will be started on DKA protocol for management of ketoacidosis. Currently he is NPO. REVIEW OF SYSTEMS: CONSTITUTIONAL: No fever, no malaise, no fatigue HEENT: No recent visual problems or hearing problems. Denied any sore throat. CARDIOVASCULAR: reports left side shooting chest pain, no orthopnea, PND, no palpitations, no syncope. PULMONARY: No shortness of breath, no cough, no hemoptysis. GASTROINTESTINAL: No diarrhea,, no abdominal pain. Reports nausea, vomiting. NEUROLOGICAL: No headaches, no weakness, no numbness. HEMATOLOGICAL: Denies any bleeding or petechiae. GENITOURINARY: Denies any burning micturition, frequency, or urgency. MUSCULOSKELETAL/RHEUMATOLOGICAL: Reports right elbow pain redness and swelling. ENDOCRINE: Denies any polyuria or polydipsia. The rest of the 14-point review of systems is negative. PHYSICAL EXAMINATION: GENERAL: The patient is alert and oriented x3, not in any acute distress. Well developed, well nourished. HEENT: Pupils are round and equally reacting to light. EOMI. No scleral icterus. No conjunctival pallor. Normocephalic, atraumatic. No pharyngeal erythema. No thyromegaly. Lips are dry and chapped. CARDIOVASCULAR: S1 and S2 present. No murmurs, rubs, or gallops. PULMONARY: Chest is clear to auscultation, no wheezing or crackles. ABDOMEN: Soft, nontender, nondistended, normoactive bowel sounds. No palpable organomegaly. MUSCULOSKELETAL: Right elbow is swollen red and painful to touch. EXTREMITIES: No cyanosis, clubbing, or pedal edema. NEUROLOGICAL: Gross neurological examination did not reveal any focal deficits. SKIN: No rashes. Assessment and Plan Assesment Chest pain rule out ACS, chest pain is likely from gastritis, cardiology has been consulted Right elbow pain/redness/swelling rule out bursitis infectious vs. inflammatory possibly also inflammatory arthritis. Mobility is significantly affected. Diabetic ketoacidosis patient is acetone positive and will be started on insulin gtt. Nausea and vomiting under investigation Hypertension currently normotensive Elevated D-Dimer CTA negative for pulmonary embolism Hypokalemia, hypomagnesemia likely from poor oral intake Diabetes Mellitus type 2 Recent laproscopic cholecystectomy History of Naty en Y gastric bypass in March of 2022 with dysphagia and stricture postoperatively which required dilation History of tachycardia started on beta tika History of gout History of asthma Morbid Obesity GI prophylaxis DVT prophylaxis Full Code Plan General surgery consultation patient will be taken for endoscopy today Cardiology consultation, patient is on beta tika Orthopedics consultation for further evaluation of right elbow which xray will be ordered to rule out fracture patient may need aspiration of elbow and cultures Blood culture and patient will be started on IV vancomycin Insulin gtt and DKA protocol repeat labs patient will be transitioned to injectable insulin once anion gap has closed. Pain management Replace electrolytes per protocol Repeat labs in AM Patient will be made inpatient anticipated hospital stay greater than 2 nights. The impression and plan of care has been dictated by Silva Cook Nurse Practitioner as directed. Dr. Dangelo MD I have performed a history and physical examination and medical decision making of this patient, discussed the same with the dictator, and agree with the dictators assessment and plan as written, documented as a scribe. Based on total visit time, I have performed more than 50% of this visit. Past Medical History Past Medical History: Asthma, Chest Pain / Angina, Diabetes Mellitus, GERD/Reflux, Hypertension Additional Past Medical History / Comment(s): "high heart rate" - February 2020,. gout. RECENT INPT FOR DEHYDRATION-07/31/22-08/09/22 History of Any Multi-Drug Resistant Organisms: None Reported Past Surgical History: Bariatric Surgery, Cholecystectomy Additional Past Surgical History / Comment(s): lip surgery from dog bite as a child, Gastric Bypass 06/17/22. cardioversion feb 2020 Past Anesthesia/Blood Transfusion Reactions: No Reported Reaction Past Psychological History: No Psychological Hx Reported Smoking Status: Never smoker - Past Family History Mother Family Medical History: No Reported History Medications and Allergies Home Medications Medication Instructions Recorded Confirmed Type Insulin Glargine [Lantus Vial] 7 unit SQ HS 07/14/22 09/05/22 History Acetaminophen Oral Susp [Tylenol] 650 mg PO Q4-6H PRN #480 ml 08/09/22 09/05/22 Rx Simethicone 40 mg/0.6 ml Drops 40 mg PO PCHS PRN #30 ml 08/09/22 09/05/22 Rx [Mylicon Drops] Diclofenac Sodium Gel [Voltaren 4 gm TOPICAL QID PRN 09/05/22 09/05/22 History Gel] Metoclopramide [Reglan] 10 mg PO Q6H PRN 09/05/22 09/05/22 History Omeprazole 40 mg PO BID PRN 09/05/22 09/05/22 History Scopolamine [Scopolamine 1 MG/72 1 patch TRANSDERM Q72H PRN 09/05/22 09/05/22 History HR patch] Sucralfate [Carafate] 1 gm PO BID PRN 09/05/22 09/05/22 History Allergies Allergy/AdvReac Type Severity Reaction Status Date / Time Penicillins Allergy Rash/Hives, Verified 09/05/22 06:55 Difficulty breathing Physical Exam Vitals: Vital Signs Temp Pulse Resp BP Pulse Ox 09/05/22 06:30 98 18 128/85 96 09/05/22 06:00 95 16 118/87 95 09/05/22 05:50 90 16 118/87 95 09/05/22 05:46 95 09/05/22 05:40 93 14 118/87 99 09/05/22 05:30 87 13 116/81 98 09/05/22 05:20 89 13 116/81 97 09/05/22 05:10 90 13 116/81 97 09/05/22 05:00 87 12 132/93 99 09/05/22 04:50 86 14 132/93 100 09/05/22 04:40 88 20 132/93 99 09/05/22 04:30 88 17 124/82 100 09/05/22 04:20 110 H 14 124/82 100 09/05/22 04:10 84 15 124/82 99 09/05/22 04:00 82 16 122/78 99 09/05/22 03:50 83 15 122/78 98 09/05/22 03:40 89 15 122/78 98 09/05/22 03:30 87 15 116/82 98 09/05/22 03:20 85 16 116/82 98 09/05/22 03:10 84 15 116/82 99 09/05/22 03:00 89 17 121/77 93 L 09/05/22 02:50 90 18 121/77 92 L 09/05/22 02:40 94 14 121/77 95 09/05/22 02:30 93 17 127/74 92 L 09/05/22 02:20 97 17 127/74 93 L 09/05/22 02:00 130/88 09/05/22 01:50 106 H 130/88 09/05/22 01:40 98 20 130/88 09/05/22 01:30 100 15 120/80 97 09/05/22 01:20 107 H 17 120/80 96 09/05/22 01:10 124 H 14 120/80 97 09/05/22 01:09 122 H 97 09/05/22 00:53 97.6 F 110 H 28 H 122/84 96 Intake and Output 09/04/22 09/05/22 09/05/22 22:59 06:59 14:59 Other: Weight 136.985 kg Results CBC & Chem 7: 09/05/22 01:14 09/05/22 01:14 Labs: Abnormal Lab Results - Last 24 Hours (Table) 09/05/22 09/05/22 09/05/22 Range/Units 01:14 01:14 01:14 Plt Count 130 L (150-450) k/uL PT 12.8 H (9.0-12.0) sec INR 1.2 H (<1.2) D-Dimer 0.76 H (<0.60) mg/L FEU Sodium 135 L (137-145) mmol/L Potassium 3.3 L (3.5-5.1) mmol/L Carbon Dioxide 16 L (22-30) mmol/L BUN 3 L (9-20) mg/dL Creatinine 0.53 L (0.66-1.25) mg/dL Glucose 218 H (74-99) mg/dL POC Glucose (mg/dL) (70-110) mg/dL Hemoglobin A1c (0.0-6.0) % Plasma Lactic Acid Adrian (0.7-2.0) mmol/L Magnesium 1.3 L (1.6-2.3) mg/dL Total Bilirubin 1.6 H (0.2-1.3) mg/dL 09/05/22 09/05/22 09/05/22 Range/Units 01:14 04:57 04:57 Plt Count (150-450) k/uL PT (9.0-12.0) sec INR (<1.2) D-Dimer (<0.60) mg/L FEU Sodium (137-145) mmol/L Potassium (3.5-5.1) mmol/L Carbon Dioxide (22-30) mmol/L BUN (9-20) mg/dL Creatinine (0.66-1.25) mg/dL Glucose (74-99) mg/dL POC Glucose (mg/dL) (70-110) mg/dL Hemoglobin A1c 6.6 H (0.0-6.0) % Plasma Lactic Acid Adrian 2.9 H* 0.6 L (0.7-2.0) mmol/L Magnesium (1.6-2.3) mg/dL Total Bilirubin (0.2-1.3) mg/dL 09/05/22 Range/Units 05:01 Plt Count (150-450) k/uL PT (9.0-12.0) sec INR (<1.2) D-Dimer (<0.60) mg/L FEU Sodium (137-145) mmol/L Potassium (3.5-5.1) mmol/L Carbon Dioxide (22-30) mmol/L BUN (9-20) mg/dL Creatinine (0.66-1.25) mg/dL Glucose (74-99) mg/dL POC Glucose (mg/dL) 169 H (70-110) mg/dL Hemoglobin A1c (0.0-6.0) % Plasma Lactic Acid Adrian (0.7-2.0) mmol/L Magnesium (1.6-2.3) mg/dL Total Bilirubin (0.2-1.3) mg/dL Assessment and Plan Time with Patient: Less than 30
[2022-09-05] MEDS: SUCRALFATE 1 GM TAB PO SCH ×2 (13:03→20:14)
[2022-09-05] MEDS: METOPROLOL SUCCINATE (ER) 25 MG TAB.ER.24H PO SCH (13:04)
[2022-09-05] MEDS: MAGNESIUM SULFATE-D5W PMX 1 GM in DEXTROSE/WATER 1 100ML.BAG IVPB SCH ×3 (13:08→15:50)
[2022-09-05 13:11] LABS: Basophils % (A) 0 %; Eosinophils # (A) 0.1 k/uL (0-0.7); Eosinophils % (A) 1 %; HCT 38.7 % (39.0-53.0); HGB 13.1 gm/dL (13.0-17.5); Lymphocytes # (A) 0.6 k/uL (1.0-4.8); Lymphocytes % (A) 18 %; MCH 30.3 pg (25.0-35.0); MCHC 33.8 g/dL (31.0-37.0); MCV 89.5 fL (80.0-100.0); Mean Platelet Volume 10.1; Monocytes # (A) 0.4 k/uL (0-1.0); Monocytes % (A) 11 %; Neutrophils # (A) 2.4 k/uL (1.3-7.7); Neutrophils % (A) 68 %; Platelet Count 101 k/uL (150-450); RBC 4.32 m/uL (4.30-5.90); RDW 14.2 % (11.5-15.5); WBC 3.6 k/uL (3.8-10.6)
[2022-09-05] MEDS ORDERED: VANCOMYCIN IV PER PHARMACY 1 EACH MISC MISCELLANE PRN (13:12)
[2022-09-05 13:13] LABS: VBG PH 7.41 (7.31-7.41)
[2022-09-05 13:56] LABS: African American GFR (CKD) >90 (>60 ml/min/1.73 sqM); Anion Gap 15 mmol/L; Blood Urea Nitrogen <2 mg/dL (9-20); Carbon Dioxide 21 mmol/L (22-30); Chloride 102 mmol/L (98-107); Glucose 154 mg/dL (74-99); Non-African American GFR(CKD) >90 (>60 ml/min/1.73 sqM); Potassium 3.5 mmol/L (3.5-5.1); Sodium 138 mmol/L (137-145)
[2022-09-05] MEDS: COLCHICINE 0.6 MG EACH PO SCH (15:51)
[2022-09-05 15:54] LABS: African American GFR (CKD) >90 (>60 ml/min/1.73 sqM); Anion Gap 12 mmol/L; Blood Urea Nitrogen <2 mg/dL (9-20); Carbon Dioxide 23 mmol/L (22-30); Chloride 102 mmol/L (98-107); Glucose 156 mg/dL (74-99); Non-African American GFR(CKD) >90 (>60 ml/min/1.73 sqM); Phosphorus 3.7 mg/dL (2.5-4.5); Potassium 3.5 mmol/L (3.5-5.1); Sodium 137 mmol/L (137-145)
[2022-09-05 16:02] LABS: Glucose,Whole Blood 151 mg/dL (70-110)
[2022-09-05] MEDS: VANCOMYCIN 2,000 MG in SODIUM CHLORIDE 0.9% 500 ML 500 ML IVPB SCH ×2 (16:30→21:51)
[2022-09-05] MEDS ORDERED: D5-0.45% NACL WITH KCL 20MEQ/L 1,000 ML IV SCH (17:00)
[2022-09-05 17:13] LABS: Glucose,Whole Blood 151 mg/dL (70-110)
[2022-09-05] MEDS ORDERED: INSULIN REGULAR 100 UNIT in SODIUM CHLORIDE 0.9% 100 ML IV SCH (17:20)
--- NOTE | 2022-09-05 17:50 | XR ---
EXAMINATION TYPE: XR elbow complete RT DATE OF EXAM: 09/05/2022 COMPARISON: NONE HISTORY: Pain TECHNIQUE: 3 views FINDINGS: Elbow joint spaces are normal. I see no fracture nor dislocation. There is small posterior fat pad. IMPRESSION: There are small elbow joint effusion. No fracture seen. Radial head is intact
[2022-09-05 18:11] LABS: Glucose,Whole Blood 166 mg/dL (70-110)
--- NOTE | 2022-09-05 18:24 | P.CNOR ---
History of Present Illness - [facility] Consult date: 09/05/22 History of present illness: The patient is a very pleasant 31-year-old male with multiple medical problems who is presently admitted with chest pain. He has a complicated history having recently undergone bariatric surgery. Orthopedics has been consulted for acute onset atraumatic right elbow pain. At the time of my evaluation the patient reports history of gout which usually manifests in his lower extremities. He states that his right elbow is extremely painful and he has difficult time moving it. He has no other complaints in regards to his extremities at this time. Past Medical History Past Medical History: Asthma, Chest Pain / Angina, Diabetes Mellitus, GERD/Reflux, Hypertension Additional Past Medical History / Comment(s): "high heart rate" - February 2020,. gout. RECENT INPT FOR DEHYDRATION-07/31/22-08/09/22 History of Any Multi-Drug Resistant Organisms: None Reported Past Surgical History: Bariatric Surgery, Cholecystectomy Additional Past Surgical History / Comment(s): lip surgery from dog bite as a child, Gastric Bypass 06/17/22. cardioversion feb 2020 Past Anesthesia/Blood Transfusion Reactions: No Reported Reaction Past Psychological History: No Psychological Hx Reported Smoking Status: Never smoker Past Alcohol Use History: None Reported Past Drug Use History: None Reported - Past Family History Mother Family Medical History: No Reported History Medications and Allergies Home Medications Medication Instructions Recorded Confirmed Type Insulin Glargine [Lantus Vial] 7 unit SQ HS 07/14/22 09/05/22 History Acetaminophen Oral Susp [Tylenol] 650 mg PO Q4-6H PRN #480 ml 08/09/22 09/05/22 Rx Simethicone 40 mg/0.6 ml Drops 40 mg PO PCHS PRN #30 ml 08/09/22 09/05/22 Rx [Mylicon Drops] Diclofenac Sodium Gel [Voltaren 4 gm TOPICAL QID PRN 09/05/22 09/05/22 History Gel] Metoclopramide [Reglan] 10 mg PO Q6H PRN 09/05/22 09/05/22 History Omeprazole 40 mg PO BID PRN 09/05/22 09/05/22 History Scopolamine [Scopolamine 1 MG/72 1 patch TRANSDERM Q72H PRN 09/05/22 09/05/22 History HR patch] Sucralfate [Carafate] 1 gm PO BID PRN 09/05/22 09/05/22 History Allergies Allergy/AdvReac Type Severity Reaction Status Date / Time Penicillins Allergy Rash/Hives, Verified 09/05/22 06:55 Difficulty breathing Physical Examination The patient is resting comfortably in his bed. He is in no apparent distress and is easily able to converse with me. His head is normocephalic and atraumatic. His abdomen is obese. A focused exam of the right upper extremity was conducted. On inspection there is diffuse swelling throughout his elbow. There is mild hyperemia and warmth to touch but no renny erythema. There is no purulence within the olecranon bursa. There is a palpable effusion in his elbow joint. There is exquisite pain with any passive range of motion of the elbow. 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 - Labs Labs: Abnormal Lab Results - Last 24 Hours (Table) 09/05/22 09/05/22 09/05/22 Range/Units 01:14 01:14 01:14 WBC (3.8-10.6) k/uL Hct (39.0-53.0) % Plt Count 130 L (150-450) k/uL Lymphocytes # (1.0-4.8) k/uL PT 12.8 H (9.0-12.0) sec INR 1.2 H (<1.2) D-Dimer 0.76 H (<0.60) mg/L FEU VBG pCO2 (37-51) mmHg VBG HCO3 (24-28) mmol/L Sodium 135 L (137-145) mmol/L Potassium 3.3 L (3.5-5.1) mmol/L Carbon Dioxide 16 L (22-30) mmol/L BUN 3 L (9-20) mg/dL Creatinine 0.53 L (0.66-1.25) mg/dL Glucose 218 H (74-99) mg/dL POC Glucose (mg/dL) (70-110) mg/dL Hemoglobin A1c (0.0-6.0) % Plasma Lactic Acid Adrian (0.7-2.0) mmol/L Magnesium 1.3 L (1.6-2.3) mg/dL Total Bilirubin 1.6 H (0.2-1.3) mg/dL 09/05/22 09/05/22 09/05/22 Range/Units 01:14 04:57 04:57 WBC (3.8-10.6) k/uL Hct (39.0-53.0) % Plt Count (150-450) k/uL Lymphocytes # (1.0-4.8) k/uL PT (9.0-12.0) sec INR (<1.2) D-Dimer (<0.60) mg/L FEU VBG pCO2 (37-51) mmHg VBG HCO3 (24-28) mmol/L Sodium (137-145) mmol/L Potassium (3.5-5.1) mmol/L Carbon Dioxide (22-30) mmol/L BUN (9-20) mg/dL Creatinine (0.66-1.25) mg/dL Glucose (74-99) mg/dL POC Glucose (mg/dL) (70-110) mg/dL Hemoglobin A1c 6.6 H (0.0-6.0) % Plasma Lactic Acid Adrian 2.9 H* 0.6 L (0.7-2.0) mmol/L Magnesium (1.6-2.3) mg/dL Total Bilirubin (0.2-1.3) mg/dL 09/05/22 09/05/22 09/05/22 Range/Units 05:01 12:10 12:55 WBC 3.6 L (3.8-10.6) k/uL Hct 38.7 L (39.0-53.0) % Plt Count 101 L (150-450) k/uL Lymphocytes # 0.6 L (1.0-4.8) k/uL PT (9.0-12.0) sec INR (<1.2) D-Dimer (<0.60) mg/L FEU VBG pCO2 (37-51) mmHg VBG HCO3 (24-28) mmol/L Sodium (137-145) mmol/L Potassium (3.5-5.1) mmol/L Carbon Dioxide (22-30) mmol/L BUN (9-20) mg/dL Creatinine (0.66-1.25) mg/dL Glucose (74-99) mg/dL POC Glucose (mg/dL) 169 H 155 H (70-110) mg/dL Hemoglobin A1c (0.0-6.0) % Plasma Lactic Acid Adrian (0.7-2.0) mmol/L Magnesium (1.6-2.3) mg/dL Total Bilirubin (0.2-1.3) mg/dL 09/05/22 09/05/22 09/05/22 Range/Units 12:55 12:55 15:23 WBC (3.8-10.6) k/uL Hct (39.0-53.0) % Plt Count (150-450) k/uL Lymphocytes # (1.0-4.8) k/uL PT (9.0-12.0) sec INR (<1.2) D-Dimer (<0.60) mg/L FEU VBG pCO2 33 L (37-51) mmHg VBG HCO3 21 L (24-28) mmol/L Sodium (137-145) mmol/L Potassium (3.5-5.1) mmol/L Carbon Dioxide 21 L (22-30) mmol/L BUN <2 L <2 L (9-20) mg/dL Creatinine 0.35 L 0.37 L (0.66-1.25) mg/dL Glucose 154 H 156 H (74-99) mg/dL POC Glucose (mg/dL) (70-110) mg/dL Hemoglobin A1c (0.0-6.0) % Plasma Lactic Acid Adrian (0.7-2.0) mmol/L Magnesium (1.6-2.3) mg/dL Total Bilirubin (0.2-1.3) mg/dL 09/05/22 09/05/22 09/05/22 Range/Units 16:00 17:11 18:08 WBC (3.8-10.6) k/uL Hct (39.0-53.0) % Plt Count (150-450) k/uL Lymphocytes # (1.0-4.8) k/uL PT (9.0-12.0) sec INR (<1.2) D-Dimer (<0.60) mg/L FEU VBG pCO2 (37-51) mmHg VBG HCO3 (24-28) mmol/L Sodium (137-145) mmol/L Potassium (3.5-5.1) mmol/L Carbon Dioxide (22-30) mmol/L BUN (9-20) mg/dL Creatinine (0.66-1.25) mg/dL Glucose (74-99) mg/dL POC Glucose (mg/dL) 151 H 151 H 166 H (70-110) mg/dL Hemoglobin A1c (0.0-6.0) % Plasma Lactic Acid Adrian (0.7-2.0) mmol/L Magnesium (1.6-2.3) mg/dL Total Bilirubin (0.2-1.3) mg/dL H & H 09/05/22 09/05/22 Range/Units 01:14 12:55 Hgb 15.0 13.1 (13.0-17.5) gm/dL Hct 44.2 38.7 L (39.0-53.0) % Coagulation 09/05/22 Range/Units 01:14 INR 1.2 H (<1.2) Result Diagrams: 09/05/22 12:55 09/05/22 15:23 Assessment and Plan Plan: The patient's elbow was aspirated this evening and 3 mL's of cloudy yellow fluid consistent with crystalline arthropathy was aspirated. This was sent to the lab for crystal analysis, cell count with differential, and cultures. If this comes back positive for gout I will defer medical treatment to the primary service given his complicated medical history. We also discussed an intra- articular corticosteroid injection. While I have a low index of suspicion that this is infection given his history of gout and the appearance of the fluid if it does come back positive for infection he would need an irrigation and danny ridement of the elbow. Procedure: We'll consent for right elbow aspiration was obtained. The skin over the anconeus triangle With alcohol and ChloraPrep swab. Using sterile technique an 18-gauge needle was inserted into the elbow joint and 3 mL's of cloudy yellow fluid was aspirated. The needle was withdrawn and a Band-Aid was applied. The fluid was transferred over to Vacutainer tubes, labeled, and sent to the lab
[2022-09-05 18:39] LABS: Glucose,Whole Blood 160 mg/dL (70-110)
[2022-09-05 19:06] LABS: Glucose,Whole Blood 108 mg/dL (70-110)
[2022-09-05 19:38] LABS: Appearance,BF Cloudy; Nucleated Cells, Body Fluid 25000 /uL; RBC, Body Fluid 1700 /uL
[2022-09-05 19:46] LABS: Mononuclear WBC,Body Fluid 8 %; Polynuclear WBC,Body Fluid 92 %; Total Cells Counted,Body Fluid 200
[2022-09-05 19:57] LABS: Glucose,Whole Blood 66 mg/dL (70-110)
[2022-09-05 20:17] LABS: Glucose,Whole Blood 65 mg/dL (70-110)
[2022-09-05 20:27] LABS: Glucose,Whole Blood 79 mg/dL (70-110)
[2022-09-05 20:39] LABS: African American GFR (CKD) >90 (>60 ml/min/1.73 sqM); Anion Gap 9 mmol/L; Blood Urea Nitrogen <2 mg/dL (9-20); Carbon Dioxide 24 mmol/L (22-30); Chloride 104 mmol/L (98-107); Glucose 68 mg/dL (74-99); Non-African American GFR(CKD) >90 (>60 ml/min/1.73 sqM); Potassium 2.9 mmol/L (3.5-5.1); Sodium 137 mmol/L (137-145)
[2022-09-05] MEDS ORDERED: Phosphorus Replacement Protoco 1 EACH MISC MISCELLANE PRN (20:44)
[2022-09-05] MEDS: THIAMINE 100 MG/ML 2 ML VIAL IVP SCH (20:45)
[2022-09-05 20:58] LABS: Glucose,Whole Blood 95 mg/dL (70-110)
[2022-09-05] MEDS ORDERED: THIAMINE 100 MG in SODIUM CHLORIDE 0.9% 50 ML IVPB SCH (21:00)
[2022-09-05] MEDS ORDERED: SODIUM PHOSPHATE 30 MMOL in DEXTROSE 5% IN WATER 250 ML IVPB ONE ×2 (21:00)
[2022-09-05] MEDS: POTASSIUM CHLORIDE 20 MEQ in WATER FOR INJECTION 1 100ML.BAG IVPB SCH ×2 (21:50→23:37)
[2022-09-05 21:56] LABS: Glucose,Whole Blood 134 mg/dL (70-110)
[2022-09-06] MEDS: INSULIN DETEMIR (LEVEMIR) 100 UNIT/ML SYR SQ SCH (00:11)
[2022-09-06] MEDS: HEPARIN SODIUM,PORCINE/PF 5,000 UNIT/0.5 ML SYRINGE SQ SCH ×3 (00:12→17:52)
[2022-09-06] MEDS: ONDANSETRON 4 MG/2 ML VIAL IVP PRN ×3 (00:15→21:02)
[2022-09-06] MEDS: SODIUM CHLORIDE 0.9% 1,000 ML IV SCH ×4 (00:18→20:46)
[2022-09-06] MEDS ORDERED: SODIUM PHOSPHATE 30 MMOL in DEXTROSE 5% IN WATER 250 ML IVPB ONE ×2 (01:00)
[2022-09-06] MEDS: POTASSIUM CHLORIDE 20 MEQ in WATER FOR INJECTION 1 100ML.BAG IVPB SCH (02:02)
[2022-09-06] MEDS: HYDROmorphone 0.5 MG/0.5 ML SYRINGE IVP PRN (04:17)
[2022-09-06 05:58] LABS: Glucose,Whole Blood 129 mg/dL (70-110)
[2022-09-06] MEDS: INSULIN ASPART (NovoLOG) 100 UNIT/ML VIAL SQ SCH ×4 (06:24→20:46)
[2022-09-06] MEDS: VANCOMYCIN 2,000 MG in SODIUM CHLORIDE 0.9% 500 ML 500 ML IVPB SCH ×3 (06:27→20:58)
[2022-09-06] MEDS ORDERED: SODIUM CHLORIDE 0.9% 1,000 ML IV ONE (07:00)
[2022-09-06 08:36] LABS: African American GFR (CKD) >90 (>60 ml/min/1.73 sqM); Anion Gap 11 mmol/L; Blood Urea Nitrogen <2 mg/dL (9-20); Calcium 7.5 mg/dL (8.4-10.2); Carbon Dioxide 21 mmol/L (22-30); Chloride 105 mmol/L (98-107); Glucose 122 mg/dL (74-99); Magnesium 1.6 mg/dL (1.6-2.3); Non-African American GFR(CKD) >90 (>60 ml/min/1.73 sqM); Phosphorus 4.4 mg/dL (2.5-4.5); Potassium 3.6 mmol/L (3.5-5.1); Sodium 137 mmol/L (137-145)
[2022-09-06] MEDS ORDERED: Potassium Replacement Protocol 1 EACH MISC MISCELLANE PRN (08:47)
[2022-09-06] MEDS: COLCHICINE 0.6 MG EACH PO SCH ×2 (09:05→20:53)
[2022-09-06] MEDS: METOPROLOL SUCCINATE (ER) 25 MG TAB.ER.24H PO SCH (09:05)
[2022-09-06] MEDS: SUCRALFATE 1 GM TAB PO SCH ×2 (09:05→20:52)
[2022-09-06] MEDS: POTASSIUM CHLORIDE ER 20 MEQ TAB.ER PO SCH ×3 (09:05→17:52)
[2022-09-06] MEDS: MAGNESIUM SULFATE-D5W PMX 1 GM in DEXTROSE/WATER 1 100ML.BAG IVPB SCH ×2 (09:06→13:02)
[2022-09-06] MEDS: THIAMINE 100 MG/ML 2 ML VIAL IVP SCH ×2 (09:06→21:23)
[2022-09-06 12:16] LABS: Glucose,Whole Blood 141 mg/dL (70-110)
--- NOTE | 2022-09-06 12:26 | FL ---
EXAMINATION TYPE: FL UGI DATE OF EXAM: 09/06/2022 COMPARISON: 06/18/[address] 08/08/2022 HISTORY: 31-year-old male abnormal CT, atypical chest pain, assess for gastric leak. TECHNIQUE: A single contrast UGI study is performed utilizing a total of 2 mL Isovue-370. Total fluoroscopy time: 2 minutes 31 seconds. Total images: 25. Total data: 773.7 FINDINGS: The patient was nauseous throughout the entire exam and could only tolerate 2 small swallows. We note prompt passage of contrast along the esophagus with subsequent passage into the stomach. There is fi lling of what appears to be an end to side gastrojejunostomy with filling of both the blind end as we ll as the Lydia-en-Y limb. No obstruction is seen. Given the limitation of only 2 small swallows, no obvious leak is seen. IMPRESSION: The patient was nauseous throughout the exam and could only tolerate 2 small swallows. No obvious ibeth k or obstruction is identified. There appears to be an end to side gastrojejunostomy.
--- NOTE | 2022-09-06 12:58 | P.PN ---
Subjective Progress Note Date: 09/06/22 Patient is examined bedside this morning with Dr. Black. Right elbow was aspirated yesterday evening. Synovial fluid show no crystals. Patient states his right elbow feels very slightly improved today, although his left elbow has started to become painful today. There are no additional complaints. Objective - Vital Signs Vital signs: Vital Signs Temp 98.3 F 09/06/22 08:00 Pulse 85 09/06/22 08:00 Resp 18 09/06/22 08:00 BP 103/66 09/06/22 08:00 Pulse Ox 95 09/06/22 08:00 FiO2 Intake & Output 09/05/22 09/06/22 09/06/22 18:59 06:59 18:59 Intake Total 620 14.296 Output Total 575 Balance 620 -560.704 Weight 136.985 kg 136.985 kg Intake: IV 500 Intake, IV Titration 14.296 Amount Insulin Regular 100 unit 14.296 In Sodium Chloride 0.9% 100 ml @ 0.1 UNITS/KG/HR 13.835 mls/hr IV .Q7H19M [facility] Rx#:[id number] Oral 120 Output: Urine 575 Other: # Voids 1 0 - Exam On examination, patient is sitting up in bed in no apparent distress. He is alert and orientated x3. On inspection of the right elbow, there is a bandaid in place where aspiration was performed. There is mild swelling, mild warmth. No erythema. No pus. Motor and sensory function intact RUE. RUE warm and well perfused. - Labs CBC & Chem 7: 09/05/22 12:55 09/06/22 06:03 Labs: Abnormal Lab Results - Last 24 Hours (Table) 09/05/22 09/05/22 09/05/22 Range/Units 12:55 12:55 12:55 WBC 3.6 L (3.8-10.6) k/uL Hct 38.7 L (39.0-53.0) % Plt Count 101 L (150-450) k/uL Lymphocytes # 0.6 L (1.0-4.8) k/uL VBG pCO2 33 L (37-51) mmHg VBG HCO3 21 L (24-28) mmol/L Potassium (3.5-5.1) mmol/L Carbon Dioxide 21 L (22-30) mmol/L BUN <2 L (9-20) mg/dL Creatinine 0.35 L (0.66-1.25) mg/dL Glucose 154 H (74-99) mg/dL POC Glucose (mg/dL) (70-110) mg/dL Calcium (8.4-10.2) mg/dL Phosphorus (2.5-4.5) mg/dL 09/05/22 09/05/22 09/05/22 Range/Units 15:23 16:00 17:11 WBC (3.8-10.6) k/uL Hct (39.0-53.0) % Plt Count (150-450) k/uL Lymphocytes # (1.0-4.8) k/uL VBG pCO2 (37-51) mmHg VBG HCO3 (24-28) mmol/L Potassium (3.5-5.1) mmol/L Carbon Dioxide (22-30) mmol/L BUN <2 L (9-20) mg/dL Creatinine 0.37 L (0.66-1.25) mg/dL Glucose 156 H (74-99) mg/dL POC Glucose (mg/dL) 151 H 151 H (70-110) mg/dL Calcium (8.4-10.2) mg/dL Phosphorus (2.5-4.5) mg/dL 09/05/22 09/05/22 09/05/22 Range/Units 18:08 18:37 19:56 WBC (3.8-10.6) k/uL Hct (39.0-53.0) % Plt Count (150-450) k/uL Lymphocytes # (1.0-4.8) k/uL VBG pCO2 (37-51) mmHg VBG HCO3 (24-28) mmol/L Potassium (3.5-5.1) mmol/L Carbon Dioxide (22-30) mmol/L BUN (9-20) mg/dL Creatinine (0.66-1.25) mg/dL Glucose (74-99) mg/dL POC Glucose (mg/dL) 166 H 160 H 66 L (70-110) mg/dL Calcium (8.4-10.2) mg/dL Phosphorus (2.5-4.5) mg/dL 09/05/22 09/05/22 09/05/22 Range/Units 20:09 20:10 21:55 WBC (3.8-10.6) k/uL Hct (39.0-53.0) % Plt Count (150-450) k/uL Lymphocytes # (1.0-4.8) k/uL VBG pCO2 (37-51) mmHg VBG HCO3 (24-28) mmol/L Potassium 2.9 L (3.5-5.1) mmol/L Carbon Dioxide (22-30) mmol/L BUN <2 L (9-20) mg/dL Creatinine 0.33 L (0.66-1.25) mg/dL Glucose 68 L (74-99) mg/dL POC Glucose (mg/dL) 65 L 134 H (70-110) mg/dL Calcium (8.4-10.2) mg/dL Phosphorus 2.0 L (2.5-4.5) mg/dL 09/06/22 09/06/22 09/06/22 Range/Units 05:57 06:03 12:13 WBC (3.8-10.6) k/uL Hct (39.0-53.0) % Plt Count (150-450) k/uL Lymphocytes # (1.0-4.8) k/uL VBG pCO2 (37-51) mmHg VBG HCO3 (24-28) mmol/L Potassium (3.5-5.1) mmol/L Carbon Dioxide 21 L (22-30) mmol/L BUN <2 L (9-20) mg/dL Creatinine 0.42 L (0.66-1.25) mg/dL Glucose 122 H (74-99) mg/dL POC Glucose (mg/dL) 129 H 141 H (70-110) mg/dL Calcium 7.5 L (8.4-10.2) mg/dL Phosphorus (2.5-4.5) mg/dL Microbiology - Last 24 Hours (Table) 09/05/22 18:29 Gram Stain - Preliminary Synovial Fluid Body Fluid Culture - Preliminary Assessment and Plan Assessment: Right elbow pain, swelling Possible acute gout flare Inflammatory synovitis History of gout in lower extremities Plan: - Synovial fluid analysis show no crystals, nucleated cell count 25,000. Cultures are currently pending. Patient's right elbow symptoms may be related to an inflammatory synovitis, although there is strong clinical suspicion for an acute flare despite negative crystals on aspiration. Concern for infection is very low at this time. Recommend patient be treated with oral NSAID or steroids per primary team. We will continue to follow cultures closely. If they are negative, a cortisone injection into the right elbow may be considered if symptoms persist. We will follow patient peripherally at this time and make recommendations as needed.
--- NOTE | 2022-09-06 15:11 | P.PN ---
Subjective Progress Note Date: 09/06/22 CHIEF COMPLAINT: Dysphagia and abdominal pain HISTORY OF PRESENT ILLNESS: Patient is status post EGD with dilation. Patient complains of nausea today and stomach pains. He is having flatus. No bowel mov ement. His magnesium and that potassium have been replaced. Afebrile. Sodium 137 potassium is up from 2.9-3.6 creatinine 0.4 to glucose 141 A1c 6.6 and Mg 1.3 up to 1.6 upper GI report states patient was nauseous throughout the exam and currently tolerating to small swallows. No obvious leak or obstruction identified. There appears to be an and to side gastrojejunostomy. PHYSICAL EXAM: VITAL SIGNS: Reviewed GENERAL: Well-developed in no acute distress. HEENT: No sclera icterus. Extraocular movements grossly intact. Moist buccal mucosa. Head is atraumatic, normocephalic. Hears conversational speech. No nasal drainage. NECK: Supple without lymphadenopathy. CHEST: Non-labored respirations and equal bilateral excursions. CARDIOVASCULAR: Palpable 2+ radial pulses. ABDOMEN: Soft. Nondistended. MUSCULOSKELETAL: No clubbing or cyanosis. NEUROLOGIC: No focal or lateralizing signs. Cranial nerves II through XII grossly intact. PSYCH: Appropriate affect. Alert and oriented to person, place and time. SKIN: Well perfused. Good skin turgor. ASSESSMENT: Dysphagia status post EGD with dilation s/p Lydia-en-y gastric bypass. Nausea with vomiting. Morbid obesity. Diabetes type 2. Gastrojejunal stricture without chronic ulcer without perforation Gastritis Hypomagnesemia Hypokalemia PLAN: -Patient started on a dysphagia chopped diet -Continue Carafate -Magnesium being replaced -Continue supportive -Continue IV fluid Physician Research Physician note has been reviewed by physician. Signing provider agrees with the documented findings, assessment, and plan of care. Objective - Vital Signs Vital signs: Vital Signs Temp 98.3 F 09/06/22 08:00 Pulse 93 09/06/22 12:00 Resp 18 09/06/22 08:00 BP 114/60 09/06/22 12:00 Pulse Ox 97 09/06/22 12:00 FiO2 Intake & Output 09/05/22 09/06/22 09/06/22 18:59 06:59 18:59 Intake Total 620 14.296 Output Total 575 Balance 620 -560.704 Weight 136.985 kg 136.985 kg Intake: IV 500 Intake, IV Titration 14.296 Amount Insulin Regular 100 unit 14.296 In Sodium Chloride 0.9% 100 ml @ 0.1 UNITS/KG/HR 13.835 mls/hr IV .Q7H19M [facility] Rx#:[id number] Oral 120 Output: Urine 575 Other: # Voids 1 0 - Labs CBC & Chem 7: 09/05/22 12:55 09/06/22 06:03 Labs: Abnormal Lab Results - Last 24 Hours (Table) 09/05/22 09/05/22 09/05/22 Range/Units 15:23 16:00 17:11 Potassium (3.5-5.1) mmol/L Carbon Dioxide (22-30) mmol/L BUN <2 L (9-20) mg/dL Creatinine 0.37 L (0.66-1.25) mg/dL Glucose 156 H (74-99) mg/dL POC Glucose (mg/dL) 151 H 151 H (70-110) mg/dL Calcium (8.4-10.2) mg/dL Phosphorus (2.5-4.5) mg/dL 09/05/22 09/05/22 09/05/22 Range/Units 18:08 18:37 19:56 Potassium (3.5-5.1) mmol/L Carbon Dioxide (22-30) mmol/L BUN (9-20) mg/dL Creatinine (0.66-1.25) mg/dL Glucose (74-99) mg/dL POC Glucose (mg/dL) 166 H 160 H 66 L (70-110) mg/dL Calcium (8.4-10.2) mg/dL Phosphorus (2.5-4.5) mg/dL 09/05/22 09/05/22 09/05/22 Range/Units 20:09 20:10 21:55 Potassium 2.9 L (3.5-5.1) mmol/L Carbon Dioxide (22-30) mmol/L BUN <2 L (9-20) mg/dL Creatinine 0.33 L (0.66-1.25) mg/dL Glucose 68 L (74-99) mg/dL POC Glucose (mg/dL) 65 L 134 H (70-110) mg/dL Calcium (8.4-10.2) mg/dL Phosphorus 2.0 L (2.5-4.5) mg/dL 09/06/22 09/06/22 09/06/22 Range/Units 05:57 06:03 12:13 Potassium (3.5-5.1) mmol/L Carbon Dioxide 21 L (22-30) mmol/L BUN <2 L (9-20) mg/dL Creatinine 0.42 L (0.66-1.25) mg/dL Glucose 122 H (74-99) mg/dL POC Glucose (mg/dL) 129 H 141 H (70-110) mg/dL Calcium 7.5 L (8.4-10.2) mg/dL Phosphorus (2.5-4.5) mg/dL Microbiology - Last 24 Hours (Table) 09/05/22 18:29 Gram Stain - Preliminary Synovial Fluid Body Fluid Culture - Preliminary
--- NOTE | 2022-09-06 15:52 | P.PN ---
Subjective Progress Note Date: 09/06/22 This is a 31 year old male who has medical history of recent gastric bypass with laproscopic cholecystectomy, hypertension, diabetes. Patient was recently admitted to the hospital from 07/31/22 to 08/09/22 for dehydration and chest pain status post gastric bypass. During that admission patient underwent la proscopic cholecystectomy and was also evaluated by orthopedics for likely gout attack to the right great toe. Patient presents to the hospital this admission with complaints of chest pain that started around 0500 reported as left sided and shooting. Patient also reports dizziness and room spinning with blurry vision. Patient does admit to nausea and vomiting. No fever or chills. Additionally patient has pain and tenderness to the right elbow which is red warm and tender and there is possibly bursitis. Work up reveals platelet count of 130, D-Dimer of 0.76, sodium 135, potassium 3.3, blood glucose elevated at 169, magnesium 1.3. Troponin level is negative x 3. Patient is found to be acetone positive and anion gap of 20. Patient had CT angiography completed of the chest abdomen and pelvis which reveals no evidence of aneurysm or dissection of the aorta, there are naty-en-Y gastric bypass changes with 3.2 x 4.0 x 4.8 cm cystic mass adjacent to greater curvature staple line which is favored to relelate to the sequelae of prior surgery. No evidence of bowel obstruction. No other acute findings. Poorly diagnostic pulmonary arteries secondary to bolus timing and motion, there is no pulmonary embolism in the pulmonary outflow tract. General surgery has been consulted and patient will be taken for upper endoscopy. Orthopedics will be consulted for evaluation of right elbow and likely patient will need aspiration if there bursitis. Unable to use medication like toradol or steroids patient does have chronic gastritis. Patient will be started on DKA protocol for management of ketoacidosis. Currently he is NPO. 09/06/2022 Patient is evaluated today on medical floor. He has been taken off the insulin gtt and currently on sliding scale insulin with 7 units of long acting. Patient reports intermittent episodes of left sided chest pain reports as feeling like a nerve pain shooting across left chest. He does report being at [facility] ER on friday and heart rate up in the 180s. EKG reviewed and heart rate reported as 111 sinus tachycardia. No arrhythmia noted. Patient underwent EGD with dilation secondary to esophageal stricture and also had gastritis. He continues on shaq nix and carafate. He had upper GI done today showing no obvious leak or obstruction. There appears to be filling of possible end to side gastrojejunostomy with filling of blind ende and the naty-en-y end. He continues with persistent nausea and was only able to tolerate 2 small swallows. Patient does report no bowel movement for the last 14 days. He underwent aspiration of right elbow yesterday by orthopedics and cultures are pending. Continues on IV vancomycin. His labs today showing sodium of 137, potassium 3.6, BUN 2, creatinine 0.42. Blood glucose 141. Magnesium 1.6. Review of Systems Constitutional: Denied any fatigue denied any fever. Cardio vascular: denied any chest pain, palpitations Gastrointestinal: Reports nausea. No BM for 14 days. Pulmonary: Denied any shortness of breath cough Neurologic denied any new focal deficits All inpatient medications were reviewed and appropriate changes in these medications as dictated in the interval history and assessment and plan. PHYSICAL EXAMINATION: GENERAL: The patient is alert and oriented x3, not in any acute distress. Well developed, well nourished. HEENT: Pupils are round and equally reacting to light. EOMI. No scleral icterus. No conjunctival pallor. Normocephalic, atraumatic. No pharyngeal erythema. No thyromegaly. Lips are dry and chapped. CARDIOVASCULAR: S1 and S2 present. No murmurs, rubs, or gallops. PULMONARY: Chest is clear to auscultation, no wheezing or crackles. ABDOMEN: Soft, nontender, nondistended, normoactive bowel sounds. No palpable organomegaly. MUSCULOSKELETAL: Right elbow is swollen red and painful to touch. Less red today. EXTREMITIES: No cyanosis, clubbing, or pedal edema. NEUROLOGICAL: Gross neurological examination did not reveal any focal deficits. SKIN: No rashes. Assessment and Plan Assesment Chest pain rule out ACS, chest pain is likely from gastritis, cardiology has been consulted Right elbow pain/redness/swelling rule out bursitis infectious vs. inflammatory possibly also inflammatory arthritis. Mobility is significantly affected. Diabetic ketoacidosis resolved and off insulin gtt Nausea and vomiting Hypertension currently normotensive Sinus tachycardia Elevated D-Dimer CTA negative for pulmonary embolism Hypokalemia, hypomagnesemia likely from poor oral intake Diabetes Mellitus type 2 Recent laproscopic cholecystectomy History of Naty en Y gastric bypass in March of 2022 with dysphagia and stricture postoperatively which required dilation History of tachycardia started on beta tika History of gout History of asthma Morbid Obesity GI prophylaxis DVT prophylaxis Full Code Plan General surgery consultation Cardiology consultation, patient is on beta tika Right elbow aspirate culture pending continues on IV antibiotics Continue with blood glucose monitoring Pain management and antiemetics Replace electrolytes per protocol Repeat labs in AM The impression and plan of care has been dictated by Silva Cook, Nurse Practitioner as directed. Dr. Dangelo MD I have performed a history and physical examination and medical decision making of this patient, discussed the same with the dictator, and agree with the dictators assessment and plan as written, documented as a scribe. Based on total visit time, I have performed more than 50% of this visit. Objective - Vital Signs Vital signs: Vital Signs Temp 98 F 09/06/22 04:00 Pulse 84 09/06/22 04:00 Resp 18 09/06/22 04:00 BP 130/94 09/06/22 04:00 Pulse Ox 98 09/06/22 04:00 FiO2 Intake & Output 09/05/22 09/06/22 09/06/22 18:59 06:59 18:59 Intake Total 620 14.296 Output Total 575 Balance 620 -560.704 Weight 136.985 kg Intake: IV 500 Intake, IV Titration 14.296 Amount Insulin Regular 100 unit 14.296 In Sodium Chloride 0.9% 100 ml @ 0.1 UNITS/KG/HR 13.835 mls/hr IV .[id number] [facility] Rx#:[id number] Oral 120 Output: Urine 575 Other: # Voids 1 0 - Labs CBC & Chem 7: 09/05/22 12:55 09/06/22 06:03 Labs: Abnormal Lab Results - Last 24 Hours (Table) 09/05/22 09/05/22 09/05/22 Range/Units 12:10 12:55 12:55 WBC 3.6 L (3.8-10.6) k/uL Hct 38.7 L (39.0-53.0) % Plt Count 101 L (150-450) k/uL Lymphocytes # 0.6 L (1.0-4.8) k/uL VBG pCO2 (37-51) mmHg VBG HCO3 (24-28) mmol/L Potassium (3.5-5.1) mmol/L Carbon Dioxide 21 L (22-30) mmol/L BUN <2 L (9-20) mg/dL Creatinine 0.35 L (0.66-1.25) mg/dL Glucose 154 H (74-99) mg/dL POC Glucose (mg/dL) 155 H (70-110) mg/dL Calcium (8.4-10.2) mg/dL Phosphorus (2.5-4.5) mg/dL 09/05/22 09/05/22 09/05/22 Range/Units 12:55 15:23 16:00 WBC (3.8-10.6) k/uL Hct (39.0-53.0) % Plt Count (150-450) k/uL Lymphocytes # (1.0-4.8) k/uL VBG pCO2 33 L (37-51) mmHg VBG HCO3 21 L (24-28) mmol/L Potassium (3.5-5.1) mmol/L Carbon Dioxide (22-30) mmol/L BUN <2 L (9-20) mg/dL Creatinine 0.37 L (0.66-1.25) mg/dL Glucose 156 H (74-99) mg/dL POC Glucose (mg/dL) 151 H (70-110) mg/dL Calcium (8.4-10.2) mg/dL Phosphorus (2.5-4.5) mg/dL 09/05/22 09/05/22 09/05/22 Range/Units 17:11 18:08 18:37 WBC (3.8-10.6) k/uL Hct (39.0-53.0) % Plt Count (150-450) k/uL Lymphocytes # (1.0-4.8) k/uL VBG pCO2 (37-51) mmHg VBG HCO3 (24-28) mmol/L Potassium (3.5-5.1) mmol/L Carbon Dioxide (22-30) mmol/L BUN (9-20) mg/dL Creatinine (0.66-1.25) mg/dL Glucose (74-99) mg/dL POC Glucose (mg/dL) 151 H 166 H 160 H (70-110) mg/dL Calcium (8.4-10.2) mg/dL Phosphorus (2.5-4.5) mg/dL 09/05/22 09/05/22 09/05/22 Range/Units 19:56 20:09 20:10 WBC (3.8-10.6) k/uL Hct (39.0-53.0) % Plt Count (150-450) k/uL Lymphocytes # (1.0-4.8) k/uL VBG pCO2 (37-51) mmHg VBG HCO3 (24-28) mmol/L Potassium 2.9 L (3.5-5.1) mmol/L Carbon Dioxide (22-30) mmol/L BUN <2 L (9-20) mg/dL Creatinine 0.33 L (0.66-1.25) mg/dL Glucose 68 L (74-99) mg/dL POC Glucose (mg/dL) 66 L 65 L (70-110) mg/dL Calcium (8.4-10.2) mg/dL Phosphorus 2.0 L (2.5-4.5) mg/dL 09/05/22 09/06/22 09/06/22 Range/Units 21:55 05:57 06:03 WBC (3.8-10.6) k/uL Hct (39.0-53.0) % Plt Count (150-450) k/uL Lymphocytes # (1.0-4.8) k/uL VBG pCO2 (37-51) mmHg VBG HCO3 (24-28) mmol/L Potassium (3.5-5.1) mmol/L Carbon Dioxide 21 L (22-30) mmol/L BUN <2 L (9-20) mg/dL Creatinine 0.42 L (0.66-1.25) mg/dL Glucose 122 H (74-99) mg/dL POC Glucose (mg/dL) 134 H 129 H (70-110) mg/dL Calcium 7.5 L (8.4-10.2) mg/dL Phosphorus (2.5-4.5) mg/dL Microbiology - Last 24 Hours (Table) 09/05/22 18:29 Gram Stain - Preliminary Synovial Fluid Body Fluid Culture - Preliminary Assessment and Plan Time with Patient: Less than 30
[2022-09-06 16:58] LABS: Glucose,Whole Blood 116 mg/dL (70-110)
[2022-09-06 18:02] LABS: Amorphous Sediment,Urine Rare /hpf; Appearance,Urine Cloudy (Clear); Bacteria,Urine Few /hpf; Bilirubin,Urine Negative (Negative); Blood,Urine Negative (Negative); Color,Urine Yellow; Glucose,Urine (UA) Negative (Negative); Granular Casts,Urine 1 /lpf (0); Ketones,Urine 2+ (Negative); Leukocyte Esterase,Urine Negative (Negative); Mucus,Urine Rare /hpf; Nitrite,Urine Negative (Negative); PH, Urine 5.5 (5.0-8.0); Protein,Urine Trace (Negative); RBC,Urine <1 /hpf (0-5); Specific Gravity,Urine 1.009 (1.001-1.035); Urobilinogen,Urine <2.0 mg/dL (<2.0); WBC,Urine <1 /hpf (0-5)
[2022-09-06 20:21] LABS: Glucose,Whole Blood 123 mg/dL (70-110)
[2022-09-06] MEDS: LORATADINE-PSEUDOEPH 5-120 MG 1 EACH TAB.ER.12H PO SCH (20:53)
[2022-09-07] MEDS: HEPARIN SODIUM,PORCINE/PF 5,000 UNIT/0.5 ML SYRINGE SQ SCH ×4 (01:03→23:58)
[2022-09-07] MEDS: COLCHICINE 0.6 MG EACH PO SCH ×3 (01:05→22:37)
[2022-09-07] MEDS ORDERED: VANCOMYCIN TROUGH DUE 1 EACH MISC MISCELLANE ONE (05:00)
[2022-09-07 05:59] LABS: Glucose,Whole Blood 111 mg/dL (70-110)
[2022-09-07] MEDS: INSULIN ASPART (NovoLOG) 100 UNIT/ML VIAL SQ SCH ×4 (06:01→21:28)
[2022-09-07] MEDS: INSULIN DETEMIR (LEVEMIR) 100 UNIT/ML SYR SQ SCH ×2 (06:01→22:35)
[2022-09-07] MEDS: SODIUM CHLORIDE 0.9% 1,000 ML IV SCH ×2 (06:02→17:53)
[2022-09-07] MEDS: VANCOMYCIN 2,000 MG in SODIUM CHLORIDE 0.9% 500 ML 500 ML IVPB SCH ×2 (06:02→17:57)
[2022-09-07 06:11] LABS: African American GFR (CKD) >90 (>60 ml/min/1.73 sqM); Anion Gap 10 mmol/L; Blood Urea Nitrogen <2 mg/dL (9-20); Calcium 7.6 mg/dL (8.4-10.2); Carbon Dioxide 22 mmol/L (22-30); Chloride 109 mmol/L (98-107); Glucose 109 mg/dL (74-99); Magnesium 1.7 mg/dL (1.6-2.3); Non-African American GFR(CKD) >90 (>60 ml/min/1.73 sqM); Potassium 3.3 mmol/L (3.5-5.1); Sodium 141 mmol/L (137-145)
[2022-09-07] MEDS: ONDANSETRON 4 MG/2 ML VIAL IVP PRN ×2 (06:19→17:51)
[2022-09-07] MEDS ORDERED: POTASSIUM BICARBONATE/CIT AC 20 MEQ TABLET.EFF PO ONE (09:00)
[2022-09-07] MEDS ORDERED: MAGNESIUM SULFATE-D5W PMX 1 GM in DEXTROSE/WATER 1 100ML.BAG IVPB ONE (11:00)
[2022-09-07 11:06] LABS: Glucose,Whole Blood 109 mg/dL (70-110)
[2022-09-07] MEDS: SUCRALFATE 1 GM TAB PO SCH ×2 (11:08→21:20)
[2022-09-07] MEDS: LORATADINE-PSEUDOEPH 5-120 MG 1 EACH TAB.ER.12H PO SCH ×2 (11:10→22:36)
[2022-09-07] MEDS: METOPROLOL SUCCINATE (ER) 25 MG TAB.ER.24H PO SCH (11:13)
[2022-09-07] MEDS: THIAMINE 100 MG/ML 2 ML VIAL IVP SCH ×2 (11:14→22:36)
[2022-09-07] MEDS ORDERED: METOCLOPRAMIDE 5 MG/ML 2 ML VIAL IVP PRN (14:44)
--- NOTE | 2022-09-07 14:47 | P.PN ---
Subjective Progress Note Date: 09/07/22 This is a 31 year old male who has medical history of recent gastric bypass with laproscopic cholecystectomy, hypertension, diabetes. Patient was recently admitted to the hospital from 07/31/22 to 08/09/22 for dehydration and chest pain status post gastric bypass. During that admission patient underwent la proscopic cholecystectomy and was also evaluated by orthopedics for likely gout attack to the right great toe. Patient presents to the hospital this admission with complaints of chest pain that started around 0500 reported as left sided and shooting. Patient also reports dizziness and room spinning with blurry vision. Patient does admit to nausea and vomiting. No fever or chills. Additionally patient has pain and tenderness to the right elbow which is red warm and tender and there is possibly bursitis. Work up reveals platelet count of 130, D-Dimer of 0.76, sodium 135, potassium 3.3, blood glucose elevated at 169, magnesium 1.3. Troponin level is negative x 3. Patient is found to be acetone positive and anion gap of 20. Patient had CT angiography completed of the chest abdomen and pelvis which reveals no evidence of aneurysm or dissection of the aorta, there are naty-en-Y gastric bypass changes with 3.2 x 4.0 x 4.8 cm cystic mass adjacent to greater curvature staple line which is favored to relelate to the sequelae of prior surgery. No evidence of bowel obstruction. No other acute findings. Poorly diagnostic pulmonary arteries secondary to bolus timing and motion, there is no pulmonary embolism in the pulmonary outflow tract. General surgery has been consulted and patient will be taken for upper endoscopy. Orthopedics will be consulted for evaluation of right elbow and likely patient will need aspiration if there bursitis. Unable to use medication like toradol or steroids patient does have chronic gastritis. Patient will be started on DKA protocol for management of ketoacidosis. Currently he is NPO. 09/06/2022 Patient is evaluated today on medical floor. He has been taken off the insulin gtt and currently on sliding scale insulin with 7 units of long acting. Patient reports intermittent episodes of left sided chest pain reports as feeling like a nerve pain shooting across left chest. He does report being at [facility] ER on friday and heart rate up in the 180s. EKG reviewed and heart rate reported as 111 sinus tachycardia. No arrhythmia noted. Patient underwent EGD with dilation secondary to esophageal stricture and also had gastritis. He continues on shaq nix and carafate. He had upper GI done today showing no obvious leak or obstruction. There appears to be filling of possible end to side gastrojejunostomy with filling of blind ende and the naty-en-y end. He continues with persistent nausea and was only able to tolerate 2 small swallows. Patient does report no bowel movement for the last 14 days. He underwent aspiration of right elbow yesterday by orthopedics and cultures are pending. Continues on IV vancomycin. His labs today showing sodium of 137, potassium 3.6, BUN 2, creatinine 0.42. Blood glucose 141. Magnesium 1.6. 09/07/2022 Patient is evaluated today resting in bed. States he continues to have issues with swallowing and fullness after small amount of oral intake. Reports that chest discomfort has resolved. Troponins have been trended and negative x 3, EKG showing sinus tachycardia. Synovial fluid culture is pending. Patient continues on IV vancomycin. Does have some clinical improvement although unable to tolerate anti inflammatory mediation. He has persistent nausea. He has not had a bowel movement. Potassium 3.3 today, magnesium 1.7. Review of Systems Constitutional: Denied any fatigue denied any fever. Cardio vascular: denied any chest pain, palpitations Gastrointestinal: Reports nausea. No BM for 14 days. Pulmonary: Denied any shortness of breath cough Neurologic denied any new focal deficits All inpatient medications were reviewed and appropriate changes in these medications as dictated in the interval history and assessment and plan. PHYSICAL EXAMINATION: GENERAL: The patient is alert and oriented x3, not in any acute distress. Well developed, well nourished. Obese. HEENT: Pupils are round and equally reacting to light. EOMI. No scleral icterus. No conjunctival pallor. Normocephalic, atraumatic. No pharyngeal erythema. No thyromegaly. Lips are dry and chapped. CARDIOVASCULAR: S1 and S2 present. No murmurs, rubs, or gallops. PULMONARY: Chest is clear to auscultation, no wheezing or crackles. ABDOMEN: Soft, nontender, nondistended, normoactive bowel sounds. No palpable organomegaly. MUSCULOSKELETAL: Right elbow is swollen red and painful to touch. Less red today. EXTREMITIES: No cyanosis, clubbing, or pedal edema. NEUROLOGICAL: Gross neurological examination did not reveal any focal deficits. SKIN: No rashes. Assessment and Plan Assesment Chest pain rule out ACS, chest pain is likely from gastritis, cardiology has been consulted Right elbow pain/redness/swelling rule out bursitis infectious vs. inflammatory possibly also inflammatory arthritis. Mobility is significantly affected. 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 without perforation Hypertension currently normotensive Sinus tachycardia Elevated D-Dimer CTA negative for pulmonary embolism Hypokalemia, hypomagnesemia likely from poor oral intake Diabetes Mellitus type 2 Recent laproscopic cholecystectomy History of Naty en Y gastric bypass in March of 2022 with dysphagia and stricture postoperatively which required dilation History of tachycardia started on beta tika History of gout History of asthma Morbid Obesity GI prophylaxis DVT prophylaxis Full Code Plan General surgery consultation Cardiology consultation, patient is on beta tika Right elbow aspirate culture pending continues on IV antibiotics patient would benefit from steroid injection to right elbow joint Continue with blood glucose monitoring Pain management and antiemetics Bowel regimen in place dulcolax suppository recommended daily and until patient has BM. Dysphagia ground diet Replace electrolytes per protocol Repeat labs in AM The impression and plan of care has been dictated by Silva Cook, Nurse Practitioner as directed. Dr. Dangelo MD I have performed a history and physical examination and medical decision making of this patient, discussed the same with the dictator, and agree with the dictators assessment and plan as written, documented as a scribe. Based on total visit time, I have performed more than 50% of this visit. Objective - Vital Signs Vital signs: Vital Signs Temp 98.6 F 09/07/22 08:00 Pulse 120 H 09/07/22 12:37 Resp 20 09/07/22 08:00 BP 139/80 09/07/22 12:37 Pulse Ox 97 09/07/22 08:00 FiO2 Intake & Output 09/06/22 09/07/22 09/07/22 18:59 06:59 18:59 Output Total 800 750 Balance -800 -750 Weight 136.985 kg Output: Urine 800 750 Other: Voiding Method Urinal - Labs CBC & Chem 7: 09/05/22 12:55 09/07/22 05:28 Labs: Abnormal Lab Results - Last 24 Hours (Table) 09/05/22 09/06/22 09/06/22 Range/Units 02:26 16:57 20:20 Potassium (3.5-5.1) mmol/L Chloride (98-107) mmol/L BUN (9-20) mg/dL Glucose (74-99) mg/dL POC Glucose (mg/dL) 116 H 123 H (70-110) mg/dL Calcium (8.4-10.2) mg/dL Urine Protein Trace H (Negative) Urine Ketones 2+ H (Negative) Amorphous Sediment Rare H (None) /hpf Urine Bacteria Few H (None) /hpf Urine Mucus Rare H (None) /hpf 09/07/22 09/07/22 Range/Units 05:28 05:57 Potassium 3.3 L (3.5-5.1) mmol/L Chloride 109 H (98-107) mmol/L BUN <2 L (9-20) mg/dL Glucose 109 H (74-99) mg/dL POC Glucose (mg/dL) 111 H (70-110) mg/dL Calcium 7.6 L (8.4-10.2) mg/dL Urine Protein (Negative) Urine Ketones (Negative) Amorphous Sediment (None) /hpf Urine Bacteria (None) /hpf Urine Mucus (None) /hpf Microbiology - Last 24 Hours (Table) 09/05/22 18:29 Gram Stain - Preliminary Synovial Fluid Body Fluid Culture - Preliminary Assessment and Plan Time with Patient: Less than 30
[2022-09-07 16:15] LABS: Glucose,Whole Blood 101 mg/dL (70-110)
[2022-09-07] MEDS: bisacodyL 10 MG SUPP RECTAL SCH (17:45)
--- NOTE | 2022-09-07 20:22 | P.PN ---
Subjective Progress Note Date: 09/07/22 CHIEF COMPLAINT: Intractable nausea vomiting HISTORY OF PRESENT ILLNESS: The patient is a 31-year-old male admitted for supraventricular tachycardia, intractable nausea and vomiting. He complains of new bilateral lower abdominal pain is his last bowel movement was over 2 weeks ago. He reports chronic nausea due to mucus, postnasal drip. No reports of dysphagia. Patient reports poor appetite. He reports generalized weakness and generalized malaise. He reports improvement of right shoulder pain/elbow pain after drainage for gout. ROS: No bowel movements. No fevers or chills. No new chest pain. No productive sputum PHYSICAL EXAM: VITAL SIGNS: Reviewed CONSTITUTIONAL: Well developed and in no acute distress. EYES: Conjuctivae without sclera icterus. Extraocular movements grossly intact. HEAD, EARS, NOSE, THROAT: Moist buccal mucosa. Head is atraumatic, normocephalic. Hears conversational speech. No nasal drainage. RESPIRATORY: Non-labored respirations and equal bilateral excursions. CARDIOVASCULAR: Palpable 2+ radial pulses. ABDOMEN: Protuberant. No peritonitis. Minimal bilateral lower abdominal pain. MUSCULOSKELETAL: No gross deformity of the lower extremities noted. No clubbing. No cyanosis. SKIN: Good skin turgor. Well perfused. NEUROLOGIC: Cranial nerves II through XII grossly intact. No focal or lateralizing signs. PSYCH: Appropriate affect. Alert and oriented to person, place and time. CLINICAL LABS: Reviewed. Potassium with hypokalemia, 3.3. ASSESSMENT: 1. Bilateral lower abdominal pain 2. Persistent hypokalemia 3. Right elbow, gout 4. Morbid obesity due to excess calories, BMI 48.7 5. Status post gastric bypass 6. Supraventricular tachycardia 7. Severe constipation 8. Post nasal sinus drip PLAN: 1. Recommend correction of hypokalemia which exacerbates his chronic nausea 2. Claritin for postnasal sinus 3. He has severe constipation and would ideally benefit from laxative however due to his chronic nausea, oral laxatives on hold. 4. Patient reports multiple social issues and may benefit from social work management 5. Patient has pre-existing intolerance to oral steroids, IV steroids. Recommend steroid injection locally for gout Objective - Vital Signs Vital signs: Vital Signs Temp 98.6 F 09/07/22 08:00 Pulse 120 H 09/07/22 12:37 Resp 20 09/07/22 08:00 BP 139/80 09/07/22 12:37 Pulse Ox 97 09/07/22 08:00 FiO2 Intake & Output 09/07/22 09/07/22 09/08/22 06:59 18:59 07:59 Output Total 750 1300 Balance -750 -1300 Output: Urine 750 1300 Other: Voiding Method Urinal - Labs CBC & Chem 7: 09/05/22 12:55 09/07/22 05:28 Labs: Abnormal Lab Results - Last 24 Hours (Table) 09/06/22 09/07/22 09/07/22 Range/Units 20:20 05:28 05:57 Potassium 3.3 L (3.5-5.1) mmol/L Chloride 109 H (98-107) mmol/L BUN <2 L (9-20) mg/dL Glucose 109 H (74-99) mg/dL POC Glucose (mg/dL) 123 H 111 H (70-110) mg/dL Calcium 7.6 L (8.4-10.2) mg/dL Microbiology - Last 24 Hours (Table) 09/05/22 18:29 Gram Stain - Preliminary Synovial Fluid Body Fluid Culture - Preliminary
[2022-09-07] MEDS ORDERED: PANTOPRAZOLE 40 MG/10 ML VIAL IVP SCH (21:00)
[2022-09-07 21:04] LABS: Glucose,Whole Blood 127 mg/dL (70-110)
[2022-09-07] MEDS: ACETAMINOPHEN IV (For NPO) 1,000 MG in EMPTY BAG 1 BAG IVPB SCH (21:13)
[2022-09-07] MEDS: METOCLOPRAMIDE 5 MG/ML 2 ML VIAL IVP SCH (21:20)
[2022-09-07] MEDS: POTASSIUM CHLORIDE 10 MEQ in WATER FOR INJECTION 1 100ML.BAG IVPB SCH ×4 (21:21→22:44)
[2022-09-08] MEDS: METOCLOPRAMIDE 5 MG/ML 2 ML VIAL IVP SCH ×4 (03:26→21:52)
[2022-09-08] MEDS: ACETAMINOPHEN IV (For NPO) 1,000 MG in EMPTY BAG 1 BAG IVPB SCH ×3 (03:26→16:41)
[2022-09-08] MEDS: SCOPOLAMINE 1 MG/72 HR PATCH TRANSDERM SCH (05:50)
[2022-09-08] MEDS: VANCOMYCIN 2,000 MG in SODIUM CHLORIDE 0.9% 500 ML 500 ML IVPB SCH (05:51)
[2022-09-08] MEDS: SODIUM CHLORIDE 0.9% 1,000 ML IV SCH ×2 (05:52→13:13)
[2022-09-08 06:23] LABS: Glucose,Whole Blood 94 mg/dL (70-110)
[2022-09-08] MEDS: INSULIN ASPART (NovoLOG) 100 UNIT/ML VIAL SQ SCH ×4 (08:42→21:50)
[2022-09-08 08:56] LABS: Basophils # (A) 0.01 X 10*3/uL (0.00-0.10); Basophils % (A) 0.4 %; Eosinophils # (A) 0.07 X 10*3/uL (0.04-0.35); Eosinophils % (A) 2.5 %; HCT 37.5 % (39.6-50.0); HGB 12.2 g/dL (13.0-17.0); Immature Grans, Automated 0.4 %; Lymphocytes # (A) 0.83 X 10*3/uL (0.90-5.00); Lymphocytes % (A) 30.1 %; MCHC 32.5 g/dL (32.0-37.0); MCV 89.1 fL (80.0-97.0); Mean Platelet Volume 12.1 fL (9.5-12.2); Monocytes % (A) 18.1 %; NRBC Per 100 WBC 0 /100 WBCS (0.0-0.0); Neutrophils # (A) 1.34 X 10*3/uL (1.80-7.70); Neutrophils % (A) 48.5 %; Platelet Count 128 X 10*3/uL (140-440); RBC 4.21 X 10*6/uL (4.40-5.60); RDW 14.3 % (11.5-14.5); WBC 2.76 X 10*3/uL (4.50-10.00)
[2022-09-08 09:09] LABS: African American GFR (CKD) 65.1 (60.0-200.0); Anion Gap 10.9 mmol/L (10.00-18.00); BUN/Creat Ratio 1.56 Ratio (12.00-20.00); Blood Urea Nitrogen 2.5 mg/dL (9.0-27.0); Calcium 8.2 mg/dL (8.7-10.3); Carbon Dioxide 23.1 mmol/L (20.0-27.5); Magnesium 1.7 mg/dL (1.5-2.4); Non-African American GFR(CKD) 56.2 (60.0-200.0); Potassium 3.3 mmol/L (3.5-5.5)
[2022-09-08] MEDS: SUCRALFATE 1 GM TAB PO SCH ×2 (09:15→21:53)
[2022-09-08] MEDS: COLCHICINE 0.6 MG EACH PO SCH ×2 (09:15→21:50)
[2022-09-08] MEDS: bisacodyL 10 MG SUPP RECTAL SCH (09:15)
[2022-09-08] MEDS: METOPROLOL SUCCINATE (ER) 25 MG TAB.ER.24H PO SCH (09:16)
[2022-09-08] MEDS: LORATADINE-PSEUDOEPH 5-120 MG 1 EACH TAB.ER.12H PO SCH ×3 (09:21→21:51)
[2022-09-08] MEDS: HEPARIN SODIUM,PORCINE/PF 5,000 UNIT/0.5 ML SYRINGE SQ SCH ×2 (09:38→16:45)
[2022-09-08] MEDS: THIAMINE 100 MG/ML 2 ML VIAL IVP SCH ×2 (09:39→21:53)
[2022-09-08] MEDS: FLUTICASONE 50MCG/SPRAY NASAL 16GM EA NOSTRIL SCH (09:44)
[2022-09-08] MEDS ORDERED: methylPREDNISolone ACETATE 40 MG/ML 1 ML VIAL INTRAARTIC ONE (11:00)
[2022-09-08] MEDS ORDERED: LIDOCAINE 2% INJ 20 MG/ML (20 ML MDV) MISCELLANE ONE (11:00)
[2022-09-08 11:06] LABS: Glucose,Whole Blood 117 mg/dL (70-110)
--- NOTE | 2022-09-08 13:27 | P.PN ---
Subjective Progress Note Date: 09/08/22 Patient is examined bedside this afternoon with Dr. Black. Patient is re- evaluated today, as internal medicine has requested a cortisone injection into the right elbow. Patient states his elbow is feeling much better today. His pain has continued to improve over the past two days. No pain in the left elbow today. He is overall doing well. Objective - Vital Signs Vital signs: Vital Signs Temp 98.4 F 09/08/22 07:30 Pulse 101 H 09/08/22 07:30 Resp 16 09/08/22 07:30 BP 131/90 09/08/22 07:30 Pulse Ox 98 09/08/22 07:30 FiO2 Intake & Output 09/07/22 09/08/22 09/08/22 17:59 06:59 18:59 Output Total 800 Balance -800 Weight Output: Urine 800 Other: Voiding Method Toilet Urinal # Voids 1 # Bowel Movements - Exam On examination, patient is sitting up in bed in no apparent distress. He is alert and orientated x3. On inspection of the right elbow, there is mild swelling. No pain with PROM of the elbow. Mild warmth. No erythema. No pus. Motor and sensory function intact RUE. RUE warm and well perfused. - Labs CBC & Chem 7: 09/08/22 05:20 09/08/22 05:20 Labs: Abnormal Lab Results - Last 24 Hours (Table) 09/07/22 09/08/22 09/08/22 Range/Units 21:03 05:20 05:20 WBC 2.76 L (4.50-10.00) X 10*3/uL RBC 4.21 L (4.40-5.60) X 10*6/uL Hgb 12.2 L (13.0-17.0) g/dL Hct 37.5 L (39.6-50.0) % Plt Count 128 L (140-440) X 10*3/uL Neutrophils # 1.34 L (1.80-7.70) X 10*3/uL Lymphocytes # 0.83 L (0.90-5.00) X 10*3/uL Potassium 3.3 L (3.5-5.5) mmol/L BUN 2.5 L (9.0-27.0) mg/dL Creatinine 1.6 H (0.6-1.5) mg/dL Est GFR (CKD-EPI)NonAf 56.2 L (60.0-200.0) BUN/Creatinine Ratio 1.56 L (12.00-20.00) Ratio POC Glucose (mg/dL) 127 H (70-110) mg/dL Calcium 8.2 L (8.7-10.3) mg/dL 09/08/22 Range/Units 11:04 WBC (4.50-10.00) X 10*3/uL RBC (4.40-5.60) X 10*6/uL Hgb (13.0-17.0) g/dL Hct (39.6-50.0) % Plt Count (140-440) X 10*3/uL Neutrophils # (1.80-7.70) X 10*3/uL Lymphocytes # (0.90-5.00) X 10*3/uL Potassium (3.5-5.5) mmol/L BUN (9.0-27.0) mg/dL Creatinine (0.6-1.5) mg/dL Est GFR (CKD-EPI)NonAf (60.0-200.0) BUN/Creatinine Ratio (12.00-20.00) Ratio POC Glucose (mg/dL) 117 H (70-110) mg/dL Calcium (8.7-10.3) mg/dL Microbiology - Last 24 Hours (Table) 09/05/22 18:29 Gram Stain - Preliminary Synovial Fluid Body Fluid Culture - Preliminary Assessment and Plan Assessment: Right elbow pain, swelling. Improved s/p aspiration. Possible acute gout flare Inflammatory synovitis History of gout in lower extremities Plan: - We discussed a cortisone injection into the right elbow with the patient today. Patient's states his elbow pain has improved significantly following aspiration on . He is not interested in an injection at this time, which we believe is appropriate. We discussed his elbow pain should continue to improve with time. He may perform ROM of the elbow as tolerated. - Gout management per admitting team. - We will sign off at this time.
[2022-09-08] MEDS ORDERED: MAG HYDROX/AL HYDROX/SIMETH 30 ML CUP PO PRN (14:14)
--- NOTE | 2022-09-08 14:25 | P.PN ---
Subjective Progress Note Date: 09/08/22 This is a 31 year old male who has medical history of recent gastric bypass with laproscopic cholecystectomy, hypertension, diabetes. Patient was recently admitted to the hospital from 07/31/22 to 08/09/22 for dehydration and chest pain status post gastric bypass. During that admission patient underwent la proscopic cholecystectomy and was also evaluated by orthopedics for likely gout attack to the right great toe. Patient presents to the hospital this admission with complaints of chest pain that started around 0500 reported as left sided and shooting. Patient also reports dizziness and room spinning with blurry vision. Patient does admit to nausea and vomiting. No fever or chills. Additionally patient has pain and tenderness to the right elbow which is red warm and tender and there is possibly bursitis. Work up reveals platelet count of 130, D-Dimer of 0.76, sodium 135, potassium 3.3, blood glucose elevated at 169, magnesium 1.3. Troponin level is negative x 3. Patient is found to be acetone positive and anion gap of 20. Patient had CT angiography completed of the chest abdomen and pelvis which reveals no evidence of aneurysm or dissection of the aorta, there are naty-en-Y gastric bypass changes with 3.2 x 4.0 x 4.8 cm cystic mass adjacent to greater curvature staple line which is favored to relelate to the sequelae of prior surgery. No evidence of bowel obstruction. No other acute findings. Poorly diagnostic pulmonary arteries secondary to bolus timing and motion, there is no pulmonary embolism in the pulmonary outflow tract. General surgery has been consulted and patient will be taken for upper endoscopy. Orthopedics will be consulted for evaluation of right elbow and likely patient will need aspiration if there bursitis. Unable to use medication like toradol or steroids patient does have chronic gastritis. Patient will be started on DKA protocol for management of ketoacidosis. Currently he is NPO. 09/06/2022 Patient is evaluated today on medical floor. He has been taken off the insulin gtt and currently on sliding scale insulin with 7 units of long acting. Patient reports intermittent episodes of left sided chest pain reports as feeling like a nerve pain shooting across left chest. He does report being at [facility] ER on friday and heart rate up in the 180s. EKG reviewed and heart rate reported as 111 sinus tachycardia. No arrhythmia noted. Patient underwent EGD with dilation secondary to esophageal stricture and also had gastritis. He continues on shaq nix and carafate. He had upper GI done today showing no obvious leak or obstruction. There appears to be filling of possible end to side gastrojejunostomy with filling of blind ende and the naty-en-y end. He continues with persistent nausea and was only able to tolerate 2 small swallows. Patient does report no bowel movement for the last 14 days. He underwent aspiration of right elbow yesterday by orthopedics and cultures are pending. Continues on IV vancomycin. His labs today showing sodium of 137, potassium 3.6, BUN 2, creatinine 0.42. Blood glucose 141. Magnesium 1.6. 09/07/2022 Patient is evaluated today resting in bed. States he continues to have issues with swallowing and fullness after small amount of oral intake. Reports that chest discomfort has resolved. Troponins have been trended and negative x 3, EKG showing sinus tachycardia. Synovial fluid culture is pending. Patient continues on IV vancomycin. Does have some clinical improvement although unable to tolerate anti inflammatory mediation. He has persistent nausea. He has not had a bowel movement. Potassium 3.3 today, magnesium 1.7. 09/08/2022 Patient evaluated on medical floor today. Continues to report significant nausea with emesis. He did have 2 bowel movements yesterday. Vancomycin will be discontinued as this is probably contributing to nausea and there is low probabality of septic arthritis or bursitis as culture remains negative and patient clinically is improving with antiinflammatory medication. Potassium 3.3 today and will be replaced. Creatinine is up to 1.6 today. Continues on normal saline. He is hemodynamically stable and no further reports of chest discomfort. Review of Systems Constitutional: Denied any fatigue denied any fever. Cardio vascular: denied any chest pain, palpitations Gastrointestinal: Reports nausea and emesis. Pulmonary: Denied any shortness of breath cough Neurologic denied any new focal deficits All inpatient medications were reviewed and appropriate changes in these medications as dictated in the interval history and assessment and plan. PHYSICAL EXAMINATION: GENERAL: The patient is alert and oriented x3, not in any acute distress. Well developed, well nourished. Obese. HEENT: Pupils are round and equally reacting to light. EOMI. No scleral icterus. No conjunctival pallor. Normocephalic, atraumatic. No pharyngeal erythema. No thyromegaly. Lips are dry and chapped. CARDIOVASCULAR: S1 and S2 present. No murmurs, rubs, or gallops. PULMONARY: Chest is clear to auscultation, no wheezing or crackles. ABDOMEN: Soft, nontender, nondistended, normoactive bowel sounds. No palpable organomegaly. MUSCULOSKELETAL: Right elbow swelling redness and pain have improved. Patient has increased ROM. EXTREMITIES: No cyanosis, clubbing, or pedal edema. NEUROLOGICAL: Gross neurological examination did not reveal any focal deficits. SKIN: No rashes. Assessment and Plan Assesment Chest pain rule out ACS, chest pain is likely from gastritis Right elbow pain/redness/swelling likely inflammatory synovitis less likely infection as culture has remained negative and patient has improved with colchicine which will decreased to daily and likely can be stopped in a few days. Diabetic ketoacidosis resolved and off insulin gtt Intractible nausea Constipation improved Dysphagia status post EGD with Dilation Gastrojejunal stricture without chronic ulcer without perforation Hypertension currently normotensive Sinus tachycardia Elevated D-Dimer CTA negative for pulmonary embolism Hypokalemia, hypomagnesemia likely from poor oral intake Diabetes Mellitus type 2 Recent laproscopic cholecystectomy History of Naty en Y gastric bypass in March of 2022 with dysphagia and stricture postoperatively which required dilation History of tachycardia started on beta tika History of gout History of asthma Morbid Obesity GI prophylaxis DVT prophylaxis Full Code Plan General surgery consultation Cardiology consultation, patient is on beta tika Right elbow aspirate culture negative so far and antibiotics have been stopped at this time We will decrease colchicine to daily and likely this can be stopped in a few days as patient continues to improve with increased motility. Continue with blood glucose monitoring Pain management and antiemetics Dysphagia ground diet Replace electrolytes per protocol Repeat labs in AM The impression and plan of care has been dictated by Silva Cook, Nurse Practitioner as directed. Dr. Dangelo MD I have performed a history and physical examination and medical decision making of this patient, discussed the same with the dictator, and agree with the d ictators assessment and plan as written, documented as a scribe. Based on total visit time, I have performed more than 50% of this visit. Objective - Vital Signs Vital signs: Vital Signs Temp 98.0 F 09/08/22 12:00 Pulse 74 09/08/22 12:00 Resp 16 09/08/22 12:00 BP 132/84 09/08/22 12:00 Pulse Ox 99 09/08/22 12:00 FiO2 Intake & Output 09/07/22 09/08/22 09/08/22 17:59 06:59 18:59 Output Total 800 Balance -800 Weight Output: Urine 800 Other: Voiding Method Toilet Urinal # Voids 1 # Bowel Movements - Labs CBC & Chem 7: 09/08/22 05:20 09/08/22 05:20 Labs: Abnormal Lab Results - Last 24 Hours (Table) 09/07/22 09/08/22 09/08/22 Range/Units 21:03 05:20 05:20 WBC 2.76 L (4.50-10.00) X 10*3/uL RBC 4.21 L (4.40-5.60) X 10*6/uL Hgb 12.2 L (13.0-17.0) g/dL Hct 37.5 L (39.6-50.0) % Plt Count 128 L (140-440) X 10*3/uL Neutrophils # 1.34 L (1.80-7.70) X 10*3/uL Lymphocytes # 0.83 L (0.90-5.00) X 10*3/uL Potassium 3.3 L (3.5-5.5) mmol/L BUN 2.5 L (9.0-27.0) mg/dL Creatinine 1.6 H (0.6-1.5) mg/dL Est GFR (CKD-EPI)NonAf 56.2 L (60.0-200.0) BUN/Creatinine Ratio 1.56 L (12.00-20.00) Ratio POC Glucose (mg/dL) 127 H (70-110) mg/dL Calcium 8.2 L (8.7-10.3) mg/dL 09/08/22 Range/Units 11:04 WBC (4.50-10.00) X 10*3/uL RBC (4.40-5.60) X 10*6/uL Hgb (13.0-17.0) g/dL Hct (39.6-50.0) % Plt Count (140-440) X 10*3/uL Neutrophils # (1.80-7.70) X 10*3/uL Lymphocytes # (0.90-5.00) X 10*3/uL Potassium (3.5-5.5) mmol/L BUN (9.0-27.0) mg/dL Creatinine (0.6-1.5) mg/dL Est GFR (CKD-EPI)NonAf (60.0-200.0) BUN/Creatinine Ratio (12.00-20.00) Ratio POC Glucose (mg/dL) 117 H (70-110) mg/dL Calcium (8.7-10.3) mg/dL Microbiology - Last 24 Hours (Table) 09/05/22 18:29 Gram Stain - Preliminary Synovial Fluid Body Fluid Culture - Preliminary Assessment and Plan Time with Patient: Less than 30
[2022-09-08] MEDS ORDERED: POTASSIUM BICARBONATE/CIT AC 20 MEQ TABLET.EFF PO ONE ×2 (15:00→16:00)
[2022-09-08] MEDS ORDERED: MAGNESIUM SULFATE-D5W PMX 1 GM in DEXTROSE/WATER 1 100ML.BAG IVPB ONE (15:00)
[2022-09-08 16:07] LABS: Glucose,Whole Blood 104 mg/dL (70-110)
[2022-09-08] MEDS ORDERED: HEPARIN SODIUM 1,000 UN/ML (10ML VL) IV PRN (18:48)
[2022-09-08] MEDS ORDERED: HEPARIN SODIUM 1,000 UN/ML (10ML VL) IV ONE (18:48)
[2022-09-08] MEDS ORDERED: HEPARIN SOD,PORK IN 0.45% NACL 25,000 UNIT in 0.45% NACL 1 250ML.BAG IV SCH (19:00)
[2022-09-08 20:06] LABS: Glucose,Whole Blood 85 mg/dL (70-110)
--- NOTE | 2022-09-08 20:55 | P.PN ---
Subjective Progress Note Date: 09/08/22 CHIEF COMPLAINT: Intractable nausea vomiting HISTORY OF PRESENT ILLNESS: The patient is a 31-year-old male admitted for supraventricular tachycardia, intractable nausea and vomiting. He reports resolved lower abdominal pain. He had a bowel movement. He has decreased nausea and vomiting. He reports hallucinations since being on new medications and has trouble sleeping. He has decreased dysphagia. He refused treatment for his hypokalemia. ROS: No bowel movements. No fevers or chills. No new chest pain. No productive sputum PHYSICAL EXAM: VITAL SIGNS: Reviewed CONSTITUTIONAL: Well developed and in no acute distress. EYES: Conjuctivae without sclera icterus. Extraocular movements grossly intact. HEAD, EARS, NOSE, THROAT: Moist buccal mucosa. Head is atraumatic, normocephalic. Hears conversational speech. No nasal drainage. RESPIRATORY: Non-labored respirations and equal bilateral excursions. CARDIOVASCULAR: Palpable 2+ radial pulses. ABDOMEN: Protuberant. No peritonitis. MUSCULOSKELETAL: No gross deformity of the lower extremities noted. No clubbing. No cyanosis. SKIN: Good skin turgor. Well perfused. NEUROLOGIC: Cranial nerves II through XII grossly intact. No focal or lateralizing signs. PSYCH: Appropriate affect. Alert and oriented to person, place and time. CLINICAL LABS: Reviewed. Potassium with hypokalemia, 3.3. Creatinine elevated, 0.33 to 1.6. ASSESSMENT: 1. Bilateral lower abdominal pain 2. Persistent hypokalemia 3. Right elbow, gout 4. Morbid obesity due to excess calories, BMI 48.7 5. Status post gastric bypass 6. Supraventricular tachycardia 7. Severe constipation 8. Post nasal sinus drip 9. Hypokalemia 10. Acute renal failure PLAN: 1. Recommend discontinue vancomycin for acute renal failure 2. Seroquel prescribed for sleep aid. 3. Continue claritin for post nasal drip and nausea 4. Recommend correction of hypokalemia 5. No additional surgical intervention. Objective - Vital Signs Vital signs: Vital Signs Temp 97.8 F 09/08/22 19:29 Pulse 83 09/08/22 19:29 Resp 16 09/08/22 19:29 BP 144/95 09/08/22 19:29 Pulse Ox 99 09/08/22 19:29 FiO2 Intake & Output 09/08/22 09/08/22 09/09/22 06:59 18:59 06:59 Output Total 1300 Balance -1300 Weight Output: Urine 1300 Other: Voiding Method Toilet Urinal # Voids 1 # Bowel Movements - Labs CBC & Chem 7: 09/08/22 05:20 09/08/22 05:20 Labs: Abnormal Lab Results - Last 24 Hours (Table) 09/07/22 09/08/22 09/08/22 Range/Units 21:03 05:20 05:20 WBC 2.76 L (4.50-10.00) X 10*3/uL RBC 4.21 L (4.40-5.60) X 10*6/uL Hgb 12.2 L (13.0-17.0) g/dL Hct 37.5 L (39.6-50.0) % Plt Count 128 L (140-440) X 10*3/uL Neutrophils # 1.34 L (1.80-7.70) X 10*3/uL Lymphocytes # 0.83 L (0.90-5.00) X 10*3/uL D-Dimer (<0.60) mg/L FEU Potassium 3.3 L (3.5-5.5) mmol/L BUN 2.5 L (9.0-27.0) mg/dL Creatinine 1.6 H (0.6-1.5) mg/dL Est GFR (CKD-EPI)NonAf 56.2 L (60.0-200.0) BUN/Creatinine Ratio 1.56 L (12.00-20.00) Ratio POC Glucose (mg/dL) 127 H (70-110) mg/dL Calcium 8.2 L (8.7-10.3) mg/dL 09/08/22 09/08/22 Range/Units 11:04 17:31 WBC (4.50-10.00) X 10*3/uL RBC (4.40-5.60) X 10*6/uL Hgb (13.0-17.0) g/dL Hct (39.6-50.0) % Plt Count (140-440) X 10*3/uL Neutrophils # (1.80-7.70) X 10*3/uL Lymphocytes # (0.90-5.00) X 10*3/uL D-Dimer 0.62 H (<0.60) mg/L FEU Potassium (3.5-5.5) mmol/L BUN (9.0-27.0) mg/dL Creatinine (0.6-1.5) mg/dL Est GFR (CKD-EPI)NonAf (60.0-200.0) BUN/Creatinine Ratio (12.00-20.00) Ratio POC Glucose (mg/dL) 117 H (70-110) mg/dL Calcium (8.7-10.3) mg/dL Microbiology - Last 24 Hours (Table) 09/05/22 18:29 Gram Stain - Preliminary Synovial Fluid Body Fluid Culture - Preliminary
[2022-09-08] MEDS ORDERED: QUEtiapine 25 MG TAB PO SCH (21:00)
[2022-09-08] MEDS: INSULIN DETEMIR (LEVEMIR) 100 UNIT/ML SYR SQ SCH (21:51)
[2022-09-08] MEDS ORDERED: VANCOMYCIN 2,000 MG in SODIUM CHLORIDE 0.9% 500 ML 500 ML IVPB SCH (22:00)
[2022-09-09] MEDS: HEPARIN SODIUM,PORCINE/PF 5,000 UNIT/0.5 ML SYRINGE SQ SCH ×3 (00:01→17:17)
[2022-09-09] MEDS: SODIUM CHLORIDE 0.9% 1,000 ML IV SCH ×2 (00:02→09:16)
[2022-09-09] MEDS: METOCLOPRAMIDE 5 MG/ML 2 ML VIAL IVP SCH ×3 (03:31→17:22)
[2022-09-09 06:22] LABS: Glucose,Whole Blood 80 mg/dL (70-110)
[2022-09-09] MEDS: INSULIN ASPART (NovoLOG) 100 UNIT/ML VIAL SQ SCH ×3 (06:37→17:17)
[2022-09-09 08:34] VITALS: RESP 18
[2022-09-09] MEDS: bisacodyL 10 MG SUPP RECTAL SCH (09:07)
[2022-09-09] MEDS: COLCHICINE 0.6 MG EACH PO SCH (09:07)
[2022-09-09] MEDS: FLUTICASONE 50MCG/SPRAY NASAL 16GM EA NOSTRIL SCH (09:09)
[2022-09-09] MEDS: LORATADINE-PSEUDOEPH 5-120 MG 1 EACH TAB.ER.12H PO SCH (09:09)
[2022-09-09] MEDS: SUCRALFATE 1 GM TAB PO SCH (09:09)
[2022-09-09] MEDS: METOPROLOL SUCCINATE (ER) 25 MG TAB.ER.24H PO SCH (09:10)
[2022-09-09] MEDS: THIAMINE 100 MG/ML 2 ML VIAL IVP SCH (09:16)
[2022-09-09 09:19] LABS: African American GFR (CKD) 65.1 (60.0-200.0); Anion Gap 13.2 mmol/L (10.00-18.00); BUN/Creat Ratio 1.81 Ratio (12.00-20.00); Blood Urea Nitrogen 2.9 mg/dL (9.0-27.0); Calcium 7.8 mg/dL (8.7-10.3); Carbon Dioxide 21.8 mmol/L (20.0-27.5); Magnesium 1.5 mg/dL (1.5-2.4); Non-African American GFR(CKD) 56.2 (60.0-200.0)
[2022-09-09] MEDS: HYDROmorphone 0.5 MG/0.5 ML SYRINGE IVP PRN (09:32)
[2022-09-09] MEDS: MAGNESIUM SULFATE-D5W PMX 1 GM in DEXTROSE/WATER 1 100ML.BAG IVPB SCH ×2 (10:49→12:02)
[2022-09-09 11:33] LABS: Glucose,Whole Blood 104 mg/dL (70-110)
--- NOTE | 2022-09-09 11:50 | P.PN ---
Subjective Progress Note Date: 09/09/22 CHIEF COMPLAINT: Abdominal pain with nausea and vomiting HISTORY OF PRESENT ILLNESS: Patient is status post EGD with dilation. Patient continues to complain of nausea. He does reports having dry heaves. He does report having flatus and bowel movement. He reports improvement in the abdominal pain. He reports sleeping better. Afebrile. Sodium 143 potassium 3.0 creatinine 1.6 magnesium 1.5 PHYSICAL EXAM: VITAL SIGNS: Reviewed GENERAL: Well-developed in no acute distress. HEENT: No sclera icterus. Extraocular movements grossly intact. Moist buccal mucosa. Head is atraumatic, normocephalic. Hears conversational speech. No nasal drainage. NECK: Supple without lymphadenopathy. CHEST: Non-labored respirations and equal bilateral excursions. CARDIOVASCULAR: Palpable 2+ radial pulses. ABDOMEN: Soft. Nondistended. MUSCULOSKELETAL: No clubbing or cyanosis. NEUROLOGIC: No focal or lateralizing signs. Cranial nerves II through XII grossly intact. PSYCH: Appropriate affect. Alert and oriented to person, place and time. SKIN: Well perfused. Good skin turgor. ASSESSMENT: Dysphagia status post EGD with dilation s/p Lydia-en-y gastric bypass. Nausea with vomiting. Morbid obesity. Diabetes type 2. Gastrojejunal stricture without chronic ulcer without perforation Gastritis Hypomagnesemia Hypokalemia Acute kidney injury PLAN: -No surgical intervention planned -Medicine service correcting magnesium and potassium -Continue Carafate -Continue thiamine -Continue ground diet -Encourage patient to ambulate Physician [employer] note has been reviewed by physician. Signing provider agrees with the documented findings, assessment, and plan of care. Objective - Vital Signs Vital signs: Vital Signs Temp 98.0 F 09/09/22 07:23 Pulse 83 09/09/22 07:23 Resp 18 09/09/22 07:23 BP 113/78 09/09/22 07:23 Pulse Ox 94 L 09/09/22 07:23 FiO2 Intake & Output 09/08/22 09/09/22 09/09/22 18:59 06:59 18:59 Output Total 1300 Balance -1300 Weight 147 kg Output: Urine 1300 Other: Voiding Method Toilet Urinal # Voids 1 - Labs CBC & Chem 7: 09/08/22 05:20 09/09/22 05:58 Labs: Abnormal Lab Results - Last 24 Hours (Table) 09/08/22 09/09/22 Range/Units 17:31 05:58 D-Dimer 0.62 H (<0.60) mg/L FEU Potassium 3.0 L (3.5-5.5) mmol/L BUN 2.9 L (9.0-27.0) mg/dL Creatinine 1.6 H (0.6-1.5) mg/dL Est GFR (CKD-EPI)NonAf 56.2 L (60.0-200.0) BUN/Creatinine Ratio 1.81 L (12.00-20.00) Ratio Calcium 7.8 L (8.7-10.3) mg/dL Microbiology - Last 24 Hours (Table) 09/05/22 18:29 Gram Stain - Preliminary Synovial Fluid Body Fluid Culture - Preliminary
[2022-09-09 12:38] VITALS: BMI 52.2
[2022-09-09] MEDS: POTASSIUM BICARBONATE/CIT AC 20 MEQ TABLET.EFF PO SCH ×2 (13:53→17:24)
--- NOTE | 2022-09-09 16:23 | P.DS ---
Providers Date of admission: 09/05/22 04:51 Attending physician: Palomo Sharma MD Consults: 09/05/22 04:07 Consult Physician Routine Consulting Provider: Adolph Black Consult Reason/Comments: chest pain Do you want consulting provider notified?: Yes Consult Physician Routine Consulting Provider: Elzbieta Jenkins Consult Reason/Comments: cystic mass status post Naty-en-Y Do you want consulting provider notified?: Yes 09/05/22 12:37 Consult Physician Routine Consulting Provider: Oziel Black Consult Reason/Comments: right elbow rule out bursitis, possible aspiration Do you want consulting provider notified?: Yes Primary care physician: Primo Dickson [facility] Course: Final Diagnosis Chest pain rule out ACS, chest pain is likely from gastritis Right elbow pain/redness/swelling likely inflammatory synovitis less likely infection as culture has remained negative and patient has improved with colchicine. Acute kidney injury secondary to nephrotoxins, vanocmycin and colchicine are discontinued and creatinine is expected to improve. 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 He has been cleared by general surgery, cardiology for discharge. Patient recommended for close follow up with PCP Dr. Forman and also surgeon Dr. Jenkins on discharge. Patient is being discharged on metoprolol XL for elevated heart rate which is currently improved at this time. Additionally, he underwent EGD with dilation and found to have gastritis. Patient to continue on omeprazole BID, carafate TID, maalox as needed. Patient is also discharge on scopalomine patch to change every 72 hours and also zofran as needed. Patient to continue on dysphagia ground 2 diet and patient has been educated on restrictions and also given information on diet. Patient is noted to have elevated creatinine and he has been taken off the vancomycin and colchicine as he has had clinical improvement in his mobility and pain of the right elbow. Orthopedics will follow with patient in the office and recommend for steroid injection if symptoms return. Patient requires daily potassium and magnesium supplementation on discharge and this has been communicated. Recommend to increase activity as tolerated and to continue with incentive spirometer. Patient is given scripts to repeat BMP, CBC and magnesium in 2 to 3 days. Hospital Course This is a 31 year old male who has medical history of recent gastric bypass with laproscopic cholecystectomy, hypertension, diabetes. Patient was recently admitted to the hospital from 07/31/22 to 08/09/22 for dehydration and chest pain status post gastric bypass. During that admission patient underwent laproscopic cholecystectomy and also had esophageal dilation. Patient presents to the hospital this admission with complaints of chest pain that is reported as left sided and shooting. Patient also reports dizziness and room spinning with blurry vision. Patient does admit to nausea and vomiting. No fever or chills. Additionally patient has pain and tenderness to the right elbow which is red warm and tender and there is possibly bursitis. Work up reveals platelet count of 130, D-Dimer of 0.76, sodium 135, potassium 3.3, blood glucose elevated at 169, magnesium 1.3. Troponin level is negative x 3. Patient is found to be acetone positive and anion gap of 20. He was started on insulin gtt. Patient had CT angiography completed of the chest abdomen and pelvis which reveals no evidence of aneurysm or dissection of the aorta, there are naty-en-Y gastric bypass changes with 3.2 x 4.0 x 4.8 cm cystic mass adjacent to greater curvature staple line which is favored to relelate to the sequelae of prior surgery. No evidence of bowel obstruction. No other acute findings. Poorly diagnostic pulmonary arteries secondary to bolus timing and motion, there is no pulmonary embolism in the pulmonary outflow tract. General surgery has been consulted. Patient was recently evaluated at [facility] in the 3 days prior to admission for decreased oral intake nausea and vomiting and also patient reports no bowel movement in over 2 weeks. He was worked up for elevated heart rate which was increasing with activity and likely related to dehydration. EKG showing sinus tachycardia and cardiology evaluation in progress. He had negative troponin and likely the left sided chest pain is due to gastritis. Patient was taken for endoscopy which reveals stricture of approximately 12 mm and a resolved gastrojejunal ulceration. There is a 5 cm gastric pouch. Moderate gastritis along gastric pouch and biopsies were obtained. Patient did have successful balloon dilation of the stricture to 18 mm. He is continued on carafate, omeprazole and maalox was added due to ongoing nausea and emesis. He did have a bowel movement. He was continued on vancomycin and colchicine for the elbow inflammation and orthopedics evaluation. Patient improved clinically and right elbow was aspirated which is negative for crystals and felt a gout attack was unlikely. He had negative aspirate culture. He has improved mobility and redness/pain and swelling improved. Creatinine up to 1.6 and vancomycin and colchicine have been stopped and unlikely infection. Orthopedics will follow with the patient in the office and offer steroid injection if needed. Patient was started on toprol xl by cardiology and ruled out ACS and his heart rate did improve and currently normal sinus rhythm in the 70-80s. Patient was weaned to injectible insulin and continues on same home medications with above mentioned changes. He is tolerating diet. He is managing nausea and using incentive spirometer. He was evaluated by physical therapy. He has been cleared for discharge home. 09/09/2022 Patient is evaluated today sitting up at bedside. He did sleep last night after receiving a dose of seroquel. He appears fatigued today. He denies chest pain and denies shortness of breath. No emesis or diarrhea he does have intermittent and ongoing nausea. General surgery is aware and no further work up or procedures planned. Cleared for DC by general surgery. Cleared by cardiology and no further work up planned. Patients lungs are clear today, s1 s2 auscultated, regular rate and rhythm. Bowel sounds are active, nondistended and nontender. No cough noted. He is awake and alert x 3. Fatigued. Encouraged to ambulate and increase activity. His most recent labs are showing white count of 2.76, hgb 12.2, sodium 143, potassium 3.0, BUN 2.9, creatinine 1.6, glucose 104, calcium 7.8, magnesium 1.5, troponin negative and proBNP 996. He is afebrile, heart rate 83, blood pressure 124/80, 98% on room air. Total time taken in discharge planning greater than 35 minutes. Please see medication reconciliation for a list of current medication. Thank you for allowing us to participate in the care of this patient. The impression and plan of care has been dictated by Silva Cook, Nurse Practitioner as directed. Dr. Dangelo MD I have performed a history and physical examination and medical decision making of this patient, discussed the same with the dictator, and agree with the dictators assessment and plan as written, documented as a scribe. Based on total visit time, I have performed more than 50% of this visit. Patient Condition at Discharge: Stable Plan - Discharge Summary Discharge Rx Participant: Yes New Discharge Prescriptions: New Loratadine-Pseudoeph 5-120 mg [Claritin-D 12 Hour] 1 each PO Q12HR tab Fluticasone Nasal Pavillion [Flonase Nasal Pavillion] 2 spray EA NOSTRIL DAILY #1 each Magnesium Oxide [Mag-Ox] 400 mg PO DAILY #30 tablet Docusate [Colace] 100 mg PO DAILY #30 capsule Potassium Chloride [Klor-Con M20] 60 meq PO DAILY #90 tab Mag Hydrox/Al Hydrox/Simeth [Maalox] 20 ml PO QID PRN #250 ml PRN Reason: Nausea Metoprolol Succinate (ER) [Toprol XL] 25 mg PO DAILY #30 tab Thiamine [Vitamin B-1] 100 mg PO DAILY #30 tablet Ondansetron Odt [Zofran Odt] 4 mg PO Q8HR PRN #20 tab PRN Reason: Nausea Continue Insulin Glargine [Lantus Vial] 7 unit SQ HS Simethicone 40 mg/0.6 ml Drops [Mylicon Drops] 40 mg PO PCHS PRN #30 ml PRN Reason: gas Sucralfate [Carafate] 1 gm PO BID PRN PRN Reason: Gerd Omeprazole 40 mg PO BID PRN PRN Reason: Gerd Diclofenac Sodium Gel [Voltaren Gel] 4 gm TOPICAL QID PRN PRN Reason: Pain Metoclopramide [Reglan] 10 mg PO Q6H PRN PRN Reason: Nausea Acetaminophen Oral Susp [Tylenol] 650 mg PO Q4-6H PRN #480 ml PRN Reason: Pain Scopolamine [Scopolamine 1 MG/72 HR patch] 1 patch TRANSDERM Q72H PRN PRN Reason: Nausea Discharge Medication List Insulin Glargine [Lantus Vial] 7 unit SQ HS 07/14/22 [History] Acetaminophen Oral Susp [Tylenol] 650 mg PO Q4-6H PRN #480 ml 08/09/22 [Rx] Simethicone 40 mg/0.6 ml Drops [Mylicon Drops] 40 mg PO PCHS PRN #30 ml 08/09/22 [Rx] Diclofenac Sodium Gel [Voltaren Gel] 4 gm TOPICAL QID PRN 09/05/22 [History] Metoclopramide [Reglan] 10 mg PO Q6H PRN 09/05/22 [History] Omeprazole 40 mg PO BID PRN 09/05/22 [History] Scopolamine [Scopolamine 1 MG/72 HR patch] 1 patch TRANSDERM Q72H PRN 09/05/22 [History] Sucralfate [Carafate] 1 gm PO BID PRN 09/05/22 [History] Docusate [Colace] 100 mg PO DAILY #30 capsule 09/09/22 [Rx] Fluticasone Nasal Pavillion [Flonase Nasal Pavillion] 2 spray EA NOSTRIL DAILY #1 each 09/09/22 [Rx] Loratadine-Pseudoeph 5-120 mg [Claritin-D 12 Hour] 1 each PO Q12HR tab 09/09/22 [Rx] Mag Hydrox/Al Hydrox/Simeth [Maalox] 20 ml PO QID PRN #250 ml 09/09/22 [Rx] Magnesium Oxide [Mag-Ox] 400 mg PO DAILY #30 tablet 09/09/22 [Rx] Metoprolol Succinate (ER) [Toprol XL] 25 mg PO DAILY #30 tab 09/09/22 [Rx] Ondansetron Odt [Zofran Odt] 4 mg PO Q8HR PRN #20 tab 09/09/22 [Rx] Potassium Chloride [Klor-Con M20] 60 meq PO DAILY #90 tab 09/09/22 [Rx] Thiamine [Vitamin B-1] 100 mg PO DAILY #30 tablet 09/09/22 [Rx] Follow up Appointment(s)/Referral(s): Elzbieta Jenkins MD [STAFF PHYSICIAN] - 1 Week Primo Forman DO [Primary Care Provider] - 1-2 Days Oziel Black MD [Medical Doctor] - As Needed Ambulatory/Diagnostic Orders: Basic Metabolic Panel [LAB.AMB] Time Frame: 3 Days, Location: None Selected Complete Blood Count w/diff [LAB.AMB] Time Frame: 3 Days, Location: None Selected Magnesium [LAB.AMB] Time Frame: 3 Days, Location: None Selected Patient Instructions/Handouts: Level 2 National Dysphagia Diet (DC), Esophageal Dilation (DC), Nutrition after Bariatric Surgery (DC) Activity/Diet/Wound Care/Special Instructions: Recommend to continue on dysphagia ground 2 diet and diabetic diet Continue on potassium 60 meq daily - take 2 tablets or 40 meq in the am and take 20 meq 1 tablet at bedtime. Oral potassium is not covered by your insurance and may require prior authorization and recommend to discuss with your primary provider on follow up. Continue magnesium 400 mg daily Recommend to repeat labs in 2 to 3 days to monitor electrolytes and kidney function. It is important to take these medications daily Recommend to continue on metoprolol for tachycardia and follow up with cardiology as needed. Follow up with general surgery Continue antiemetics and also continue on omeprazole twice a day, carafate three times a day and also maalox has been sent in as needed for GI upset as well. Continue to use incentive spirometer 10 x an hour while awake. Increase activity as tolerated. Continue on bowel regimen and stool softener to avoid constipation. Discharge Disposition: HOME SELF-CARE
[2022-09-09 16:37] LABS: Glucose,Whole Blood 89 mg/dL (70-110)
[2022-09-09 17:26] VITALS: BP 142/97; PULSE 82; TEMP 98.4
[2022-09-10 15:06] LABS: Synovial Fld Crystals None Seen (None Seen)
== END 2022-09-09 18:42 | disposition home or self-care (01) | DRG 391 ==
LOC: EC 00:49 → OBSVTOIN 04:51 → 6NMEDSUR 04:51 → 3SCARD 16:57 → 4SSUR 09-07 07:56
PROVIDERS: ADMIT Internal Medicine; ATTEND Internal Medicine
PROC: 0R9L3ZX Drainage of Right Elbow Joint, Percutaneous Approach, Diagnostic (ICD-10-PCS; 2022-09-05)
PROC: 0D768DZ Dilation of Stomach with Intraluminal Device, Via Natural or Artificial Opening Endoscopic (ICD-10-PCS; principal; 2022-09-05 07:30)
PROC: 0D7A8DZ Dilation of Jejunum with Intraluminal Device, Via Natural or Artificial Opening Endoscopic (ICD-10-PCS; 2022-09-05 07:30)
DX: K29.70 Gastritis, unspecified, without bleeding (principal); E11.10 Type 2 diabetes mellitus with ketoacidosis without coma; K95.89 Other complications of other bariatric procedure; N17.9 Acute kidney failure, unspecified; I47.1 Supraventricular tachycardia; Z68.42 Body mass index [BMI] 45.0-49.9, adult; N14.19 Nephropathy induced by other drugs, medicaments and biological substances; T36.8X5A Adverse effect of other systemic antibiotics, initial encounter; T50.4X5A Adverse effect of drugs affecting uric acid metabolism, initial encounter; E66.01 Morbid (severe) obesity due to excess calories; K59.00 Constipation, unspecified; E11.21 Type 2 diabetes mellitus with diabetic nephropathy; E83.42 Hypomagnesemia; K21.9 Gastro-esophageal reflux disease without esophagitis; E87.6 Hypokalemia; Y84.8 Other medical procedures as the cause of abnormal reaction of the patient, or of later complication, without mention of misadventure at the time of the procedure; G47.33 Obstructive sleep apnea (adult) (pediatric); I10 Essential (primary) hypertension; M10.9 Gout, unspecified; Z79.4 Long term (current) use of insulin; Z87.11 Personal history of peptic ulcer disease
CPT/HCPCS: 36415; 43239; 43249; 71275; 74174; 74240; 80048; 80051; 80053; 80202; 80320; 81001; 82009; 82565; 82803; 82947; 83036; 83605; 83690; 83735; 83880; 84100; 84425; 84443; 84484; 84520; 85025; 85379; 85610; 85730; 87070; 87205; 88305; 89050; 89060; 93005; 94760; 96361; 96374; 96375; 96376; 99285

== ENCOUNTER → 2022-09-18 | Outpatient (CLI) | payer OTHER ==
[~2022-09-18] MED LIST changes: -ONDANSETRON 4 MG/2 ML VIAL IVP STA; -SODIUM CHLORIDE 0.9% 1,000 ML IV ONE; +SODIUM CHLORIDE 0.9% 2,000 ML IV NR; +SODIUM CHLORIDE 0.9% 500 ML 500 ML in EMPTY BAG 1 BAG IV PRN
[2022-09-18 12:21] VITALS: BP 112/81; PULSE 83; RESP 16; TEMP 98.1
== END ==
LOC: PROCWHC3 12:05
PROVIDERS: ATTEND Surgery Plastic and Reconstructive Surgery
DX: E86.0 Dehydration (principal); Z88.0 Allergy status to penicillin
CPT/HCPCS: 96360; 96361

== ENCOUNTER 2022-10-23 12:56 | Emergency (ER) | payer OTHER ==
[2022-10-23] MEDS ORDERED: SODIUM CHLORIDE 0.9% 2,000 ML IV STA (13:28)
[2022-10-23 13:58] LABS: Basophils % (A) 0 %; Eosinophils # (A) 0.1 k/uL (0-0.7); Eosinophils % (A) 2 %; HCT 37.8 % (39.0-53.0); HGB 13.1 gm/dL (13.0-17.5); Lymphocytes % (A) 23 %; MCH 29.8 pg (25.0-35.0); MCHC 34.7 g/dL (31.0-37.0); Mean Platelet Volume 8.7; Monocytes # (A) 0.4 k/uL (0-1.0); Monocytes % (A) 9 %; Neutrophils # (A) 2.6 k/uL (1.3-7.7); Neutrophils % (A) 63 %; RDW 14.6 % (11.5-15.5); WBC 4.1 k/uL (3.8-10.6)
[2022-10-23 14:09] LABS: Platelet Count 180 k/uL (150-450)
--- NOTE | 2022-10-23 14:12 | ED ---
Nausea/Vomiting/Diarrhea HPI - General Source: patient, RN notes reviewed Mode of arrival: ambulatory Limitations: no limitations <Sd Freitas - Last Filed: 10/23/22 14:30> <Romain Mak - Last Filed: 10/23/22 17:32> - General Chief complaint: Nausea/Vomiting/Diarrhea Stated complaint: dehydration Time Seen by Provider: 10/23/22 13:28 - History of Present Illness Initial comments: 32-year-old male presents emergency Department with chief complaint of dehydration. Patient is status post gastric bypass states that he's been having recurrent issues with dehydration states he is feeling he was given behind her fluids to presented today. He has had small patient hydration and the past. Patient denies any chest pain he has had some elevated heart rates in which is followed by cardiology. Patient denies any fevers or chills no dysuria states occasionally his toe has some nausea and vomiting. (Sd Freitas) - Related Data Home Medications Medication Instructions Recorded Confirmed Metoprolol Succinate (ER) [Toprol 25 mg PO DAILY PRN 10/23/22 10/23/22 XL] Previous Rx's Medication Instructions Recorded Ondansetron Odt [Zofran Odt] 4 mg PO Q8HR PRN #20 tab 09/09/22 Allergies Allergy/AdvReac Type Severity Reaction Status Date / Time Penicillins Allergy Rash/Hives, Verified 10/23/22 16:41 Difficulty breathing Review of Systems ROS Other: All systems not noted in ROS Statement are negative. <Sd Freitas - Last Filed: 10/23/22 14:30> ROS Other: All systems not noted in ROS Statement are negative. <Romain Mak - Last Filed: 10/23/22 17:32> ROS Statement: Those systems with pertinent positive or pertinent negative responses have been documented in the HPI. Past Medical History Past Medical History: Asthma, Chest Pain / Angina, Diabetes Mellitus, GERD/Reflux, Hypertension Additional Past Medical History / Comment(s): "high heart rate" - February 2020,. gout. RECENT INPT FOR DEHYDRATION-07/31/22-08/09/22 History of Any Multi-Drug Resistant Organisms: None Reported Past Surgical History: Bariatric Surgery, Cholecystectomy Additional Past Surgical History / Comment(s): lip surgery from dog bite as a child, Gastric Bypass 06/17/22. cardioversion feb 2020 Past Anesthesia/Blood Transfusion Reactions: No Reported Reaction Past Psychological History: No Psychological Hx Reported Smoking Status: Never smoker Past Alcohol Use History: None Reported Past Drug Use History: None Reported - Past Family History Mother Family Medical History: No Reported History <Sd Freitas - Last Filed: 10/23/22 14:30> General Exam Limitations: no limitations General appearance: alert, in no apparent distress Head exam: Present: atraumatic, normocephalic, normal inspection Eye exam: Present: normal appearance, PERRL, EOMI. Absent: scleral icterus, conjunctival injection, periorbital swelling ENT exam: Present: normal exam, normal oropharynx, mucous membranes moist Neck exam: Present: normal inspection, full ROM. Absent: tenderness, meningismus, lymphadenopathy Respiratory exam: Present: normal lung sounds bilaterally. Absent: respiratory distress, wheezes, rales, rhonchi, stridor Cardiovascular Exam: Present: normal rhythm, tachycardia, normal heart sounds. Absent: systolic murmur, diastolic murmur, rubs, gallop, clicks GI/Abdominal exam: Present: soft, normal bowel sounds. Absent: distended, tenderness, guarding, rebound, rigid Neurological exam: Present: alert <Sd Freitas - Last Filed: 10/23/22 14:30> Course Vital Signs 10/23/22 13:19 Temperature 98.1 F Pulse Rate 115 H Respiratory 18 Rate Blood Pressure 136/98 O2 Sat by Pulse 99 Oximetry Medical Decision Making - Lab Data Result diagrams: 10/23/22 13:39 10/23/22 13:39 - EKG Data -: EKG Interpreted by [place] <Sd Freitas - Last Filed: 10/23/22 14:30> - Lab Data Result diagrams: 10/23/22 13:39 10/23/22 13:39 <Romain Mak - Last Filed: 10/23/22 17:32> - Lab Data Lab Results 10/23/22 10/23/22 Range/Units 13:39 13:39 WBC 4.1 (3.8-10.6) k/uL RBC 4.40 (4.30-5.90) m/uL Hgb 13.1 (13.0-17.5) gm/dL Hct 37.8 L (39.0-53.0) % MCV 86.0 (80.0-100.0) fL MCH 29.8 (25.0-35.0) pg MCHC 34.7 (31.0-37.0) g/dL RDW 14.6 (11.5-15.5) % Plt Count 180 D (150-450) k/uL MPV 8.7 Neutrophils % 63 % Lymphocytes % 23 % Monocytes % 9 % Eosinophils % 2 % Basophils % 0 % Neutrophils # 2.6 (1.3-7.7) k/uL Lymphocytes # 1.0 (1.0-4.8) k/uL Monocytes # 0.4 (0-1.0) k/uL Eosinophils # 0.1 (0-0.7) k/uL Basophils # 0.0 (0-0.2) k/uL Sodium 135 L (137-145) mmol/L Potassium 3.6 (3.5-5.1) mmol/L Chloride 96 L (98-107) mmol/L Carbon Dioxide 21 L (22-30) mmol/L Anion Gap 18 mmol/L BUN 10 (9-20) mg/dL Creatinine 0.96 (0.66-1.25) mg/dL Est GFR (CKD-EPI)AfAm >90 (>60 ml/min/1.73 sqM) Est GFR (CKD-EPI)NonAf >90 (>60 ml/min/1.73 sqM) Glucose 110 H (74-99) mg/dL Calcium 9.0 (8.4-10.2) mg/dL Magnesium 1.5 L (1.6-2.3) mg/dL Total Bilirubin 1.0 (0.2-1.3) mg/dL AST 33 (17-59) U/L ALT 30 (4-49) U/L Alkaline Phosphatase 69 (38-126) U/L Total Protein 7.4 (6.3-8.2) g/dL Albumin 4.0 (3.5-5.0) g/dL Lipase 79 (23-300) U/L - EKG Data EKG Comments: EKG performed at 13:31 sinus tachycardia rate of 107 AR 136 QRS 73 QT/QTC 317/380 (Sd Freitas) Disposition <Sd Freitas - Last Filed: 10/23/22 14:30> Is patient prescribed a controlled substance at d/c from ED?: No Time of Disposition: 17:30 <Romain Mak - Last Filed: 10/23/22 17:32> Clinical Impression: Nausea and vomiting, Hypomagnesemia, Dehydration Disposition: HOME SELF-CARE Condition: Fair Instructions (If sedation given, give patient instructions): Acute Nausea and Vomiting (ED) Referrals: Primo Forman DO [Primary Care Provider] - 1-2 days
[2022-10-23 14:18] LABS: ALT 30 U/L (4-49); AST 33 U/L (17-59); African American GFR (CKD) >90 (>60 ml/min/1.73 sqM); Alkaline Phosphatase 69 U/L (38-126); Anion Gap 18 mmol/L; Blood Urea Nitrogen 10 mg/dL (9-20); Carbon Dioxide 21 mmol/L (22-30); Chloride 96 mmol/L (98-107); Glucose 110 mg/dL (74-99); Lipase 79 U/L (23-300); Magnesium 1.5 mg/dL (1.6-2.3); Non-African American GFR(CKD) >90 (>60 ml/min/1.73 sqM); Potassium 3.6 mmol/L (3.5-5.1); Sodium 135 mmol/L (137-145); Total Protein 7.4 g/dL (6.3-8.2)
[2022-10-23] MEDS ORDERED: MAGNESIUM SULFATE-D5W PMX 1 GM in DEXTROSE/WATER 1 100ML.BAG IVPB ONE (14:30)
[2022-10-23] MEDS ORDERED: MAGNESIUM OXIDE 400 MG TAB PO STA ×3 (17:31)
[2022-10-23 17:41] VITALS: BP 135/99; PULSE 111; RESP 16; TEMP 98.6
== END 2022-10-23 17:40 | disposition home or self-care (01) ==
LOC: EC 12:56
DX: E83.42 Hypomagnesemia (principal); E86.0 Dehydration; R11.2 Nausea with vomiting, unspecified; I10 Essential (primary) hypertension; E11.9 Type 2 diabetes mellitus without complications; J45.909 Unspecified asthma, uncomplicated; Z79.899 Other long term (current) drug therapy; Z88.0 Allergy status to penicillin; Z90.49 Acquired absence of other specified parts of digestive tract
CPT/HCPCS: 36415; 80053; 83690; 83735; 85025; 99284; 96365; 96361; J3475

== ENCOUNTER → 2023-03-18 | Outpatient (CLI) | payer OTHER ==
[2023-03-18 09:30] LABS: African American GFR (CKD) 86 (>60 ml/min/1.73 sqM); Blood Urea Nitrogen 19 mg/dL (9-20); Non-African American GFR(CKD) 74 (>60 ml/min/1.73 sqM)
--- NOTE | 2023-03-18 10:11 | CT ---
EXAMINATION TYPE: CT angio chest DATE OF EXAM: 03/18/2023 9:58 AM COMPARISON: 09/05/2022 HISTORY: chest pain, thoracic aneurysm CT DLP: 1103.3 mGycm Automated exposure control for dose reduction was used. CONTRAST: CTA scan of the thorax is performed without and with IV Contrast, patient injected with 100 mL of Iso amalia 370, pulmonary embolism protocol. 3-D postprocessing was performed.. FINDINGS: LUNGS: The lungs are grossly clear, there is no concerning parenchymal mass or nodule identified. T here is no pleural effusion or pneumothorax seen. The tracheobronchial tree is patent. MEDIASTINUM: There is satisfactory enhancement of the pulmonary artery and its branches, there is no CT evidence for pulmonary embolism. There are no greater than 1 cm hilar or mediastinal lymph nodes. No pericardial effusion is seen. The great vessels the chest are normal and there is no evidence o f thoracic aortic aneurysm or dissection. OTHER: No additional significant abnormality is seen. IMPRESSION: 1. NO EVIDENCE OF THORACIC AORTIC ANEURYSM OR DISSECTION. 2. NO EVIDENCE OF PULMONARY EMBOLUS. 3 NO SIGNIFICANT ABNORMALITY SEEN.
== END | disposition home or self-care (01) ==
LOC: RADCTMAIN 08:44
PROVIDERS: ATTEND Internal Medicine Clinical Cardiac Electrophysiology
DX: I71.20 Thoracic aortic aneurysm, without rupture, unspecified (principal); R07.9 Chest pain, unspecified
CPT/HCPCS: 82565; 84520; 71275; 36415; Q9967

== ENCOUNTER 2023-05-04 00:41 | Emergency (ER) | payer OTHER ==
[2023-05-04 01:25] LABS: Basophils % (A) 0 %; Eosinophils # (A) 0.1 k/uL (0-0.7); Eosinophils % (A) 1 %; HCT 37.4 % (39.0-53.0); HGB 12.8 gm/dL (13.0-17.5); Lymphocytes # (A) 1.5 k/uL (1.0-4.8); Lymphocytes % (A) 34 %; MCH 31.8 pg (25.0-35.0); MCHC 34.3 g/dL (31.0-37.0); MCV 92.6 fL (80.0-100.0); Mean Platelet Volume 8.1; Monocytes # (A) 0.3 k/uL (0-1.0); Monocytes % (A) 8 %; Neutrophils # (A) 2.3 k/uL (1.3-7.7); Neutrophils % (A) 54 %; Platelet Count 169 k/uL (150-450); RBC 4.04 m/uL (4.30-5.90); RDW 12.8 % (11.5-15.5); WBC 4.3 k/uL (3.8-10.6)
[2023-05-04 01:28] LABS: ALT 20 U/L (4-49); AST 28 U/L (17-59); African American GFR (CKD) >90 (>60 ml/min/1.73 sqM); Albumin 3.8 g/dL (3.5-5.0); Alkaline Phosphatase 52 U/L (38-126); Amylase 68 U/L (30-110); Anion Gap 9 mmol/L; Blood Urea Nitrogen 18 mg/dL (9-20); Carbon Dioxide 21 mmol/L (22-30); Chloride 111 mmol/L (98-107); Glucose 98 mg/dL (74-99); Lipase 105 U/L (23-300); Non-African American GFR(CKD) 89 (>60 ml/min/1.73 sqM); Potassium 4.1 mmol/L (3.5-5.1); Sodium 141 mmol/L (137-145); Total Bilirubin 0.7 mg/dL (0.2-1.3); Total Protein 6.5 g/dL (6.3-8.2)
[2023-05-04 01:32] LABS: Partial Thromboplastin Time 25.4 sec (22.0-30.0); Prothrombin Time 10.7 sec (10.0-12.5)
[2023-05-04 01:41] VITALS: RESP 18; TEMP 98.3
[2023-05-04] MEDS ORDERED: ONDANSETRON 4 MG/2 ML VIAL IVP STA (01:48)
[2023-05-04] MEDS ORDERED: SODIUM CHLORIDE 0.9% 1,000 ML IV STA (01:48)
[2023-05-04] MEDS ORDERED: KETOROLAC 15 MG/ML 1 ML VIAL IVP STA (01:48)
--- NOTE | 2023-05-04 01:49 | ED ---
Abdominal Pain HPI - General Source: patient Mode of arrival: ambulatory Limitations: no limitations <Akshat Jeter - Last Filed: 05/04/23 01:49 EDT> - History of Present Illness MD Complaint: abdominal pain -: days(s) (3) Location: diffuse, periumbilical, epigastric Radiation: epigastric Migration to: periumbilical Severity: moderate Severity scale (1-10): 6 Quality: stabbing, aching Consistency: intermittent Worsens With: nothing Associated Symptoms: nausea Treatments Prior to Arrival: other (0) <Romain Mak - Last Filed: 05/04/23 23:43> - General Chief Complaint: Abdominal Pain Stated Complaint: stomach pain dizziness Time Seen by Provider: 05/04/23 01:28 EDT - History of Present Illness Initial Comments: A 32-year-old male presents to the ED with a chief complaint of abdominal pain. Patient states for the past 3 days has had pain in the middle of his abdomen. Patient states pain is constant nature. Patient reports since onset pain has increased in severity and states that today he started to become nauseous with it. Denies chest pain or shortness of breath. Denies changes in bowel or bladder habits. No other complaints. (Akshat Jeter) 32 male to the emergency department for evaluation abdominal pain significant abdominal pain which has been persistent episodic going on for 3 days and worsening. No fevers no history of surgery no other complaints (Romain Mak) - Related Data Home Medications Medication Instructions Recorded Confirmed No Known Home Medications 01/08/23 01/08/23 Allergies Allergy/AdvReac Type Severity Reaction Status Date / Time Penicillins Allergy Rash/Hives, Verified 05/04/23 01:24 EDT Difficulty breathing Review of Systems ROS Other: All systems not noted in ROS Statement are negative. <Akshat Jeter - Last Filed: 05/04/23 01:49 EDT> ROS Other: All systems not noted in ROS Statement are negative. <Romain Mak - Last Filed: 05/04/23 23:43> ROS Statement: Those systems with pertinent positive or pertinent negative responses have been documented in the HPI. Past Medical History Past Medical History: Asthma, Chest Pain / Angina, Diabetes Mellitus, GERD/Reflux, Hypertension Additional Past Medical History / Comment(s): "high heart rate" - February 2020,. gout. RECENT INPT FOR DEHYDRATION-07/31/22-08/09/22 History of Any Multi-Drug Resistant Organisms: None Reported Past Surgical History: Bariatric Surgery, Cholecystectomy Additional Past Surgical History / Comment(s): lip surgery from dog bite as a child, Gastric Bypass 06/17/22. cardioversion feb 2020 Past Anesthesia/Blood Transfusion Reactions: No Reported Reaction Past Psychological History: No Psychological Hx Reported Smoking Status: Never smoker Past Alcohol Use History: None Reported Past Drug Use History: None Reported - Past Family History Mother Family Medical History: No Reported History <Akshat Jeter - Last Filed: 05/04/23 01:49 EDT> General Exam Limitations: no limitations General appearance: alert, in no apparent distress, obese Neck exam: Present: normal inspection Respiratory exam: Present: normal lung sounds bilaterally Cardiovascular Exam: Present: regular rate, normal rhythm GI/Abdominal exam: Present: soft (Diffuse abdominal tenderness to palpation. No rebound guarding or rigidity.) Neurological exam: Present: alert, oriented X3 Skin exam: Present: warm, dry <Akshat Jeter - Last Filed: 05/04/23 01:49 EDT> General appearance: alert, in no apparent distress Head exam: Present: atraumatic, normocephalic, normal inspection Eye exam: Present: normal appearance, PERRL, EOMI. Absent: scleral icterus, conjunctival injection, periorbital swelling ENT exam: Present: normal exam, mucous membranes moist Neck exam: Present: normal inspection. Absent: tenderness, meningismus, lymphadenopathy Respiratory exam: Present: normal lung sounds bilaterally. Absent: respiratory distress, wheezes, rales, rhonchi, stridor Cardiovascular Exam: Present: regular rate, normal rhythm, normal heart sounds. Absent: systolic murmur, diastolic murmur, rubs, gallop, clicks GI/Abdominal exam: Present: soft, normal bowel sounds. Absent: distended, tenderness, guarding, rebound, rigid Extremities exam: Present: normal inspection, full ROM, normal capillary refill. Absent: tenderness, pedal edema, joint swelling, calf tenderness Back exam: Present: normal inspection Neurological exam: Present: alert, oriented X3, CN II-XII intact Psychiatric exam: Present: normal affect, normal mood Skin exam: Present: warm, dry, intact, normal color. Absent: rash <Romain Mak - Last Filed: 05/04/23 23:43> Course <Romain Mak - Last Filed: 05/04/23 23:43> Vital Signs 05/04/23 05/04/23 05/04/23 01:22 EDT 01:23 EST 02:45 Temperature 98.3 F Pulse Rate 82 71 65 Respiratory 18 16 16 Rate Blood Pressure 124/86 109/58 121/72 O2 Sat by Pulse 96 97 97 Oximetry - Reevaluation(s) Reevaluation #1: Medical Records reviewed (Romain Mak) Reevaluation #2: Patient symptoms unchanged Patient does feel improved (Romain Mak) Reevaluation #3: Patient informed results questions answered (Romain Mak) Reevaluation #4: Was pt. sent in by a medical professional or institution (, PA, MITER GRINDER OPERATOR, urgent care, hospital, or correction...) When possible be specific @ -no Did you speak to anyone other than the patient for history (EMS, parent, family, police, friend...)? What history was obtained from this source @ -no Did you review nursing and triage notes (agree or disagree)? Why? @ -agree Are old charts reviewed (outside hosp., previous admission, EMS record, old EKG, old radiological studies, urgent care reports/EKG's, correction records)? Report findings @ -yes Differential Diagnosis (chest pain, altered mental status, abdominal pain women, abdominal pain men, vaginal bleeding, weakness, fever, dyspnea, syncope, headache, dizziness, GI bleed, back pain, seizure, CVA, palpatations, mental health, musculoskeletal)? @ -prior EKG interpreted by me (3pts min.). @ -no X-rays interpreted by me (1pt min.). @ -no CT interpreted by me (1pt min.). @ -yes U/S interpreted by me (1pt. min.). @ -no What testing was considered but not performed or refused? (CT, X-rays, U/S, labs)? Why? @ -none What meds were considered but not given or refused? Why? @ -none Did you discuss the management of the patient with other professionals (pr ofessionals i.e. , PA, MITER GRINDER OPERATOR, lab, RT, psych nurse, older adult social work specialist, iron plastic bullet maker, teacher, global chief creative officer, therapeutic case manager)? Give summary @ -no Was smoking cessation discussed for >3mins.? @ -no Was critical care preformed (if so, how long)? @ -no Were there social determinants of health that impacted care today? How? (Homelessness, low income, unemployed, alcoholism, drug addiction, transportation, low edu. Level, literacy, decrease access to med. care, care home, rehab)? @ -none Was there de-escalation of care discussed even if they declined (Discuss DNR or withdrawal of care, Hospice)? DNR status @ -no What co-morbidities impacted this encounter? (DM, HTN, Smoking, COPD, CAD, Cancer, CVA, ARF, Chemo, Hep., AIDS, mental health diagnosis, sleep apnea, morbid obesity)? @ -none Was patient admitted / discharged? Hospital course, mention meds given and route, prescriptions, significant lab abnormalities, going to OR and other pertinent info. @ - 32 male to the emergency department for evaluation of nonspecific abdominal pain. Patient has no acute findings here in the ER normal testing patient symptoms are improved. patient can be discharged home Discharge Undiagnosed new problem with uncertain prognosis? @ -no Drug Therapy requiring intensive monitoring for toxicity (Heparin, Nitro, Ins ulin, Cardizem)? @ -no Were any procedures done? @ -no Diagnosis/symptom? @ -Abdominal pain Acute, or Chronic, or Acute on Chronic? @ -Acute Uncomplicated (without systemic symptoms) or Complicated (systemic symptoms)? @ -Complicated Side effects of treatment? @ -no Exacerbation, Progression, or Severe Exacerbation? @ -exacerbation Poses a threat to life or bodily function? How? (Chest pain, USA, CT, pneumonia, PE, COPD, DKA, ARF, appy, cholecystitis, CVA, Diverticulitis, Homicidal, Suici deny, threat to staff... and all critical care pts) @ -yes (Romain Mak) Reevaluation #5: Differential Abdominal Pain Men: Appendicitis, cholecystitis, diverticulosis, ischemic bowel, pancreatitis, hepatitis, UTI, gastroenteritis, AAA, incarcerated hernia, bowel obstruction, constipation, inflammatory bowel, hepatitis, peptic ulcer disease, splenic infarction, perforated viscus, testicular torsion, this is not meant to be an all-inclusive list (Romain Mak) Medical Decision Making - Lab Data Result diagrams: 05/04/23 01:05 EST 05/04/23 01:05 EST - Radiology Data Radiology results: report reviewed (CT of the abdomen and pelvis is negative for acute disease), image reviewed <Romain Mak - Last Filed: 05/04/23 23:43> - Medical Decision Making 32 male for nonspecific abdominal pain. Normal labs and normal computed tomogr aphy scan here in the ER patient feels well can be discharged home (Romain Mak) - Lab Data Lab Results 05/04/23 05/04/23 05/04/23 Range/Units 01:05 EST 01:05 EST 01:05 EST WBC 4.3 (3.8-10.6) k/uL RBC 4.04 L (4.30-5.90) m/uL Hgb 12.8 L (13.0-17.5) gm/dL Hct 37.4 L (39.0-53.0) % MCV 92.6 (80.0-100.0) fL MCH 31.8 (25.0-35.0) pg MCHC 34.3 (31.0-37.0) g/dL RDW 12.8 (11.5-15.5) % Plt Count 169 (150-450) k/uL MPV 8.1 Neutrophils % 54 % Lymphocytes % 34 % Monocytes % 8 % Eosinophils % 1 % Basophils % 0 % Neutrophils # 2.3 (1.3-7.7) k/uL Lymphocytes # 1.5 (1.0-4.8) k/uL Monocytes # 0.3 (0-1.0) k/uL Eosinophils # 0.1 (0-0.7) k/uL Basophils # 0.0 (0-0.2) k/uL PT 10.7 (10.0-12.5) sec INR 1.0 (<1.2) APTT 25.4 (22.0-30.0) sec Sodium 141 (137-145) mmol/L Potassium 4.1 (3.5-5.1) mmol/L Chloride 111 H (98-107) mmol/L Carbon Dioxide 21 L (22-30) mmol/L Anion Gap 9 mmol/L BUN 18 (9-20) mg/dL Creatinine 1.09 (0.66-1.25) mg/dL Est GFR (CKD-EPI)AfAm >90 (>60 ml/min/1.73 sqM) Est GFR (CKD-EPI)NonAf 89 (>60 ml/min/1.73 sqM) Glucose 98 (74-99) mg/dL Calcium 9.0 (8.4-10.2) mg/dL Total Bilirubin 0.7 (0.2-1.3) mg/dL AST 28 (17-59) U/L ALT 20 (4-49) U/L Alkaline Phosphatase 52 (38-126) U/L Troponin I (0.000-0.034) ng/mL Total Protein 6.5 (6.3-8.2) g/dL Albumin 3.8 (3.5-5.0) g/dL Amylase 68 (30-110) U/L Lipase 105 (23-300) U/L Urine Color Urine Appearance (Clear) Urine pH (5.0-8.0) Ur Specific Commiskey (1.001-1.035) Urine Protein (Negative) Urine Glucose (UA) (Negative) Urine Ketones (Negative) Urine Blood (Negative) Urine Nitrite (Negative) Urine Bilirubin (Negative) Urine Urobilinogen (<2.0) mg/dL Ur Leukocyte Esterase (Negative) 05/04/23 05/04/23 Range/Units 01:05 EST 01:05 EST WBC (3.8-10.6) k/uL RBC (4.30-5.90) m/uL Hgb (13.0-17.5) gm/dL Hct (39.0-53.0) % MCV (80.0-100.0) fL MCH (25.0-35.0) pg MCHC (31.0-37.0) g/dL RDW (11.5-15.5) % Plt Count (150-450) k/uL MPV Neutrophils % % Lymphocytes % % Monocytes % % Eosinophils % % Basophils % % Neutrophils # (1.3-7.7) k/uL Lymphocytes # (1.0-4.8) k/uL Monocytes # (0-1.0) k/uL Eosinophils # (0-0.7) k/uL Basophils # (0-0.2) k/uL PT (10.0-12.5) sec INR (<1.2) APTT (22.0-30.0) sec Sodium (137-145) mmol/L Potassium (3.5-5.1) mmol/L Chloride (98-107) mmol/L Carbon Dioxide (22-30) mmol/L Anion Gap mmol/L BUN (9-20) mg/dL Creatinine (0.66-1.25) mg/dL Est GFR (CKD-EPI)AfAm (>60 ml/min/1.73 sqM) Est GFR (CKD-EPI)NonAf (>60 ml/min/1.73 sqM) Glucose (74-99) mg/dL Calcium (8.4-10.2) mg/dL Total Bilirubin (0.2-1.3) mg/dL AST (17-59) U/L ALT (4-49) U/L Alkaline Phosphatase (38-126) U/L Troponin I <0.012 (0.000-0.034) ng/mL Total Protein (6.3-8.2) g/dL Albumin (3.5-5.0) g/dL Amylase (30-110) U/L Lipase (23-300) U/L Urine Color Light Yellow Urine Appearance Clear (Clear) Urine pH 6.0 (5.0-8.0) Ur Specific Commiskey 1.024 (1.001-1.035) Urine Protein Negative (Negative) Urine Glucose (UA) Negative (Negative) Urine Ketones Negative (Negative) Urine Blood Negative (Negative) Urine Nitrite Negative (Negative) Urine Bilirubin Negative (Negative) Urine Urobilinogen 3.0 (<2.0) mg/dL Ur Leukocyte Esterase Negative (Negative) Disposition <Akshat Jeter - Last Filed: 05/04/23 01:49 EDT> Is patient prescribed a controlled substance at d/c from ED?: No Time of Disposition: 05:00 <Romain Mak - Last Filed: 05/04/23 23:43> Clinical Impression: Abdominal pain Disposition: HOME SELF-CARE Condition: Good Instructions (If sedation given, give patient instructions): Abdominal Pain (ED) Referrals: Primo Forman DO [Primary Care Provider] - 1-2 days
[2023-05-04 02:54] VITALS: BP 121/72; PULSE 65
[2023-05-04 03:04] LABS: Appearance,Urine Clear (Clear); Bilirubin,Urine Negative (Negative); Blood,Urine Negative (Negative); Color,Urine Light Yellow; Glucose,Urine (UA) Negative (Negative); Ketones,Urine Negative (Negative); Leukocyte Esterase,Urine Negative (Negative); Nitrite,Urine Negative (Negative); Protein,Urine Negative (Negative); Specific Gravity,Urine 1.024 (1.001-1.035)
--- NOTE | 2023-05-04 04:58 | CT ---
EXAM: CT Abdomen and Pelvis With Intravenous Contrast CLINICAL HISTORY: ITS.REASON CT Reason: abdominal pain TECHNIQUE: Axial computed tomography images of the abdomen and pelvis with intravenous contrast. CTDI is 23.6 mGy and DLP is 1742 mGy-cm. This CT exam was performed using one or more of the following dose reduction techniques: automated exposure control, adjustment of the mA and/or kV according to patient size, and/or use of iterative reconstruction technique. COMPARISON: No relevant prior studies available. FINDINGS: Lung bases: Right lung scarring. ABDOMEN: Liver: Unremarkable. No mass. Gallbladder and bile ducts: Unremarkable. No calcified stones. No ductal dilation. Pancreas: Unremarkable. No mass. No ductal dilation. Spleen: Unremarkable. The spleen measures 13.2 cm in maximum dimension. Adrenals: Unremarkable. No mass. Kidneys and ureters: Unremarkable. No solid mass. No hydronephrosis. Stomach and bowel: Lydia-en-Y gastric bypass changes. No evidence of bowel obstruction. No mucosal thickening. PELVIS: Appendix: Normal appendix. Bladder: Unremarkable. No mass. Reproductive: Unremarkable as visualized. ABDOMEN and PELVIS: Intraperitoneal space: Unremarkable. No free air. No significant fluid collection. Bones/joints: Degenerative changes in the spine. No acute fracture. No dislocation. Soft tissues: Gynecomastia. Umbilical hernia containing fat. Vasculature: Unremarkable. No abdominal aortic aneurysm. Lymph nodes: Unremarkable. No enlarged lymph nodes. IMPRESSION: No acute findings on CT abdomen/pelvis with incidental findings as described.
== END 2023-05-04 05:23 | disposition home or self-care (01) ==
LOC: EC 00:41
DX: R10.84 Generalized abdominal pain (principal); E66.9 Obesity, unspecified; E11.9 Type 2 diabetes mellitus without complications; I10 Essential (primary) hypertension; J45.909 Unspecified asthma, uncomplicated; Z88.0 Allergy status to penicillin; Z90.49 Acquired absence of other specified parts of digestive tract; Z68.38 Body mass index [BMI] 38.0-38.9, adult
CPT/HCPCS: 36415; 80053; 82150; 83690; 84484; 85025; 85610; 85730; 81003; 74177; 99285; 96374; 96375; 96361; J2405; J1885; Q9967

== ENCOUNTER → 2023-05-14 | Outpatient (CLI) | payer OTHER ==
[2023-05-14 17:40] LABS: INR 0.9 (<1.2); Partial Thromboplastin Time 23.2 sec (22.0-30.0); Prothrombin Time 10.5 sec (10.0-12.5)
[2023-05-14 20:48] LABS: HCT 38.8 % (39.6-50.0); HGB 12.9 g/dL (13.0-17.0); MCH 30.6 pg (27.0-32.0); MCHC 33.2 g/dL (32.0-37.0); MCV 92.2 FL (80.0-97.0); Mean Platelet Volume 10.7 FL (9.5-12.2); NRBC Per 100 WBC 0 X 10*3/uL (0.00-0.01); Platelet Count 204 X 10*3/uL (140-440); RBC 4.21 X 10*6/uL (4.40-5.60); RDW 12.6 % (11.5-14.5); WBC 4.08 X 10*3/uL (4.50-10.00)
[2023-05-14 21:50] LABS: Prealbumin 19.4 mg/dL (18.0-42.0)
[2023-05-14 22:38] LABS: % Iron Saturation 22.13 (15.00-50.00); ALT 17 U/L (10-49); AST 25 U/L (14-35); Albumin 4.2 g/dL (3.8-4.9); Albumin/Globulin Ratio 1.75 Ratio (1.60-3.17); Alkaline Phosphatase 68 U/L (41-126); BUN/Creat Ratio 11.85 Ratio (12.00-20.00); Blood Urea Nitrogen 15.4 mg/dL (9.0-27.0); Calcium 9.4 mg/dL (8.7-10.3); Carbon Dioxide 24.8 mmol/L (21.6-31.8); Chloride 107 mmol/L (96-109); Chol/HDL Ratio 2.48 Ratio; Globulin 2.4 g/dL (1.6-3.3); Glucose 114 mg/dL (70-110); Iron 56 UG/DL (65-175); LDL Cholesterol,Calculated 47.3 mg/dL (0.0-131.0); Phosphorus 3.4 mg/dL (2.4-5.1); Potassium 4.2 mmol/L (3.5-5.5); Sodium 144 mmol/L (135-145); Total Bilirubin 0.5 mg/dL (0.3-1.2); Total Iron Binding Capacity 253 UG/DL (228-460); Total Protein 6.6 g/dL (6.2-8.2); VLDL Calculation 16.52 mg/dL (5.00-40.00)
[2023-05-14 23:07] LABS: Vitamin B12 <150.0 pg/mL (200.0-944.0)
[2023-05-15 10:30] LABS: Zinc, Serum 46 ug/dL (60-130)
[2023-05-16 08:40] LABS: Vitamin A 46 ug/dL (38-106)
[2023-05-16 09:14] LABS: Vit B1(Thiamine) 58 ug/L (38-122)
== END | disposition home or self-care (01) ==
LOC: LABWHC1 16:05
PROVIDERS: ATTEND Surgery Plastic and Reconstructive Surgery
DX: E66.01 Morbid (severe) obesity due to excess calories (principal); D50.8 Other iron deficiency anemias; K91.2 Postsurgical malabsorption, not elsewhere classified; E45 Retarded development following protein-calorie malnutrition; E55.9 Vitamin D deficiency, unspecified; K74.1 Hepatic sclerosis; N19 Unspecified kidney failure; T56.894A Toxic effect of other metals, undetermined, initial encounter; K50.90 Crohn's disease, unspecified, without complications
CPT/HCPCS: 36415; 80053; 80061; 82306; 82525; 82607; 82728; 82746; 83036; 83540; 83550; 83735; 83970; 84100; 84134; 84255; 84425; 84443; 84590; 84630; 85027; 85610; 85730

== ENCOUNTER → 2023-05-28 | Outpatient (CLI) | payer OTHER ==
[~2023-05-28] MED LIST changes: +CYANOCOBALAMIN 1,000 MCG/ML 1 ML VIAL IM NR; -SODIUM CHLORIDE 0.9% 2,000 ML IV NR; -SODIUM CHLORIDE 0.9% 500 ML 500 ML in EMPTY BAG 1 BAG IV PRN
[2023-05-28 08:36] VITALS: BP 118/79; PULSE 82; RESP 16; TEMP 97.9
== END ==
LOC: PROCWHC3 08:21
PROVIDERS: ATTEND Surgery Plastic and Reconstructive Surgery
DX: D51.9 Vitamin B12 deficiency anemia, unspecified (principal)
CPT/HCPCS: 96372; J3420

== ENCOUNTER → 2023-07-29 | Outpatient (CLI) | payer OTHER ==
--- NOTE | 2023-07-29 19:26 | XR ---
EXAMINATION TYPE: XR lumbar spine 2 or 3V DATE OF EXAM: 07/29/2023 5:33 PM CLINICAL INDICATION:Male, 32 years old with history of M54.50 low back pain; [facility] COMPARISON: None TECHNIQUE: XR lumbar spine 2 or 3V - FINDINGS: Five nonrib-bearing lumbar type vertebral bodies. Osseous mineralization appears appropriat e. Pedicles are intact. No evidence of loss of vertebral body height is seen. Mild disc space narrowi ng and facet arthrosis L4-L5 and L5-S1. Minimal retrolisthesis L5 on S1 is suggested. There is otherw ise normal alignment of the lumbar vertebral bodies. Unremarkable soft tissues. IMPRESSION: 1. No radiographic evidence of acute fracture. 2. Mild degenerative changes.
== END | disposition home or self-care (01) ==
LOC: RADXRMAIN 17:08
PROVIDERS: ATTEND Nurse Practitioner Family
DX: M47.817 Spondylosis without myelopathy or radiculopathy, lumbosacral region (principal)
CPT/HCPCS: 72100

== ENCOUNTER 2023-08-03 12:27 | Emergency (ER) | payer OTHER ==
[2023-08-03 13:28] LABS: Basophils % (A) 0 %; Eosinophils # (A) 0.1 k/uL (0-0.7); Eosinophils % (A) 2 %; HCT 43.1 % (39.0-53.0); HGB 14.9 gm/dL (13.0-17.5); Lymphocytes # (A) 1.3 k/uL (1.0-4.8); Lymphocytes % (A) 27 %; MCH 31.7 pg (25.0-35.0); MCHC 34.6 g/dL (31.0-37.0); MCV 91.7 fL (80.0-100.0); Mean Platelet Volume 8.2; Monocytes # (A) 0.3 k/uL (0-1.0); Monocytes % (A) 6 %; Neutrophils % (A) 63 %; Platelet Count 193 k/uL (150-450); RDW 12.5 % (11.5-15.5); WBC 4.8 k/uL (3.8-10.6)
--- NOTE | 2023-08-03 13:50 | XR ---
EXAMINATION TYPE: XR chest 2V DATE OF EXAM: 08/03/2023 COMPARISON: August 05, 2022 HISTORY: Chest pain TECHNIQUE: Frontal and lateral views of the chest are obtained. FINDINGS: There is no focal air space opacity. No evidence for pneumothorax. No pleural effusion. The cardiac silhouette size is within normal limits. The osseous structures are grossly intact. IMPRESSION: 1. No acute cardiopulmonary process.
[2023-08-03 13:53] LABS: Partial Thromboplastin Time 23.5 sec (22.0-30.0); Prothrombin Time 10.6 sec (10.0-12.5)
[2023-08-03 14:10] LABS: ALT 28 U/L (4-49); AST 30 U/L (17-59); African American GFR (CKD) >90 (>60 ml/min/1.73 sqM); Albumin 4.1 g/dL (3.5-5.0); Alkaline Phosphatase 79 U/L (38-126); Anion Gap 9 mmol/L; Blood Urea Nitrogen 17 mg/dL (9-20); Calcium 9.3 mg/dL (8.4-10.2); Carbon Dioxide 21 mmol/L (22-30); Chloride 113 mmol/L (98-107); Glucose 130 mg/dL (74-99); Magnesium 1.7 mg/dL (1.6-2.3); Non-African American GFR(CKD) 89 (>60 ml/min/1.73 sqM); Potassium 4.1 mmol/L (3.5-5.1); Sodium 143 mmol/L (137-145); Total Bilirubin 0.8 mg/dL (0.2-1.3)
[2023-08-03 15:39] VITALS: TEMP 97.9
[2023-08-03] MEDS: SODIUM CHLORIDE 0.9% 1,000 ML IV STA (15:59)
[2023-08-03 16:32] VITALS: RESP 18
--- NOTE | 2023-08-03 17:04 | ED ---
General Adult HPI - General Chief complaint: Chest Pain Stated complaint: Chest Pain, Dizziness Time Seen by Provider: 08/03/23 15:15 Source: patient, RN notes reviewed, old records reviewed Mode of arrival: ambulatory Limitations: no limitations - History of Present Illness Initial comments: Patient is a 32-year-old male who presents emergency department complaining of chest discomfort and dizziness. Describes as lightheadedness sensation as well as some left-sided chest discomfort that radiated along the muscle towards his left shoulder. Worse with movement and on palpation. Originally started yesterday. Has had some discomfort earlier this morning but is since resolved. Presents for further evaluation at this time to ensure nothing is going on with his heart. No history of cardiac disease. States he believes he was told he had a leaky valve at one point. Denies any symptoms at this time. Denies any shortness of breath, abdominal pain, nausea, vomiting, diarrhea. Denies any fevers, chills, cough. I evaluated patient after he was placed in room. Workup was started in triage. - Related Data Home Medications Medication Instructions Recorded Confirmed Cholecalciferol (Vitamin D3) 50,000 unit PO WEEKLY 05/16/23 05/28/23 [Vitamin D3] Allergies Allergy/AdvReac Type Severity Reaction Status Date / Time Penicillins Allergy Rash/Hives, Verified 08/03/23 12:39 Difficulty breathing Review of Systems ROS Statement: Those systems with pertinent positive or pertinent negative responses have been documented in the HPI. Review of Systems: CONST: Denies fever EYES: Denies blurry vision ENT: Denies nasal congestion C/V: Denies Chest pain RESP: Denies shortness of breath GI: Denies abdominal pain : Denies dysuria SKIN: Denies rash. MSK: Denies joint pain. NEURO: Denies headache ROS Other: All systems not noted in ROS Statement are negative. Past Medical History Past Medical History: Asthma, Chest Pain / Angina, Diabetes Mellitus, GERD/Reflux, Hypertension Additional Past Medical History / Comment(s): "high heart rate" - February 2020,. gout. RECENT INPT FOR DEHYDRATION-07/31/22-08/09/22 History of Any Multi-Drug Resistant Organisms: None Reported Past Surgical History: Bariatric Surgery, Cholecystectomy Additional Past Surgical History / Comment(s): lip surgery from dog bite as a child, Gastric Bypass 06/17/22. cardioversion feb 2020 Past Anesthesia/Blood Transfusion Reactions: No Reported Reaction Past Psychological History: No Psychological Hx Reported Smoking Status: Never smoker Past Alcohol Use History: None Reported Past Drug Use History: None Reported - Past Family History Mother Family Medical History: No Reported History General Exam - General Exam Comments Initial Comments: General: Appears in no acute distress. HEAD: Normal with no signs of head trauma. EYES: PERRLA, EOMI, conjunctiva normal, no discharge. ENT: Hearing grossly intact, normal oropharynx. RESPIRATORY: Clear breath sounds bilaterally. No wheezes, rales, or rhonchi. C/V: Regular rate and rhythm. S1 and S2 auscultated, no edema, peripheral pulses 2+ and intact throughout ABD: Abd is soft, nontender, nondistended EXT: Normal range of motion, no obvious deformity SKIN: No rashes or lesions observed on exposed skin. NEURO: Alert and oriented x 4. Limitations: no limitations Course Vital Signs 08/03/23 08/03/23 08/03/23 12:37 15:28 16:21 Temperature 98.4 F 97.9 F Pulse Rate 89 96 96 Respiratory 18 20 18 Rate Blood Pressure 132/82 130/69 127/79 O2 Sat by Pulse 99 100 99 Oximetry 08/03/23 16:56 Temperature Pulse Rate 85 Respiratory 18 Rate Blood Pressure 126/81 O2 Sat by Pulse 100 Oximetry Medical Decision Making - Medical Decision Making Was pt. sent in by a medical professional or institution ([facility] Shafer, [employer], urgent care, hospital, or [facility]...) When possible be specific @ -No Did you speak to anyone other than the patient for history (EMS, parent, family, police, friend...)? What history was obtained from this source @ -No Did you review nursing and triage notes (agree or disagree)? Why? @ -I reviewed and agree with nursing and triage notes Were old charts reviewed (outside hosp., previous admission, EMS record, old EKG, old radiological studies, urgent care reports/EKG's, [facility] records)? Report findings @ -Old charts viewed Differential Diagnosis (chest pain, altered mental status, abdominal pain women, abdominal pain men, vaginal bleeding, weakness, fever, dyspnea, syncope, headache, dizziness, GI bleed, back pain, seizure, CVA, palpatations, mental health, musculoskeletal)? @ -Differential Chest Pain: Stable Angina, Unstable Angina, STEMI, NSTEMI Aortic Dissection, Pneumothorax, Musculoskeletal, Esophageal Spasm GERD, Cholecystitis, Pancreatitis, Zoster, this is not meant to be an all-inclusive list. EKG interpreted by me (3pts min.). @ -As above X-rays interpreted by me (1pt min.). @ -Chest x-ray reveals no obvious acute cardiopulmonary process. CT interpreted by me (1pt min.). @ -None done U/S interpreted by me (1pt. min.). @ -None done What testing was considered but not performed or refused? (CT, X-rays, U/S, labs)? Why? @ -None What meds were considered but not given or refused? Why? @ -None Did you discuss the management of the patient with other professionals (professionals i.e. , PA, LEG BREAKER, lab, RT, psych nurse, psychotherapist social worker, engine repairer production, teacher, second officer, leather case finisher)? Give summary @ -No Was smoking cessation discussed for >3mins.? @ -No Was critical care preformed (if so, how long)? @ -No Were there social determinants of health that impacted care today? How? (Homelessness, low income, unemployed, alcoholism, drug addiction, transportation, low edu. Level, literacy, decrease access to med. care, custodial, rehab)? @ -No Was there de-escalation of care discussed even if they declined (Discuss DNR or withdrawal of care, Hospice)? DNR status @ -No What co-morbidities impacted this encounter? (DM, HTN, Smoking, COPD, CAD, Cancer, CVA, ARF, Chemo, Hep., AIDS, mental health diagnosis, sleep apnea, morbid obesity)? @ -None Was patient admitted / discharged? Hospital course, mention meds given and route, prescriptions, significant lab abnormalities, going to OR and other pertinent info. @ -Based on the patient's presentation and physical exam, symptoms have resolved but had some left-sided chest discomfort earlier this morning and last night. Workup was started in triage. Vital signs are within acceptable limits. EKG shows no obvious acute ischemic process. Chest x-ray unremarkable. Patient's laboratory studies unremarkable including an undetectable troponin. I did discuss the workup thus far for the patient. Seem to be more chest wall tenderness as it was worse with movements as well as with palpation however I did recommend we obtain a second 3-hour troponin. Patient was in agreement this plan. Second troponin remained undetectable. I updated the patient. He remains asymptomatic. Heart score is low. I did offer observation but patient feels comfortable going home and I am in agreement with this plan. Patient be discharged home at this time. Strict return precautions discussed. I instructed the patient to follow up with their PCP in the next 1-3 days. I explained that the patient should return to the emergency department if they experience any worsening symptoms. Strict return precautions were discussed with the patient. The patient expressed understanding of these instructions. I answered all questions that the patient had. The patient was discharged home in good condition with their prescriptions and follow up information. Undiagnosed new problem with uncertain prognosis? @ -No Drug Therapy requiring intensive monitoring for toxicity (Heparin, Nitro, Insulin, Cardizem)? @ -No Were any procedures done? @ -No Diagnosis/symptom? @ -Atypical chest pain Acute, or Chronic, or Acute on Chronic? @ -Acute Uncomplicated (without systemic symptoms) or Complicated (systemic symptoms)? @ -Uncomplicated Side effects of treatment? @ -No Exacerbation, Progression, or Severe Exacerbation? @ -No Poses a threat to life or bodily function? How? (Chest pain, [place], SC, pneumonia, PE, COPD, DKA, ARF, appy, cholecystitis, CVA, Diverticulitis, Homicidal, Suicidal, threat to staff... and all critical care pts) @ -Unlikely - Lab Data Result diagrams: 08/03/23 12:57 08/03/23 12:57 Lab Results 08/03/23 08/03/23 08/03/23 Range/Units 12:57 12:57 12:57 WBC 4.8 (3.8-10.6) k/uL RBC 4.70 (4.30-5.90) m/uL Hgb 14.9 (13.0-17.5) gm/dL Hct 43.1 (39.0-53.0) % MCV 91.7 (80.0-100.0) fL MCH 31.7 (25.0-35.0) pg MCHC 34.6 (31.0-37.0) g/dL RDW 12.5 (11.5-15.5) % Plt Count 193 (150-450) k/uL MPV 8.2 Neutrophils % 63 % Lymphocytes % 27 % Monocytes % 6 % Eosinophils % 2 % Basophils % 0 % Neutrophils # 3.0 (1.3-7.7) k/uL Lymphocytes # 1.3 (1.0-4.8) k/uL Monocytes # 0.3 (0-1.0) k/uL Eosinophils # 0.1 (0-0.7) k/uL Basophils # 0.0 (0-0.2) k/uL PT 10.6 (10.0-12.5) sec INR 1.0 (<1.2) APTT 23.5 (22.0-30.0) sec Sodium 143 (137-145) mmol/L Potassium 4.1 (3.5-5.1) mmol/L Chloride 113 H (98-107) mmol/L Carbon Dioxide 21 L (22-30) mmol/L Anion Gap 9 mmol/L BUN 17 (9-20) mg/dL Creatinine 1.09 (0.66-1.25) mg/dL Est GFR (CKD-EPI)AfAm >90 (>60 ml/min/1.73 sqM) Est GFR (CKD-EPI)NonAf 89 (>60 ml/min/1.73 sqM) Glucose 130 H (74-99) mg/dL Calcium 9.3 (8.4-10.2) mg/dL Magnesium 1.7 (1.6-2.3) mg/dL Total Bilirubin 0.8 (0.2-1.3) mg/dL AST 30 (17-59) U/L ALT 28 (4-49) U/L Alkaline Phosphatase 79 (38-126) U/L Troponin I (0.000-0.034) ng/mL Total Protein 7.0 (6.3-8.2) g/dL Albumin 4.1 (3.5-5.0) g/dL Influenza Type A (PCR) (Not Detectd) Influenza Type B (PCR) (Not Detectd) RSV (PCR) (Not Detectd) SARS-CoV-2 (PCR) (Not Detectd) 08/03/23 08/03/23 08/03/23 Range/Units 12:57 12:57 16:15 WBC (3.8-10.6) k/uL RBC (4.30-5.90) m/uL Hgb (13.0-17.5) gm/dL Hct (39.0-53.0) % MCV (80.0-100.0) fL MCH (25.0-35.0) pg MCHC (31.0-37.0) g/dL RDW (11.5-15.5) % Plt Count (150-450) k/uL MPV Neutrophils % % Lymphocytes % % Monocytes % % Eosinophils % % Basophils % % Neutrophils # (1.3-7.7) k/uL Lymphocytes # (1.0-4.8) k/uL Monocytes # (0-1.0) k/uL Eosinophils # (0-0.7) k/uL Basophils # (0-0.2) k/uL PT (10.0-12.5) sec INR (<1.2) APTT (22.0-30.0) sec Sodium (137-145) mmol/L Potassium (3.5-5.1) mmol/L Chloride (98-107) mmol/L Carbon Dioxide (22-30) mmol/L Anion Gap mmol/L BUN (9-20) mg/dL Creatinine (0.66-1.25) mg/dL Est GFR (CKD-EPI)AfAm (>60 ml/min/1.73 sqM) Est GFR (CKD-EPI)NonAf (>60 ml/min/1.73 sqM) Glucose (74-99) mg/dL Calcium (8.4-10.2) mg/dL Magnesium (1.6-2.3) mg/dL Total Bilirubin (0.2-1.3) mg/dL AST (17-59) U/L ALT (4-49) U/L Alkaline Phosphatase (38-126) U/L Troponin I <0.012 <0.012 (0.000-0.034) ng/mL Total Protein (6.3-8.2) g/dL Albumin (3.5-5.0) g/dL Influenza Type A (PCR) Not Detected (Not Detectd) Influenza Type B (PCR) Not Detected (Not Detectd) RSV (PCR) Not Detected (Not Detectd) SARS-CoV-2 (PCR) Not Detected (Not Detectd) - EKG Data -: EKG Interpreted by Pr EKG Comments: 12-lead Electrocardiogram Interpretation Note EKG was reviewed and interpreted by myself. 12-lead ECG performed at 1242 is interpreted by me as revealing sinus tachycardia at a rate of 102 beats per minute. [place] is normal. [place] interval is 134 ms, QRS duration 78 ms, QTc is 371 ms.. There were no ST or T wave abnormalities to suggest myocardial ischemia or injury. She has chronic T wave inversions in lead III, aVF seen on prior EKGs. R wave progression across the precordium was satisfactory. By my interpretation this EKG is non-diagnostic for acute ischemia. Disposition Clinical Impression: Atypical chest pain Disposition: HOME SELF-CARE Condition: Good Instructions (If sedation given, give patient instructions): Chest Pain (ED) Is patient prescribed a controlled substance at d/c from ED?: No Referrals: Primo Forman DO [Primary Care Provider] - 1-2 days Time of Disposition: 17:08
[2023-08-03 17:24] VITALS: BP 126/81; PULSE 85
== END 2023-08-03 17:35 | disposition home or self-care (01) ==
LOC: EC 12:27
DX: R07.89 Other chest pain (principal); R00.0 Tachycardia, unspecified; E11.9 Type 2 diabetes mellitus without complications; I10 Essential (primary) hypertension; J45.909 Unspecified asthma, uncomplicated; Z20.822 Contact with and (suspected) exposure to COVID-19; Z88.0 Allergy status to penicillin; Z90.49 Acquired absence of other specified parts of digestive tract
CPT/HCPCS: 36415; 71046; 80053; 83735; 84484; 85025; 85610; 85730; 87636; 93005; 96360; 99285

== ENCOUNTER 2023-10-06 20:04 | Emergency (ER) | payer OTHER ==
[2023-10-06 20:14] LABS: Glucose,Whole Blood 110 mg/dL (70-110)
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
[2023-10-06] MEDS: HYDROmorphone 0.5 MG/0.5 ML SYRINGE IVP STA (20:28)
[2023-10-06] MEDS: DIPH,PERTUS(ACELL)TETVAC-LF 0.5 ML VIAL IM ONE (20:29)
[2023-10-06] MEDS: SODIUM CHLORIDE 0.9% 1,000 ML IV STA (20:29)
[2023-10-06 20:43] LABS: Basophils # (A) 0.1 k/uL (0-0.2); Basophils % (A) 1 %; Eosinophils # (A) 0.1 k/uL (0-0.7); Eosinophils % (A) 2 %; HCT 42.6 % (39.0-53.0); HGB 14.2 gm/dL (13.0-17.5); Lymphocytes # (A) 2.7 k/uL (1.0-4.8); Lymphocytes % (A) 45 %; MCH 30.8 pg (25.0-35.0); MCHC 33.3 g/dL (31.0-37.0); MCV 92.6 fL (80.0-100.0); Monocytes # (A) 0.3 k/uL (0-1.0); Monocytes % (A) 6 %; Neutrophils # (A) 2.7 k/uL (1.3-7.7); Neutrophils % (A) 45 %; Platelet Count 185 k/uL (150-450); RDW 12.5 % (11.5-15.5); WBC 6.1 k/uL (3.8-10.6)
[2023-10-06 21:06] LABS: Prothrombin Time 11.1 sec (10.0-12.5)
[2023-10-06 21:16] LABS: ALT 22 U/L (4-49); AST 37 U/L (17-59); African American GFR (CKD) 87 (>60 ml/min/1.73 sqM); Albumin 3.1 g/dL (3.5-5.0); Alcohol <10 mg/dL; Alkaline Phosphatase 68 U/L (38-126); Anion Gap 9 mmol/L; Blood Urea Nitrogen 21 mg/dL (9-20); Calcium 8.1 mg/dL (8.4-10.2); Carbon Dioxide 19 mmol/L (22-30); Chloride 110 mmol/L (98-107); Glucose 126 mg/dL (74-99); Non-African American GFR(CKD) 75 (>60 ml/min/1.73 sqM); Potassium 3.9 mmol/L (3.5-5.1); Sodium 138 mmol/L (137-145); Total Bilirubin 0.6 mg/dL (0.2-1.3); Total Protein 5.5 g/dL (6.3-8.2)
[2023-10-06 21:19] LABS: Partial Thromboplastin Time 20.5 sec (22.0-30.0)
[2023-10-06 21:20] VITALS: TEMP 98.4
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
[2023-10-06] MEDS: HYDROmorphone 1 MG/ML 1 ML SYRINGE IVP STA (21:59)
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
[2023-10-06] MEDS: PROCHLORPERAZINE INJ 10 MG/2 ML VIAL IVP STA (23:06)
[2023-10-06] MEDS: KETOROLAC 15 MG/ML 1 ML VIAL IVP STA (23:06)
[2023-10-06] MEDS: ACETAMINOPHEN TAB 500 MG TAB PO STA (23:07)
[2023-10-06 23:48] VITALS: BP 129/74
[2023-10-07] MEDS: IBUPROFEN 600 MG STARTER PACK 4 TAB BTL PO STA (00:28)
[2023-10-07] MEDS: ACET/COD 300 MG/30 MG STARTER PACK 6 TAB BTL PO STA (00:28)
[2023-10-07] MEDS: ONDANSETRON 4 MG ODT STARTER PACK 2 TAB BTL PO STA (00:28)
[2023-10-07 01:23] VITALS: PULSE 91; RESP 15
== END 2023-10-07 00:42 | disposition home or self-care (01) ==
LOC: EC 20:04
DX: S80.11XA Contusion of right lower leg, initial encounter (principal); S00.81XA Abrasion of other part of head, initial encounter; Z88.0 Allergy status to penicillin; Z23 Encounter for immunization; V89.2XXA Person injured in unspecified motor-vehicle accident, traffic, initial encounter; Y92.411 Interstate highway as the place of occurrence of the external cause
CPT/HCPCS: 99285; 96374; 96375 ×2; 96376; 90471; 96361 ×2; 36415; 93005; 86900; 86901; 80053; 85025; 85610; 85730; 86850; 80320; 72170; 73552; 73590; 71045; 72125; 70450; 71260; 74177; 90715; J0780; J1170 ×2; J1885; S0119; Q9967